=== PATIENT | female | born 1970 | race American Indian/Alaskan Native ===

== ENCOUNTER 2017-10-21 11:54 | Emergency (ER) | payer BC ==
--- NOTE | 2017-10-21 16:49 | Emergency Department Report ---
Abscess Boil HPI - HPI Chief Complaint: Skin/Abscess/Foreign Body Stated Complaint: C/O OF KNOT FROM BITE/RIGHT THIGH Time Seen by Provider: 10/21/17 16:21 Duration: 2 Days Location: Lower Extremity Severity: Mild History: Yes Pain, No Fever, No Purulent Drainage, No Numbness, No Foreign Body , No Previous History, No Insect Bite HPI: This is a 47-year-old female nontoxic, well nourished in appearance, no acute signs of distress presents to the ED with c/o of right thigh abscess x2 days. Patient stated that she was bitten by unknown insect and then developed a small redness that increase as of today. Patient denies any pus, drainage, fever, chills, nausea, vomiting, chest pain or strength of breath. Patient states allergies to aspirin. Past medical history includes arthritis and diabetes. Home Medications: Previous Rx's Medication Instructions Recorded Last Taken Type Acetaminophen/Codeine [Tylenol #3] 1 tab PO Q6H PRN #15 tab 02/21/15 Unknown Rx Furosemide [Lasix TAB] 20 mg PO QDAY #30 tablet 02/21/15 Unknown Rx Sulfamethoxazole/Trimethoprim 1 each PO BID #14 tablet 10/21/17 Unknown Rx [Bactrim DS TAB] traMADol [Ultram] 50 mg PO Q6HR PRN #12 tablet 10/21/17 Unknown Rx Allergies/Adverse Reactions: Allergies Allergy/AdvReac Type Severity Reaction Status Date / Time aspirin Allergy Vomiting Verified 02/21/15 14:52 ED Review of Systems ROS: Stated complaint: C/O OF KNOT FROM BITE/RIGHT THIGH Other details as noted in HPI Constitutional: denies: chills, fever Eyes: denies: eye pain, eye discharge, vision change ENT: denies: ear pain, throat pain Respiratory: denies: cough, shortness of breath, wheezing Cardiovascular: denies: chest pain, palpitations Endocrine: no symptoms reported Gastrointestinal: denies: abdominal pain, nausea, diarrhea Genitourinary: denies: urgency, dysuria, discharge Musculoskeletal: denies: back pain, joint swelling, arthralgia Skin: denies: rash, lesions Neurological: denies: headache, weakness, paresthesias Psychiatric: denies: anxiety, depression Hematological/Lymphatic: denies: easy bleeding, easy bruising ED Past Medical Hx - Past Medical History Hx Diabetes: Yes Hx Arthritis: Yes (OSTEOARTHRITIS) - Surgical History Past Surgical History?: No - Social History Smoking Status: Never Smoker Substance Use Type: None - Medications Home Medications: Home Medications Medication Instructions Recorded Confirmed Last Taken Type Acetaminophen/Codeine [Tylenol #3] 1 tab PO Q6H PRN #15 tab 02/21/15 Unknown Rx Furosemide [Lasix TAB] 20 mg PO QDAY #30 tablet 02/21/15 Unknown Rx Sulfamethoxazole/Trimethoprim 1 each PO BID #14 tablet 10/21/17 Unknown Rx [Bactrim DS TAB] traMADol [Ultram] 50 mg PO Q6HR PRN #12 tablet 10/21/17 Unknown Rx ED Abscess Boil Physical Exam - Exam General: Vital signs noted. No distress. Alert and acting appropriately. GENERAL: The patient is a well-developed, well-nourished in no apparent distress. Patient is alert and acting appropriately for age. Alert and oriented 3, no apparent distress, normal gait, atraumatic. HEENT: Head is normocephalic and atraumatic. PERRL, Extraocular muscles are intact. Pupils are equal, round, and reactive to light and accommodation. Nares appeared normal. Mouth is well hydrated and without lesions. Mucous membranes are moist. Posterior pharynx clear of any exudate or lesions. Mouth is well hydrated and without lesions. Tonsils not erythematous or swollen. Uvula midline. Tongue elevated. Mucous members are moist. Posterior pharynx clear, no exudate or lesions. Patent airways. NECK: Supple. No carotid bruits. No lymphadenopathy or thyromegaly.nontender. No meningitic signs are noted. LUNGS: Clear to auscultation. Non labor breathing. No intercostal retractions. Symmetrical with respiration, no wheezing, no rales, or crackles. HEART: Regular rate and rhythm without murmur, rubs or gallops. No reproducible. S1, S2 present, regular rate and rhythm without murmur, no rubs, no gallops. ABDOMEN: Soft, nontender, and nondistended. Positive bowel sounds. No hepatosplenomegaly was noted. No guarding or rebound tenderness, negative epigastric bruit. Negative psoas sign, negative decker sign, negative McBurneys sign EXTREMITIES: Without any cyanosis, clubbing, rash, lesions or edema. Peripheral pulses intact. Capillary refill less than 2 seconds. Full range of motion bilaterally. NEUROLOGIC: Cranial nerves II through XII are grossly intact. Alert and oriented x 3. Normal gait. Symmetrical strength and sensation. Reflexes 2+ throughout. Cerebellar testing normal. GCS score of 15. PSYCHIATRIC: Normal affect with no suicidal or homicidal ideations. Skin: 2 cm abscess with induration and fluctuance. Tender to touch. No pus or drainage noted. Front/Back of Body, Lg (Color): 1 - 2 cm abscess Size: 2 cm Exam: Yes Tenderness, Yes Fluctuance, Yes Normal Neurologic Exam, Yes Normal Circulation, No Surrounding Cellulites/Erythema, No Lymphangitis, No Crepitation , No Heart Murmur I & D Note - I & D Note I & D Note: Under sterile field, I used Betadine to cleanse the area. I then used 2% Lidocaine plain with 25-gauge 5/8 needle to inject area for anesthetic purposes. Total volume injected 3 mL. I then used an 11 blade to make a 1 cm incision. About 2 mL's of purulent drainage has been noted. I then used a hemostat to break the abscess formation. I then used sterile 0.9% normal saline flush to flush the wound with total volume of 40 mL used. I then put a 1 /4 iodoform packing to the incision. A sterile 4 x 4 with tape has been applied as dressing. Bleeding is under control. Patient tolerated the procedure well with no signs of distress noted. ED Course Vital Signs 10/21/17 12:05 Temperature 98.2 F Pulse Rate 114 H Blood Pressure 112/64 O2 Sat by Pulse 97 Oximetry - Reevaluation(s) Reevaluation #1: 10/21/17 16:50 Patient is speaking in full sentences with no signs of distress noted. Critical care attestation.: If time is entered above; I have spent that time in minutes in the direct care of this critically ill patient, excluding procedure time. ED Medical Decision Making - Medical Decision Making This is a 47-year-old female that presents with left lateral thigh abscess. Patient is stable and was examined by me. This is incision and drainage and has been performed and patient tolerated well. A sterile dressing has been applied. Patient was educated on proper wound care. Patient is discharged with Bactrim and Ultram and was instructed not to operate any machinery while taking Ultram due to drowsiness. Patient was instructed to return in 2 days for packing removal. Patient was instructed to refer to Follow-up with a primary care doctor in 3-5 days or if symptoms worsen and continue return to emergency room as soon as possible. At time of discharge, the patient does not seem toxic or ill in appearance. No acute signs of distress noted. Patient agrees to discharge treatment plan of care. No further questions noted by the patient. ED Disposition Clinical Impression: Abscess, Encounter for incision and drainage procedure Disposition: TO HOME OR SELFCARE Is pt being admited?: No Does the pt Need Aspirin: No Condition: Stable Instructions: Abscess Incision and Drainage (ED), Abscess (ED), Tramadol (By mouth), Sulfamethoxazole/Trimethoprim (By mouth) Additional Instructions: Follow-up with a primary care doctor in 3-5 days or if symptoms worsen and continue return to emergency room as soon as possible. Return in 2 days for packing removal and reassessment of your abscess. Do not operate any machinery while taking Ultram due to possible drowsiness. Prescriptions: Sulfamethoxazole/Trimethoprim [Bactrim DS TAB] 1 each PO BID #14 tablet traMADol [Ultram] 50 mg PO Q6HR PRN #12 tablet PRN Reason: Pain Referrals: PRIMARY CAREMD [Primary Care Provider] - 3-5 Days EVANS TYSON MD [Staff Physician] - 3-[address] [facility] [Outside] - 3-5 Days [facility] [Outside] - 3-5 Days Forms: Work/School Release Form(ED)
[2017-10-21] MEDS ORDERED: XYLOCAINE 2% INFILTRATI ONE (16:53)
[2017-10-21 17:43] VITALS: BP 116/61
== END 2017-10-21 17:42 | disposition home or self-care (01) ==
LOC: ED 11:54
DX: L02.415 Cutaneous abscess of right lower limb (principal); E11.9 Type 2 diabetes mellitus without complications; M19.90 Unspecified osteoarthritis, unspecified site; Z88.6 Allergy status to analgesic agent
CPT/HCPCS: 99282

== ENCOUNTER 2017-10-23 09:42 | Emergency (ER) | payer BC ==
[2017-10-23 09:51] VITALS: BP 139/77
--- NOTE | 2017-10-23 12:13 | Emergency Department Report ---
Suture/Staple Removal - [facility] Chief Complaint: Laceration/Recheck/Suture Stated Complaint: PACKING REMOVAL Time Seen by Provider: 10/23/17 12:10 When Sutures or Joselin Placed: 2 days ago Wound Location: right lateral thigh ED Review of Systems ROS: Stated complaint: PACKING REMOVAL Other details as noted in HPI Constitutional: denies: chills, fever Respiratory: denies: cough, shortness of breath, wheezing Cardiovascular: denies: chest pain, palpitations Gastrointestinal: denies: abdominal pain, nausea, diarrhea Skin: lesions (1 cm wound on the right thigh with packing, 4 x 4 gauze and surgical tape dressing). denies: rash Neurological: denies: headache, weakness, numbness, paresthesias Psychiatric: denies: anxiety, depression ED Past Medical Hx - Past Medical History Hx Diabetes: Yes Hx Arthritis: Yes (OSTEOARTHRITIS) Additional medical history: fibromyalgia - Surgical History Additional Surgical History: c sect - Social History Smoking Status: Never Smoker Substance Use Type: None - Medications Home Medications: Home Medications Medication Instructions Recorded Confirmed Last Taken Type Acetaminophen/Codeine [Tylenol #3] 1 tab PO Q6H PRN #15 tab 02/21/15 Unknown Rx Furosemide [Lasix TAB] 20 mg PO QDAY #30 tablet 02/21/15 Unknown Rx Sulfamethoxazole/Trimethoprim 1 each PO BID #14 tablet 10/21/17 Unknown Rx [Bactrim DS TAB] traMADol [Ultram] 50 mg PO Q6HR PRN #12 tablet 10/21/17 Unknown Rx Suture Removal Exam - Exam General: Vital signs noted. No distress. Alert and acting appropriately. Wound: Yes Tenderness, No Pathologic Erythema, No Drainage, No Pus, No Wound Dehiscence Other Systems: All other systems reviewed and are unremarkable. ED Course Vital Signs 10/23/17 09:48 Temperature 98.6 F Pulse Rate 105 H Respiratory 16 Rate Blood Pressure 139/77 O2 Sat by Pulse 96 Oximetry ED Recheck MDM - Differential Diagnosis Wound Recheck - Medical Decision Making This is a 47 y.o. female that presents for packing removal of right lateral thigh wound. Patient is stable and examined by me. No acute signs of distress noted. Remove packing with forceps, cleaned with Betadine, applied 4 x 4 gauze and surgical tape dressing. Discussed plan to complete antibiotics as prescribed. Educated patient on wound assessment and signs of infection. Patient agrees to ED plan of care. Discharged home and follow up with PCP in 2- 3 days. Critical care attestation.: If time is entered above; I have spent that time in minutes in the direct care of this critically ill patient, excluding procedure time. ED Disposition Clinical Impression: Abscess packing removal Disposition: TO HOME OR SELFCARE Is pt being admited?: No Does the pt Need Aspirin: No Condition: Stable Instructions: Wound Healing and Your Diet (ED), Abscess (ED) Additional Instructions: Complete full round of bactrim DS antibiotic as prescribed. Follow up with primary care provider in 2-3 days. Return to ER if foul smelling discharge, swelling, or severe pain to wound. Referrals: [facility] [Outside] - 3-5 Days [facility] [Outside] - 3-5 Days [facility] [Outside] - 3-5 Days Forms: Work/School Release Form(ED) Time of Disposition: 12:20 Print Language: DANISH
--- NOTE | 2017-10-23 12:24 | Emergency Department Report ---
Chief Complaint: Laceration/Recheck/Suture Stated Complaint: PACKING REMOVAL Time Seen by Provider: 10/23/17 12:10 - HPI History of Present Illness: The patient's for 47-year-old female with a history of diabetes, whom presents for removal of abscess packing. She states that she received incision and drainage of abscess 2 days ago and was informed to return for removal of the packing. She reports decrease in pain and drainage from her wound. She also denies fever, paresthesias, motor deficit, color change in the right leg. - Exam Vital Signs: Vital Signs 10/23/17 09:48 Temperature 98.6 F Pulse Rate 105 H Respiratory 16 Rate Blood Pressure 139/77 O2 Sat by Pulse 96 Oximetry Physical Exam: General: well-nourished, well-developed, no acute distress, patient morbidly obese Head: Normocephalic, atraumatic Eyes: normal sclera ENT: Mucous membranes are pale and dry Neck: No neck stiffness, no cervical adenopathy Respiratory: Breath sounds equal bilaterally, no wheezing, rales, or rhonchi Cardio: S1 and S2 present, no murmurs, rubs, gallops, capillary refill is delayed Abdomen: Normoactive bowel sounds, soft abdomen, no rigidity, no guarding or rebound tenderness Musc: Minimal erythema surrounding I&D wound with packing, no purulent drainage or discharge at this time, sensation, motor deficit, and pulses intact in the right lower leg distal to the wound, the compartments are soft and pliable, no signs of compartment syndrome Skin: No rash Neuro: no facial drooping, normal speech Psych: Normal affect MSE screening note: Focused history and physical exam performed. Due to findings the following was ordered: ED Disposition for MSE Clinical Impression: Abscess packing removal Disposition: - TO HOME OR SELFCARE Is pt being admited?: No Does the pt Need Aspirin: No Condition: Stable Instructions: Wound Healing and Your Diet (ED), Abscess (ED) Additional Instructions: Complete full round of bactrim DS antibiotic as prescribed. Follow up with primary care provider in 2-3 days. Return to ER if foul smelling discharge, swelling, or severe pain to wound. Referrals: [facility] [place] [Outside] - 3-5 Days [facility] [Outside] - 3-5 Days [facility] [Outside] - 3-5 Days Forms: Work/School Release Form(ED) Print Language: CENTRAL AFRICAN
== END 2017-10-23 12:29 | disposition home or self-care (01) ==
LOC: ED 09:42
DX: Z48.01 Encounter for change or removal of surgical wound dressing (principal); M19.90 Unspecified osteoarthritis, unspecified site; E11.9 Type 2 diabetes mellitus without complications; M79.7 Fibromyalgia

== ENCOUNTER 2018-01-23 17:01 | Emergency (ER) | payer BC, OTHER ==
[2018-01-23] MEDS ORDERED: MOTRIN PO ONE ×2 (17:09→22:14)
[2018-01-23 18:10] LABS: Basophils % (Auto) 0.4 % (0.0-1.8); Eosinophils # (Auto) 0.1 K/mm3 (0.0-0.4); Eosinophils % (Auto) 0.8 % (0.0-4.3); Lymphocytes # (Auto) 2.7 K/mm3 (1.2-5.4); Lymphocytes % (Auto) 31.6 % (13.4-35.0); Mean Corpuscular HGB Conc 36 % (30-34); Mean Corpuscular Hemoglobin 31 pg (28-32); Mean Corpuscular Volume 85 fl (79-97); Monocytes # (Auto) 0.6 K/mm3 (0.0-0.8); Monocytes % (Auto) 7.2 % (0.0-7.3); Platelet Count 349 K/mm3 (140-440); Red Blood Count 4.34 M/mm3 (3.65-5.03); Red Cell Distribution Width 13.5 % (13.2-15.2)
[2018-01-23 18:18] LABS: Hematocrit 37.1 % (30.3-42.9); Hemoglobin 13.5 gm/dl (10.1-14.3)
[2018-01-23 18:19] LABS: BUN/Creatinine Ratio 20; Blood Urea Nitrogen 10 mg/dL (7-17); Calcium 9.3 mg/dL (8.4-10.2); Hemolysis Index 3
[2018-01-23 21:53] LABS: Bacteria,Urine 1+ /HPF (Negative); Bilirubin,Urine NEG (Negative); Blood,Urine NEG (Negative); Color,Urine Yellow (Yellow); Mucus,Urine FEW /HPF; Protein,Urine <15 mg/dL mg/dL (Negative); Urobilinogen,Urine < 2.0 mg/dL (<2.0)
[2018-01-23] MEDS ORDERED: ZOFRAN IV ONE (22:48)
[2018-01-23] MEDS ORDERED: DILAUDID IV ONE (22:48)
[2018-01-23] MEDS ORDERED: ROCEPHIN/NS 1 GM/50 ML 1 GM/50 ML BAG IV ONE (22:48)
--- NOTE | 2018-01-23 22:55 | Emergency Department Report ---
HPI - General Chief Complaint: Headache Time Seen by Provider: 01/23/18 22:40 - HPI HPI: Francisco 26 The patient is a 47-year-old female presented with the chief complaint of scalp pain. The patient states for 2 weeks she said "blisters" in her hair. Patient states the pain was initially intermittent. Patient denies drainage but admits to subjective fever. Patient denies any new shampoos or body washes. The patient's hair is dyed and she states it is the same dye that she's always used. The patient states scalp pain triggering her fibromyalgia causing pain in her shoulders Location: [See above] Duration: 2 weeks Quality: Pain Severity: 03/10 Modifying factors: [see above] Context: [see above] Mode of transportation: [not driving] ED Past Medical Hx - Past Medical History Hx Diabetes: Yes Hx Arthritis: Yes (OSTEOARTHRITIS) Additional medical history: fibromyalgia - Surgical History Additional Surgical History: c sect - Family History Family history: no significant - Social History Smoking Status: Former Smoker (none 1 year) Substance Use Type: None (denies illicit drug use) - Medications Home Medications: Home Medications Medication Instructions Recorded Confirmed Last Taken Type Furosemide [Lasix TAB] 20 mg PO QDAY #30 tablet 02/21/15 Unknown Rx Famotidine [Pepcid] 20 mg PO BID #14 tablet 11/23/17 Unknown Rx Insulin Lispro [HumaLOG VIAL] 0 units SQ AC #1 vial 11/23/17 Unknown Rx Lispro Insulin [Humalog] 10 unit SUB-Q AC #1 vial 11/23/17 Unknown Rx diphenhydrAMINE [Benadryl CAP] 25 mg PO Q8HR #20 capsule 11/23/17 Unknown Rx oxyCODONE /ACETAMINOPHEN [Percocet 1 tab PO Q6H PRN #20 tablet 11/23/17 Unknown Rx 5/325 mg] Amoxicillin/K Clav Tab [Augmentin 1 each PO Q12HR #6 tablet 11/25/17 Unknown Rx 500 MG TAB] Insulin Glargine [Lantus VIAL] 38 units SUB-Q QHS #1 vial 11/25/17 Unknown Rx Lispro Insulin [Humalog] 13 unit SUB-Q AC #1 vial 11/25/17 Unknown Rx Metformin HCl [Glucophage] 1,000 mg PO BID #60 tablet 11/25/17 Unknown Rx glipiZIDE [Glucotrol] 10 mg PO BID #60 tab 11/25/17 Unknown Rx Cephalexin [Keflex] 500 mg PO QID #40 capsule 01/23/18 Unknown Rx HYDROcodone/APAP 5-325 [[place] 1 - 2 each PO Q6HR PRN #20 tablet 01/23/18 Unknown Rx 5/325] Sulfamethoxazole/Trimethoprim 1 each PO BID #20 tablet 01/23/18 Unknown Rx [Bactrim DS TAB] ED Review of Systems ROS: Stated complaint: TOP HEAD BLISTERS/DIZZY Other details as noted in HPI Constitutional: fever (subjective) Eyes: denies: eye pain ENT: denies: throat pain Respiratory: no symptoms reported Cardiovascular: denies: chest pain Endocrine: no symptoms reported Gastrointestinal: denies: abdominal pain Genitourinary: denies: dysuria Musculoskeletal: denies: back pain Skin: lesions Neurological: denies: headache (patient has scalp pain not headache) Physical Exam - Physical Exam Vital Signs: Vital Signs 01/23/18 17:06 Temperature 98.5 F Pulse Rate 97 H Respiratory 16 Rate Blood Pressure 170/89 O2 Sat by Pulse 99 Oximetry Physical Exam: GENERAL: The patient is well-developed well-nourished female sitting on a stretcher appearing to be in moderate discomfort holding her scalp. [] HEENT: Normocephalic. Atraumatic. Extraocular motions are intact. There is a pustule measuring approximately 7 mm in diameter noted to the calvarium. Patient's scalp is tender to touch. No fluctuance appreciated NECK: Supple. No meningitic signs are noted. Trachea midline CHEST/LUNGS: Clear to auscultation. There is no respiratory distress noted. HEART/CARDIOVASCULAR: Regular. There is no tachycardia. There is no gallop rub or murmur. ABDOMEN: Abdomen is soft, nontender. Patient has normal bowel sounds. There is no abdominal distention. SKIN: There is a pustule measuring approximately 7 mm in diameter noted to the calvarium. Patient's scalp is tender to touch. No fluctuance appreciated. There is no diaphoresis. NEURO: The patient is awake, alert, and oriented. The patient is cooperative. The patient has no focal neurologic deficits. The patient has normal speech. Cranial nerves II-12 grossly intact, no drift MUSCULOSKELETAL: There is no evidence of acute injury. ED Course Vital Signs 01/23/18 17:06 Temperature 98.5 F Pulse Rate 97 H Respiratory 16 Rate Blood Pressure 170/89 O2 Sat by Pulse 99 Oximetry ED Medical Decision Making - Lab Data Result diagrams: 01/23/18 17:56 01/23/18 17:56 Laboratory Tests 01/23/18 01/23/18 01/23/18 17:56 17:56 17:56 WBC 8.7 RBC 4.34 Hgb 13.5 Hct 37.1 MCV 85 MCH 31 MCHC 36 H RDW 13.5 Plt Count 349 Lymph % (Auto) 31.6 Gordon % (Auto) 7.2 Eos % (Auto) 0.8 Baso % (Auto) 0.4 Lymph # 2.7 Gordon # 0.6 Eos # 0.1 Baso # 0.0 Seg Neutrophils % 60.0 Seg Neutrophils # 5.2 VBG pH 7.380 Sodium 134 L Potassium 4.2 Chloride 95.0 L Carbon Dioxide 25 Anion Gap 18 BUN 10 Creatinine 0.5 L Estimated GFR > 60 BUN/Creatinine Ratio 20 Glucose 392 H POC Glucose Calcium 9.3 Urine Color Urine Turbidity Urine pH Ur Specific Stanley Urine Protein Urine Glucose (UA) Urine Ketones Urine Blood Urine Nitrite Urine Bilirubin Urine Urobilinogen Ur Leukocyte Esterase Urine WBC (Auto) Urine RBC (Auto) U Epithel Cells (Auto) Urine Bacteria (Auto) Urine Mucus 01/23/18 01/23/18 21:17 22:52 WBC RBC Hgb Hct MCV MCH MCHC RDW Plt Count Lymph % (Auto) Gordon % (Auto) Eos % (Auto) Baso % (Auto) Lymph # Gordon # Eos # Baso # Seg Neutrophils % Seg Neutrophils # VBG pH Sodium Potassium Chloride Carbon Dioxide Anion Gap BUN Creatinine Estimated GFR BUN/Creatinine Ratio Glucose POC Glucose 200 H Calcium Urine Color Yellow Urine Turbidity Clear Urine pH 5.0 Ur Specific Stanley 1.026 Urine Protein <15 mg/dl Urine Glucose (UA) 50 Urine Ketones Neg Urine Blood Neg Urine Nitrite Neg Urine Bilirubin Neg Urine Urobilinogen < 2.0 Ur Leukocyte Esterase Neg Urine WBC (Auto) 1.0 Urine RBC (Auto) 1.0 U Epithel Cells (Auto) 3.0 Urine Bacteria (Auto) 1+ Urine Mucus Few - EKG Data -: EKG Interpreted by Me Rate: normal - EKG Data When compared to previous EKG there are: previous EKG unavailable Interpretation: other (A. fib at 86 bpm. Frequent PVCs) - Differential Diagnosis folliculitis Critical care attestation.: If time is entered above; I have spent that time in minutes in the direct care of this critically ill patient, excluding procedure time. ED Disposition Clinical Impression: Acute folliculitis, Scalp pain Disposition: TO HOME OR SELFCARE Is pt being admited?: No Does the pt Need Aspirin: No Condition: Stable Instructions: Folliculitis (ED) Additional Instructions: Return to the emergency department immediately should you develop worsening symptoms, fever, inability to tolerate food or liquid or any other concerns. 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 Please follow up with him for further evaluation) Time of Disposition: 23:13 (d/c after meds)
[2018-01-23 23:46] VITALS: BP 134/71
== END 2018-01-23 23:48 | disposition home or self-care (01) ==
LOC: ED 17:01
DX: L73.9 Follicular disorder, unspecified (principal); R51 Headache; E11.9 Type 2 diabetes mellitus without complications; M19.90 Unspecified osteoarthritis, unspecified site; Z87.891 Personal history of nicotine dependence; Z79.4 Long term (current) use of insulin; Z79.899 Other long term (current) drug therapy
CPT/HCPCS: 36415; 80048; 81001; 82805; 82962; 85025; 96365; 96375; 99284; J0696; J1170; J2405

== ENCOUNTER 2018-03-18 14:24 | Emergency (ER) | payer OTHER ==
[2018-03-18 14:43] VITALS: BP 165/87
--- NOTE | 2018-03-18 17:22 | Emergency Department Report ---
- General Chief Complaint: Skin/Abscess/Foreign Body Stated Complaint: INFECTION FROM SURGERY Time Seen by Provider: 03/18/18 17:16 Source: patient Mode of arrival: Wheelchair Limitations: No Limitations - History of Present Illness Initial Comments: This is a 47-year-old female nontoxic, well nourished in appearance, no acute signs of distress presents to the ED with c/o of wound dressing changes. They state she was released from the hospital yesterday for a incision and drainage and surgical OR and has been giving home health nurses for dressing changes but stated that she has not sent her anybody today. She stated that she must have a dressing changes daily. Patient stated that she most likely the dressing change nurse will come tomorrow. Patient did not say any fever, vomiting, chest pain, short of breath, headache, stiff neck, numbness or tingling. Allergies include aspirin. Location: other (right buttock) - Related Data Home Medications Medication Instructions Recorded Confirmed Last Taken Gabapentin [Neurontin] 900 mg PO Q8HR 03/13/18 03/13/18 Unknown Methocarbamol [Robaxin TAB] 750 mg PO QHS 03/13/18 03/13/18 Unknown Milnacipran HCl [Savella] 50 mg PO BID 03/13/18 03/13/18 Unknown Previous Rx's Medication Instructions Recorded Last Taken Type Furosemide [Lasix TAB] 20 mg PO QDAY #30 tablet 02/21/15 Unknown Rx Famotidine [Pepcid] 20 mg PO BID #14 tablet 11/23/17 Unknown Rx Insulin Lispro [HumaLOG VIAL] 0 units SQ AC #1 vial 11/23/17 Unknown Rx Lispro Insulin [Humalog] 10 unit SUB-Q AC #1 vial 11/23/17 Unknown Rx Lispro Insulin [Humalog] 13 unit SUB-Q AC #1 vial 11/25/17 Unknown Rx Insulin Glargine [Lantus VIAL] 42 units SUB-Q QHS #1 vial 03/17/18 Unknown Rx Sulfamethoxazole/Trimethoprim 2 each PO BID 10 Days tablet 03/17/18 Unknown Rx [Bactrim DS TAB] oxyCODONE /ACETAMINOPHEN [Percocet 1 tab PO Q4H PRN #14 tablet 03/17/18 Unknown Rx 5/325 mg] Allergies Allergy/AdvReac Type Severity Reaction Status Date / Time aspirin Allergy Vomiting Verified 02/21/15 14:52 ED Review of Systems ROS: Stated complaint: INFECTION FROM SURGERY Other details as noted in HPI Constitutional: denies: chills, fever Eyes: denies: eye pain, eye discharge, vision change ENT: denies: ear pain, throat pain Respiratory: denies: cough, shortness of breath, wheezing Cardiovascular: denies: chest pain, palpitations Endocrine: no symptoms reported Gastrointestinal: denies: abdominal pain, nausea, diarrhea Genitourinary: denies: urgency, dysuria, discharge Musculoskeletal: denies: back pain, joint swelling, arthralgia Skin: denies: rash, lesions Neurological: denies: headache, weakness, paresthesias Psychiatric: denies: anxiety, depression Hematological/Lymphatic: denies: easy bleeding, easy bruising ED Past Medical Hx - Past Medical History Hx Hypertension: Yes Hx Diabetes: Yes Hx Liver Disease: No Hx Renal Disease: No Hx Sickle Cell Disease: No Hx Arthritis: Yes Hx Seizures: No Hx Asthma: No Hx COPD: No Additional medical history: fibromyalgia - Surgical History Hx Pacemaker: No Hx Internal Defibrillator: No Additional Surgical History: c sect - Social History Smoking Status: Never Smoker Substance Use Type: None - Medications Home Medications: Home Medications Medication Instructions Recorded Confirmed Last Taken Type Furosemide [Lasix TAB] 20 mg PO QDAY #30 tablet 02/21/15 Unknown Rx Famotidine [Pepcid] 20 mg PO BID #14 tablet 11/23/17 Unknown Rx Insulin Lispro [HumaLOG VIAL] 0 units SQ AC #1 vial 11/23/17 Unknown Rx Lispro Insulin [Humalog] 10 unit SUB-Q AC #1 vial 11/23/17 Unknown Rx Lispro Insulin [Humalog] 13 unit SUB-Q AC #1 vial 11/25/17 Unknown Rx Gabapentin [Neurontin] 900 mg PO Q8HR 03/13/18 03/13/18 Unknown History Methocarbamol [Robaxin TAB] 750 mg PO QHS 03/13/18 03/13/18 Unknown History Milnacipran HCl [Savella] 50 mg PO BID 03/13/18 03/13/18 Unknown History Insulin Glargine [Lantus VIAL] 42 units SUB-Q QHS #1 vial 03/17/18 Unknown Rx Sulfamethoxazole/Trimethoprim 2 each PO BID 10 Days tablet 10/17/18 Unknown Rx [Bactrim DS TAB] oxyCODONE /ACETAMINOPHEN [Percocet 1 tab PO Q4H PRN #14 tablet 03/17/18 Unknown Rx 5/325 mg] ED Physical Exam - General Limitations: No Limitations General appearance: alert, in no apparent distress - Head Head exam: Present: atraumatic, normocephalic - Eye Eye exam: Present: normal appearance - ENT ENT exam: Present: mucous membranes moist - Neck Neck exam: Present: normal inspection - Respiratory Respiratory exam: Present: normal lung sounds bilaterally. Absent: respiratory distress - Cardiovascular Cardiovascular Exam: Present: regular rate, normal rhythm. Absent: systolic murmur, diastolic murmur, rubs, gallop - GI/Abdominal GI/Abdominal exam: Present: soft, normal bowel sounds - Rectal Rectal exam: Present: normal inspection, other (open wound about 3 in x3 in with foul odor and purulent drainage. Iodupform packing in place.) - Extremities Exam Extremities exam: Present: normal inspection - Back Exam Back exam: Present: normal inspection - Neurological Exam Neurological exam: Present: alert, oriented X3 - Psychiatric Psychiatric exam: Present: normal affect, normal mood - Skin Skin exam: Present: warm, dry, intact, normal color. Absent: rash ED Course Vital Signs 03/18/18 14:36 Temperature 97.9 F Pulse Rate 91 H Respiratory 20 Rate Blood Pressure 165/87 O2 Sat by Pulse 97 Oximetry - Reevaluation(s) Reevaluation #1: 03/18/18 17:25 Patient is speaking in full sentences with no signs of distress noted. ED Medical Decision Making - Medical Decision Making This is a 47-year-old female who presents with a dressing change. Patient is stable and was examined by me. The dressing has been change successfully with one half iodoform placed as well as cleaned with Betadine and water as well as wound cleansing soap. Sterile dressing has been applied. I did educate on proper wound care. Patient stated that she does have wound health care nurse with [facility]. Patient was referred to Follow-up with a primary care doctor in 3-5 days or if symptoms worsen and continue return to emergency room as soon as possible. At time of discharge, the patient does not seem toxic or ill in appearance. No acute signs of distress noted. Patient agrees to discharge treatment plan of care. No further questions noted by the patient. Critical care attestation.: If time is entered above; I have spent that time in minutes in the direct care of this critically ill patient, excluding procedure time. ED Disposition Clinical Impression: Encounter for surgical wound dressing change Disposition: TO HOME OR SELFCARE Is pt being admited?: No Does the pt Need Aspirin: No Condition: Stable Instructions: Acute Wound Care (ED) Additional Instructions: Follow-up with a primary care doctor in 3-5 days or if symptoms worsen and continue return to emergency room as soon as possible. Continue taking antibiotics as prescribed to you during her previous visit. Referrals: PRIMARY CAREMD [Primary Care Provider] - 3-5 Days EVANS TYSON MD [Staff Physician] - 3-5 Days [facility] [place] [Outside] - 3-5 Days [facility] [Outside] - 3-5 Days Forms: Work/School Release Form(ED)
== END 2018-03-18 18:15 | disposition home or self-care (01) ==
LOC: ED 14:24
DX: Z48.01 Encounter for change or removal of surgical wound dressing (principal); I10 Essential (primary) hypertension; E11.9 Type 2 diabetes mellitus without complications; Z79.4 Long term (current) use of insulin; M79.7 Fibromyalgia; Z88.6 Allergy status to analgesic agent
CPT/HCPCS: 99282

== ENCOUNTER 2019-04-21 05:56 | Emergency (ER) | payer BC, OTHER ==
[2019-04-21] MEDS ORDERED: oxyCODONE /ACETAMINOPHEN 5-325MG TAB PO ONE (08:11)
[2019-04-21] MEDS ORDERED: GABAPENTIN 300 MG CAP PO ONE (08:12)
--- NOTE | 2019-04-21 08:18 | Emergency Department Report ---
ED General Adult HPI - General Chief complaint: Neuro Symptoms/Deficit Stated complaint: BILATERAL SWOLLEN FEET/PAINFUL Time Seen by Provider: 04/21/19 08:11 Source: patient Mode of arrival: Ambulatory Limitations: No Limitations - History of Present Illness Initial comments: Mrs. Philippe is a 48 yo female with hx of DM, HTN, fibromyalgia and OA who prese nts with pain in legs and feet for the past 3 weeks. She has had discoloration in her feet, cold blue as if she has "frostbite". She has not had gabapentin for the past month. The dose is 900 mg three times a day. She currently does not have a PCP. She has not taken BP medications in quite some times. Currently, she has burning pain in her hands and legs. She has had intermittent nondescript chest pain, not associated with exertion. No association with shortness of breath. -: Gradual, week(s) (3) Location: left, right, upper extremity, lower extremity Severity scale (0 -10): 9 Quality: burning Consistency: constant Improves with: none Worsens with: none Associated Symptoms: denies other symptoms Treatments Prior to Arrival: none - Related Data Home Medications Medication Instructions Recorded Confirmed Last Taken Gabapentin 900 mg PO Q8HR 03/13/18 03/13/18 Unknown Milnacipran HCl [Savella] 50 mg PO BID 03/13/18 03/13/18 Unknown methOCARBAMOL [Robaxin TAB] 750 mg PO QHS 03/13/18 03/13/18 Unknown Previous Rx's Medication Instructions Recorded Last Taken Type Furosemide [Lasix TAB] 20 mg PO QDAY #30 tablet 02/21/15 Unknown Rx Famotidine [Pepcid] 20 mg PO BID #14 tablet 11/23/17 Unknown Rx Insulin Lispro [HumaLOG VIAL] 0 units SQ AC #1 vial 11/23/17 Unknown Rx Lispro Insulin [HumaLOG] 10 unit SUB-Q AC #1 vial 11/23/17 Unknown Rx Lispro Insulin [HumaLOG] 13 unit SUB-Q AC #1 vial 11/25/17 Unknown Rx Insulin Glargine [Lantus VIAL] 42 units SUB-Q QHS #1 vial 03/17/18 Unknown Rx Sulfamethoxazole/Trimethoprim 2 each PO BID 10 Days tablet 03/17/18 Unknown Rx [Bactrim DS TAB] oxyCODONE /ACETAMINOPHEN [Percocet 1 tab PO Q4H PRN #14 tablet 03/17/18 Unknown Rx 5/325 mg] Allergies Allergy/AdvReac Type Severity Reaction Status Date / Time aspirin Allergy Vomiting Verified 02/21/15 14:52 ED Review of Systems ROS: Stated complaint: BILATERAL SWOLLEN FEET/PAINFUL Other details as noted in HPI Comment: All other systems reviewed and negative Constitutional: denies: chills, fever, malaise Respiratory: denies: cough Cardiovascular: chest pain. denies: dyspnea on exertion Musculoskeletal: myalgia ED Past Medical Hx - Past Medical History Previous Medical History?: Yes Hx Hypertension: Yes Hx Diabetes: Yes Hx Liver Disease: No Hx Renal Disease: No Hx Sickle Cell Disease: No Hx Arthritis: Yes Hx Seizures: No Hx Asthma: No Hx COPD: No Additional medical history: fibromyalgia - Surgical History Past Surgical History?: Yes Hx Pacemaker: No Hx Internal Defibrillator: No Additional Surgical History: c sect - Social History Smoking Status: Never Smoker - Medications Home Medications: Home Medications Medication Instructions Recorded Confirmed Last Taken Type Furosemide [Lasix TAB] 20 mg PO QDAY #30 tablet 02/21/15 Unknown Rx Famotidine [Pepcid] 20 mg PO BID #14 tablet 11/23/17 Unknown Rx Insulin Lispro [HumaLOG VIAL] 0 units SQ AC #1 vial 11/23/17 Unknown Rx Lispro Insulin [HumaLOG] 10 unit SUB-Q AC #1 vial 11/23/17 Unknown Rx Lispro Insulin [HumaLOG] 13 unit SUB-Q AC #1 vial 11/25/17 Unknown Rx Gabapentin 900 mg PO Q8HR 03/13/18 03/13/18 Unknown History Milnacipran HCl [Savella] 50 mg PO BID 03/13/18 03/13/18 Unknown History methOCARBAMOL [Robaxin TAB] 750 mg PO QHS 03/13/18 03/13/18 Unknown History Insulin Glargine [Lantus VIAL] 42 units SUB-Q QHS #1 vial 03/17/18 Unknown Rx Sulfamethoxazole/Trimethoprim 2 each PO BID 10 Days tablet 03/17/18 Unknown Rx [Bactrim DS TAB] oxyCODONE /ACETAMINOPHEN [Percocet 1 tab PO Q4H PRN #14 tablet 03/17/18 Unknown Rx 5/325 mg] ED Physical Exam - General Limitations: No Limitations General appearance: alert, in no apparent distress - Head Head exam: Present: atraumatic, normocephalic - Eye Eye exam: Present: normal appearance - ENT ENT exam: Present: mucous membranes moist - Neck Neck exam: Present: normal inspection - Respiratory Respiratory exam: Present: normal lung sounds bilaterally, rhonchi. Absent: respiratory distress, wheezes, rales - Cardiovascular Cardiovascular Exam: Present: regular rate, normal rhythm, normal heart sounds. Absent: systolic murmur, diastolic murmur, rubs, gallop - GI/Abdominal GI/Abdominal exam: Present: soft, normal bowel sounds. Absent: distended, tenderness, guarding, rebound - Extremities Exam Extremities exam: Present: normal inspection - Neurological Exam Neurological exam: Present: alert, oriented X3 - Psychiatric Psychiatric exam: Present: normal affect, normal mood - Skin Skin exam: Present: warm, dry, intact, normal color. Absent: rash ED Course Vital Signs 04/21/19 04/21/19 04/21/19 06:04 06:45 07:35 Temperature 98.7 F 98.2 F Pulse Rate 112 H 102 H 116 H Respiratory 20 24 15 Rate Blood Pressure Blood Pressure 174/102 131/86 151/91 [Right] O2 Sat by Pulse 98 100 Oximetry 04/21/19 04/21/19 08:28 08:35 Temperature Pulse Rate 98 H 111 H Respiratory 14 Rate Blood Pressure 163/93 Blood Pressure 163/93 [Right] O2 Sat by Pulse Oximetry ED Medical Decision Making - Medical Decision Making Mrs. Philippe presents with pain typical of neuropathy which has been well-documen den since 2014. Withdrawal from Gabapentin has exacerbated her pain. Denies chest pain currently. I suspect tachycardia is due to pain. I do not suspect PE or ACS. 1. neuropathy: hx of fibromyalgia and peripheral neuropathy, no clinical evidence of PVD: prescribed gabapentin 300 mg TID until seen by her casket coverer and neurologist, also prescribed 10 tabs of percocet 2. HTN: referred to new outpatient physician field application engineer upon discharge repeat blood pressure 163/89 3. Diabetes mellitus: Home medication prescribed meformin 1000 mg twice a day and did note that patient had previous insulin prescriptions from 2018. She is currently not compliant with insulin therapy 4. Chest pain: Nonspecific low risk for ACS, referral form for chest pain evaluation sent to [facility] prior to discharge Critical care attestation.: If time is entered above; I have spent that time in minutes in the direct care of this critically ill patient, excluding procedure time. ED Disposition Clinical Impression: Uncontrolled diabetes mellitus, Fibromyalgia, Peripheral neuropathic pain, Peripheral neuropathy, Chest pain Disposition: TO HOME OR SELFCARE Is pt being admited?: No Does the pt Need Aspirin: No Condition: Stable Instructions: Diabetes Mellitus Type 2 in Adults (ED), Chest Pain (ED) Referrals: DESTINEY SPEARS DO [Staff Physician] - 3-5 Days Forms: Work/School Release Form(ED)
[2019-04-21] MEDS ORDERED: amLODIPine 5 MG TAB PO ONE (08:22)
[2019-04-21 08:29] VITALS: BP 163/93
== END 2019-04-21 09:07 | disposition home or self-care (01) ==
LOC: ED 05:56
DX: E11.65 Type 2 diabetes mellitus with hyperglycemia (principal); M79.7 Fibromyalgia; M79.2 Neuralgia and neuritis, unspecified; I10 Essential (primary) hypertension; E11.9 Type 2 diabetes mellitus without complications; M19.90 Unspecified osteoarthritis, unspecified site; Z98.890 Other specified postprocedural states; Z79.899 Other long term (current) drug therapy; Z88.6 Allergy status to analgesic agent
CPT/HCPCS: 82962; 93005; 93010

== ENCOUNTER 2019-05-07 11:01 | Emergency (ER) | payer OTHER ==
[2019-05-07 11:12] VITALS: BP 152/87
--- NOTE | 2019-05-07 11:21 | Event Note ---
ED Screening Note Date of service: 05/07/19 Time: 11:17 ED Screening Note: 48 y/o female comes in for swelling of hands and feet. Generalized pain. Worst on right side. Has no PCP. Has been off her fibromyaliga medication. This initial assessment/diagnostic orders/clinical plan/treatment(s) is/are subject to change based on patients health status, clinical progression and re- assessment by fellow clinical providers in the ED. Further treatment and workup at subsequent clinical providers discretion. Patient/guardian urged not to elope from the ED as their condition may be serious if not clinically assessed and managed. Initial orders include:
[2019-05-07] MEDS ORDERED: oxyCODONE /ACETAMINOPHEN 5-325MG TAB PO ONE (11:49)
[2019-05-07] MEDS ORDERED: predniSONE 20 MG TAB PO ONE (11:49)
[2019-05-07 11:52] LABS: Basophils % (Auto) 0.4 % (0.0-1.8); Eosinophils # (Auto) 0.1 K/mm3 (0.0-0.4); Eosinophils % (Auto) 0.8 % (0.0-4.3); Hematocrit 41.6 % (30.3-42.9); Hemoglobin 14.3 gm/dl (10.1-14.3); Lymphocytes # (Auto) 2.9 K/mm3 (1.2-5.4); Lymphocytes % (Auto) 42.3 % (13.4-35.0); Mean Corpuscular HGB Conc 34 % (30-34); Mean Corpuscular Volume 87 fl (79-97); Monocytes # (Auto) 0.5 K/mm3 (0.0-0.8); Monocytes % (Auto) 7.7 % (0.0-7.3); Platelet Count 351 K/mm3 (140-440); Red Cell Distribution Width 13.6 % (13.2-15.2)
--- NOTE | 2019-05-07 12:00 | Emergency Department Report ---
ED General Adult HPI - General Chief complaint: Pain General Stated complaint: OFF BALANCE/BODY CRAMPING ALL OVER Time Seen by Provider: 05/07/19 11:17 Source: patient Mode of arrival: Ambulatory Limitations: No Limitations - History of Present Illness Initial comments: CC: "I am not getting better:" HPI: Mrs. Philippe is a 48 yo female with hx of IDDM, fibromyalgia, COPD who presents with diffuse burning pain in her arms and legs. Persistent pain since I have evaluated her greater than 2 weeks ago 04/21/2019. She wants to know what is wrong with her. She has been unable to work due to severe pain. Consequently, she is unable to afford her co-pay. Diffuse burning persistent pain in arms and legs. She is able to walk. No trouble with speech or paralysis. -: Gradual, week(s) (several weeks) Location: left, right, upper extremity, lower extremity Quality: burning Consistency: constant Improves with: none Worsens with: none Associated Symptoms: denies other symptoms Treatments Prior to Arrival: none - Related Data Home Medications Medication Instructions Recorded Confirmed Last Taken Gabapentin 900 mg PO Q8HR 03/13/18 03/13/18 Unknown Milnacipran HCl [Savella] 50 mg PO BID 03/13/18 03/13/18 Unknown methOCARBAMOL [Robaxin TAB] 750 mg PO QHS 03/13/18 03/13/18 Unknown Previous Rx's Medication Instructions Recorded Last Taken Type Furosemide [Lasix TAB] 20 mg PO QDAY #30 tablet 02/21/15 Unknown Rx Famotidine [Pepcid] 20 mg PO BID #14 tablet 11/23/17 Unknown Rx Insulin Lispro [HumaLOG VIAL] 0 units SQ AC #1 vial 11/23/17 Unknown Rx Lispro Insulin [HumaLOG] 10 unit SUB-Q AC #1 vial 11/23/17 Unknown Rx Lispro Insulin [HumaLOG] 13 unit SUB-Q AC #1 vial 11/25/17 Unknown Rx Insulin Glargine [Lantus VIAL] 42 units SUB-Q QHS #1 vial 03/17/18 Unknown Rx Sulfamethoxazole/Trimethoprim 2 each PO BID 10 Days tablet 03/17/18 Unknown Rx [Bactrim DS TAB] oxyCODONE /ACETAMINOPHEN [Percocet 1 tab PO Q4H PRN #14 tablet 03/17/18 Unknown Rx 5/325 mg] Gabapentin 300 mg PO Q8HR #90 capsule 04/21/19 Unknown Rx Metformin HCl [metFORMIN] 1,000 mg PO BID #60 tablet 04/21/19 Unknown Rx oxyCODONE /ACETAMINOPHEN [Percocet 1 tab PO Q6HR PRN #10 tablet 04/21/19 Unknown Rx 5/325] Cyclobenzaprine [Flexeril 10 MG 10 mg PO QHS 14 Days #14 tablet 05/07/19 Unknown Rx TAB] Allergies Allergy/AdvReac Type Severity Reaction Status Date / Time aspirin Allergy Vomiting Verified 02/21/15 14:52 ED Review of Systems ROS: Stated complaint: OFF BALANCE/BODY CRAMPING ALL OVER Other details as noted in HPI Comment: All other systems reviewed and negative Constitutional: malaise Cardiovascular: denies: chest pain Gastrointestinal: denies: abdominal pain, nausea, vomiting Neurological: paresthesias. denies: headache, weakness, numbness, confusion, abnormal gait ED Past Medical Hx - Past Medical History Previous Medical History?: Yes Hx Hypertension: Yes Hx Diabetes: Yes Hx Liver Disease: No Hx Renal Disease: No Hx Sickle Cell Disease: No Hx Arthritis: Yes Hx Seizures: No Hx Asthma: No Hx COPD: No Additional medical history: fibromyalgia - Surgical History Hx Pacemaker: No Hx Internal Defibrillator: No Additional Surgical History: c sect - Social History Smoking Status: Never Smoker Substance Use Type: None - Medications Home Medications: Home Medications Medication Instructions Recorded Confirmed Last Taken Type Furosemide [Lasix TAB] 20 mg PO QDAY #30 tablet 02/21/15 Unknown Rx Famotidine [Pepcid] 20 mg PO BID #14 tablet 11/23/17 Unknown Rx Insulin Lispro [HumaLOG VIAL] 0 units SQ AC #1 vial 11/23/17 Unknown Rx Lispro Insulin [HumaLOG] 10 unit SUB-Q AC #1 vial 11/23/17 Unknown Rx Lispro Insulin [HumaLOG] 13 unit SUB-Q AC #1 vial 11/25/17 Unknown Rx Gabapentin 900 mg PO Q8HR 03/13/18 03/13/18 Unknown History Milnacipran HCl [Savella] 50 mg PO BID 03/13/18 03/13/18 Unknown History methOCARBAMOL [Robaxin TAB] 750 mg PO QHS 03/13/18 03/13/18 Unknown History Insulin Glargine [Lantus VIAL] 42 units SUB-Q QHS #1 vial 03/17/18 Unknown Rx Sulfamethoxazole/Trimethoprim 2 each PO BID 10 Days tablet 03/17/18 Unknown Rx [Bactrim DS TAB] oxyCODONE /ACETAMINOPHEN [Percocet 1 tab PO Q4H PRN #14 tablet 03/17/18 Unknown Rx 5/325 mg] Gabapentin 300 mg PO Q8HR #90 capsule 04/21/19 Unknown Rx Metformin HCl [metFORMIN] 1,000 mg PO BID #60 tablet 04/21/19 Unknown Rx oxyCODONE /ACETAMINOPHEN [Percocet 1 tab PO Q6HR PRN #10 tablet 04/21/19 Unknown Rx 5/325] Cyclobenzaprine [Flexeril 10 MG 10 mg PO QHS 14 Days #14 tablet 05/07/19 Unknown Rx TAB] ED Physical Exam - General Limitations: No Limitations General appearance: alert, in no apparent distress, other (sitting in chair, legs crossed at the ankle) - Head Head exam: Present: atraumatic, normocephalic - Eye Eye exam: Present: normal appearance - ENT ENT exam: Present: mucous membranes moist - Neck Neck exam: Present: normal inspection, full ROM - Respiratory Respiratory exam: Present: normal lung sounds bilaterally. Absent: respiratory distress, wheezes, rales, rhonchi - Cardiovascular Cardiovascular Exam: Present: regular rate, normal rhythm, normal heart sounds. Absent: systolic murmur, diastolic murmur, rubs, gallop - GI/Abdominal GI/Abdominal exam: Present: soft, normal bowel sounds. Absent: distended, tenderness, guarding, rebound - Extremities Exam Extremities exam: Present: normal inspection - Back Exam Back exam: Present: normal inspection - Neurological Exam Neurological exam: Present: alert, oriented X3, CN II-XII intact, normal gait. Absent: motor sensory deficit - Psychiatric Psychiatric exam: Present: normal affect, normal mood - Skin Skin exam: Present: warm, dry, intact, normal color. Absent: rash ED Course Vital Signs 05/07/19 11:08 Temperature 98.4 F Pulse Rate 94 H Respiratory 20 Rate Blood Pressure 152/87 O2 Sat by Pulse 98 Oximetry ED Medical Decision Making - Lab Data Result diagrams: 05/07/19 11:22 05/07/19 11:22 - Medical Decision Making Mrs. Philippe presents with burning pain in all 4 extremities. She is neurovascularly intact. CBC, BMP, CXR unremarkable. I provided 10 tabs Percocet last encounters. She has monthly prescription for Tylenol # 3 from several providers affiliated with several hospitals for the past year. She will need outpatient pain management and further evaluation. She is not convinced that her symptoms are explained by fibromyalgia. In lieu of opioid medication, I have prescribed cyclobenzaprine which should aid with sleep. I provided referral to outpatient medicine physician and neurologist. BG [id number] on chemistry Upon further hx, Mrs. Philippe informed me that she has bilateral carpal tunnel syndrome. 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 She is unable to wield a knife. Surgical inte rvention in the past has been recommended for her diagnosis. I also provided orthopedic surgery referral. Critical care attestation.: If time is entered above; I have spent that time in minutes in the direct care of this critically ill patient, excluding procedure time. ED Disposition Clinical Impression: Neuropathic pain, Peripheral neuropathic pain Disposition: DC-01 TO HOME OR SELFCARE Is pt being admited?: No Does the pt Need Aspirin: No Condition: Stable Instructions: Peripheral Neuropathy (ED), Paresthesia (ED) Prescriptions: Cyclobenzaprine [Flexeril 10 MG TAB] 10 mg PO QHS 14 Days #14 tablet Referrals: HAYLEE LUCIA MD [Staff Physician] - 3-5 Days NATY LARA MD [Staff Physician] - 3-5 Days KENNY SANTOS MD [Staff Physician] - 3-5 Days Forms: Work/School Release Form(ED)
--- NOTE | 2019-05-07 12:05 | XRay Report ---
CHEST 2 VIEWS INDICATION: diffuse body pain. COMPARISON: 03/13/2018 FINDINGS: Support devices: None. Heart: Within normal limits. Lungs/pleura: No acute air space or interstitial disease. No pneumothorax. Additional findings: None. IMPRESSION: 1. No acute findings. Signer Name: Zechariah Langley MD Signed: 05/07/2019 12:00 PM Workstation Name: [id number]
[2019-05-07 12:31] LABS: Alanine Aminotransferase 17 units/L (7-56); BUN/Creatinine Ratio 20; Blood Urea Nitrogen 10 mg/dL (7-17); Calcium 9.3 mg/dL (8.4-10.2); Hemolysis Index 10
== END 2019-05-07 13:07 | disposition home or self-care (01) ==
LOC: ED 11:01
DX: E11.40 Type 2 diabetes mellitus with diabetic neuropathy, unspecified (principal); I10 Essential (primary) hypertension; E11.9 Type 2 diabetes mellitus without complications; M19.90 Unspecified osteoarthritis, unspecified site; Z98.890 Other specified postprocedural states; Z79.899 Other long term (current) drug therapy; Z88.6 Allergy status to analgesic agent
CPT/HCPCS: 36415; 71046; 80053; 85025; J7512

== ENCOUNTER 2019-05-21 05:34 | Emergency (ER) | payer OTHER ==
[2019-05-21 05:49] VITALS: BP 134/82
[2019-05-21] MEDS ORDERED: HYDROcodone/ACETAMINOPHEN 5-325 MG TAB PO STA (08:27)
--- NOTE | 2019-05-21 10:01 | Emergency Department Report ---
ED Extremity Problem HPI - General Chief complaint: Extremity Injury, Lower Stated complaint: INNER R THIGH SWELLING/PAIN Time Seen by Provider: 05/21/19 08:26 Source: patient Mode of arrival: Ambulatory Limitations: No Limitations - History of Present Illness MD Complaint: extremity pain -: Gradual, week(s) (2) Location: right, lower extremity History of Same: No -: Yes myalgia Radiation: proximal Severity scale (0 -10): 10 Quality: stabbing, aching Consistency: constant Worsens with: weight bearing, walking, palpation Associated Symptoms: denies: chest pain, shortness of breath, fever, myalgias, arthralgias, rash - Related Data Home Medications Medication Instructions Recorded Confirmed Last Taken Gabapentin 900 mg PO Q8HR 03/13/18 03/13/18 Unknown Milnacipran HCl [Savella] 50 mg PO BID 03/13/18 03/13/18 Unknown methOCARBAMOL [Robaxin TAB] 750 mg PO QHS 03/13/18 03/13/18 Unknown Previous Rx's Medication Instructions Recorded Last Taken Type Furosemide [Lasix TAB] 20 mg PO QDAY #30 tablet 02/21/15 Unknown Rx Famotidine [Pepcid] 20 mg PO BID #14 tablet 11/23/17 Unknown Rx Insulin Lispro [HumaLOG VIAL] 0 units SQ AC #1 vial 11/23/17 Unknown Rx Lispro Insulin [HumaLOG] 10 unit SUB-Q AC #1 vial 11/23/17 Unknown Rx Lispro Insulin [HumaLOG] 13 unit SUB-Q AC #1 vial 11/25/17 Unknown Rx Insulin Glargine [Lantus VIAL] 42 units SUB-Q QHS #1 vial 03/17/18 Unknown Rx Sulfamethoxazole/Trimethoprim 2 each PO BID 10 Days tablet 03/17/18 Unknown Rx [Bactrim DS TAB] oxyCODONE /ACETAMINOPHEN [Percocet 1 tab PO Q4H PRN #14 tablet 03/17/18 Unknown Rx 5/325 mg] Gabapentin 300 mg PO Q8HR #90 capsule 04/21/19 Unknown Rx Metformin HCl [metFORMIN] 1,000 mg PO BID #60 tablet 04/21/19 Unknown Rx oxyCODONE /ACETAMINOPHEN [Percocet 1 tab PO Q6HR PRN #10 tablet 04/21/19 Unknown Rx 5/325] Cyclobenzaprine [Flexeril 10 MG 10 mg PO QHS 14 Days #14 tablet 05/07/19 Unknown Rx TAB] Ketorolac [Toradol] 10 mg PO Q6H PRN #20 tablet 05/21/19 Unknown Rx methOCARBAMOL [Robaxin TAB] 750 mg PO Q8H #20 tablet 05/21/19 Unknown Rx Allergies Allergy/AdvReac Type Severity Reaction Status Date / Time aspirin Allergy Vomiting Verified 02/21/15 14:52 ED Review of Systems ROS: Stated complaint: INNER R THIGH SWELLING/PAIN Other details as noted in HPI Comment: All other systems reviewed and negative ED Past Medical Hx - Past Medical History Previous Medical History?: Yes Hx Hypertension: Yes Hx Diabetes: Yes Hx Liver Disease: No Hx Renal Disease: No Hx Sickle Cell Disease: No Hx Arthritis: Yes Hx Seizures: No Hx Asthma: No Hx COPD: No Additional medical history: fibromyalgia - Surgical History Past Surgical History?: Yes Hx Pacemaker: No Hx Internal Defibrillator: No Additional Surgical History: c sect - Social History Smoking Status: Former Smoker Substance Use Type: None - Medications Home Medications: Home Medications Medication Instructions Recorded Confirmed Last Taken Type Furosemide [Lasix TAB] 20 mg PO QDAY #30 tablet 02/21/15 Unknown Rx Famotidine [Pepcid] 20 mg PO BID #14 tablet 11/23/17 Unknown Rx Insulin Lispro [HumaLOG VIAL] 0 units SQ AC #1 vial 11/23/17 Unknown Rx Lispro Insulin [HumaLOG] 10 unit SUB-Q AC #1 vial 11/23/17 Unknown Rx Lispro Insulin [HumaLOG] 13 unit SUB-Q AC #1 vial 11/25/17 Unknown Rx Gabapentin 900 mg PO Q8HR 03/13/18 03/13/18 Unknown History Milnacipran HCl [Savella] 50 mg PO BID 03/13/18 03/13/18 Unknown History methOCARBAMOL [Robaxin TAB] 750 mg PO QHS 03/13/18 03/13/18 Unknown History Insulin Glargine [Lantus VIAL] 42 units SUB-Q QHS #1 vial 03/17/18 Unknown Rx Sulfamethoxazole/Trimethoprim 2 each PO BID 10 Days tablet 03/17/18 Unknown Rx [Bactrim DS TAB] oxyCODONE /ACETAMINOPHEN [Percocet 1 tab PO Q4H PRN #14 tablet 03/17/18 Unknown Rx 5/325 mg] Gabapentin 300 mg PO Q8HR #90 capsule 04/21/19 Unknown Rx Metformin HCl [metFORMIN] 1,000 mg PO BID #60 tablet 04/21/19 Unknown Rx oxyCODONE /ACETAMINOPHEN [Percocet 1 tab PO Q6HR PRN #10 tablet 04/21/19 Unknown Rx 5/325] Cyclobenzaprine [Flexeril 10 MG 10 mg PO QHS 14 Days #14 tablet 05/07/19 Unknown Rx TAB] Ketorolac [Toradol] 10 mg PO Q6H PRN #20 tablet 05/21/19 Unknown Rx methOCARBAMOL [Robaxin TAB] 750 mg PO Q8H #20 tablet 05/21/19 Unknown Rx ED Physical Exam - General Limitations: No Limitations General appearance: alert, in no apparent distress - Head Head exam: Present: atraumatic, normocephalic - Eye Eye exam: Present: normal appearance, PERRL, EOMI Pupils: Present: normal accommodation - ENT ENT exam: Present: mucous membranes moist - Neck Neck exam: Present: normal inspection - Respiratory Respiratory exam: Present: normal lung sounds bilaterally. Absent: respiratory distress - Cardiovascular Cardiovascular Exam: Present: regular rate, normal rhythm. Absent: systolic murmur, diastolic murmur, rubs, gallop - GI/Abdominal GI/Abdominal exam: Present: soft, normal bowel sounds - Extremities Exam Extremities exam: Present: normal inspection, normal capillary refill. Absent: calf tenderness (no Homans sign, no cords time. No induration or cellulitis noted. No swelling is appreciated. Full range of motion of extremity with flexion and extension. There is pain with apposed AD duction.With apposed hip flexion. No inguinal lymphadenopathy. But there is tenderness to the greatest simvastatin groin region. No tenderness to the hip point.) - Back Exam Back exam: Present: normal inspection. Absent: CVA tenderness (R), CVA tenderness (L) - Neurological Exam Neurological exam: Present: alert, oriented X3, CN II-XII intact - Psychiatric Psychiatric exam: Present: normal affect, normal mood. Absent: anxious, flat affect - Skin Skin exam: Present: warm, dry, intact, normal color. Absent: rash, cyanosis, diaphoretic ED Course Vital Signs 05/21/19 05:44 Temperature 98.2 F Pulse Rate 108 H Respiratory 20 Rate Blood Pressure 134/82 O2 Sat by Pulse 98 Oximetry ED Medical Decision Making - Medical Decision Making Obese 48-year-old -Greek female with right upper thigh pain has been present for the last 2 weeks evaluated by primary care doctor 2 with plans on following up with a musculoskeletal specialist for further evaluation and treatment options. Currently she has no emergent condition present there is no swelling no evidence of any infectious process and pain is really produced with range of motion. There is no suggestion of a DVT at present. The patient does feel that this may be muscular related due to some events that may maybe have occurred a couple weeks ago when this started. Pain was improved with the [place] she refused prednisone due to her history of diabetes. We'll discharge her with anti-inflammatories and muscle relaxers. She does have a sensitivity to aspirin which is vomiting but no anaphylaxis or rashes. Critical care attestation.: If time is entered above; I have spent that time in minutes in the direct care of this critically ill patient, excluding procedure time. ED Disposition Clinical Impression: Musculoskeletal pain Disposition: DC-01 TO HOME OR SELFCARE Is pt being admited?: No Does the pt Need Aspirin: No Condition: Stable Instructions: Musculoskeletal Pain (ED) Prescriptions: methOCARBAMOL [Robaxin TAB] 750 mg PO Q8H #20 tablet Ketorolac [Toradol] 10 mg PO Q6H PRN #20 tablet PRN Reason: Pain Referrals: PRIMARY CARE,MD [Primary Care Provider] - 3-5 Days (Please follow up to primary care provider for further evaluation and treatment options. Please keep the appointment that was scheduled by your primary care provider for further evaluation of this issue as well)
[2019-05-21] MEDS ORDERED: predniSONE 50 MG TAB PO ONE (10:38)
== END 2019-05-21 10:46 | disposition home or self-care (01) ==
LOC: ED 05:34
DX: M79.651 Pain in right thigh (principal); I10 Essential (primary) hypertension; E11.9 Type 2 diabetes mellitus without complications; M19.90 Unspecified osteoarthritis, unspecified site; Z87.891 Personal history of nicotine dependence; Z79.899 Other long term (current) drug therapy; Z88.6 Allergy status to analgesic agent
CPT/HCPCS: J7512

== ENCOUNTER 2019-08-22 16:31 | Emergency (ER) | payer OTHER ==
--- NOTE | 2019-08-22 16:47 | Emergency Department Report ---
Blank Doc - Documentation Documentation: 48-year-old female that presents with SOB, tachycardia, cough and body aches. This initial assessment/diagnostic orders/clinical plan/treatment(s) is/are subject to change based on patient's health status, clinical progression and re- assessment by fellow clinical providers in the ED. Further treatment and workup at subsequent clinical providers discretion. Patient/guardians urged not to elope from the ED as their condition may be serious if not clinically assessed and managed. Initial orders include: 1- Patient sent to [facility] for further evaluation and treatment 2- CXR
[2019-08-22 16:48] VITALS: BP 136/86
[2019-08-22] MEDS ORDERED: ACETAMINOPHEN 325 MG TAB PO ONE (16:48)
[2019-08-22] MEDS ORDERED: ACETAMINOPHEN 325 MG TAB ONE (16:49)
--- NOTE | 2019-08-22 17:28 | XRay Report ---
CHEST 2 VIEWS INDICATION / CLINICAL INFORMATION: MAIN: cough; Pt. c/o earache, "cold symptoms." x 2 days Pt. states she is having body pain from fibro myalgia and arthritis.. COMPARISON: Chest x-ray 05/07/2019 FINDINGS: SUPPORT DEVICES: None. HEART / MEDIASTINUM: No significant abnormality. LUNGS / PLEURA: No significant pulmonary or pleural abnormality. No pneumothorax. ADDITIONAL FINDINGS: No significant additional findings. IMPRESSION: 1. No acute findings. Signer Name: Rico Dolan MD Signed: 08/22/2019 5:23 PM Workstation Name: [id number]
[2019-08-22 17:31] LABS: BUN/Creatinine Ratio 17; Blood Urea Nitrogen 10 mg/dL (7-17); Calcium 9.3 mg/dL (8.4-10.2); Hemolysis Index 14
[2019-08-22 17:37] LABS: Basophils % (Auto) 0.4 % (0.0-1.8); Eosinophils % (Auto) 0.4 % (0.0-4.3); Hematocrit 43.4 % (30.3-42.9); Hemoglobin 14.6 gm/dl (10.1-14.3); Lymphocytes # (Auto) 2.7 K/mm3 (1.2-5.4); Lymphocytes % (Auto) 29.5 % (13.4-35.0); Mean Corpuscular HGB Conc 34 % (30-34); Mean Corpuscular Volume 89 fl (79-97); Monocytes # (Auto) 0.7 K/mm3 (0.0-0.8); Monocytes % (Auto) 8.2 % (0.0-7.3); Platelet Count 360 K/mm3 (140-440); Red Blood Count 4.87 M/mm3 (3.65-5.03); Red Cell Distribution Width 13.2 % (13.2-15.2)
[2019-08-22] MEDS ORDERED: SODIUM CHLORIDE 0.9% 1000 ML 1,000 ML IV ONE (23:07)
--- NOTE | 2019-08-23 00:17 | Emergency Department Report ---
ED General Adult HPI - General Chief complaint: Upper Respiratory Infection Stated complaint: COUGH, ALLERGIC REACTION, Time Seen by Provider: 08/22/19 16:47 Source: patient Mode of arrival: Ambulatory Limitations: No Limitations - History of Present Illness Initial comments: Ms. Philippe is a 48-year-old -[place] female with a history of fibromyalg ia hypertension diabetes type 2 and arthralgia who presents for cold symptoms , sore throat generalized malaise cough is been no fever,chills, no nausea vomiting. Cough is productive clear. Symptoms are exacerbated by activity. Symptoms are relieved by nothing tried. Patient states she believes her sugar is elevated today, patient denies chest pain, no shortness of breath, no nausea vomiting, no diaphoresis, no dizziness, no lightheadedness. Onset/Timin -: days(s) Location: head, chest, upper extremity, lower extremity Severity scale (0 -10): 5 Quality: aching Consistency: constant Improves with: none Worsens with: other (activity ) Associated Symptoms: cough, malaise. denies: headaches, nausea/vomiting, shortness of breath Treatments Prior to Arrival: none - Related Data Home Medications Medication Instructions Recorded Confirmed Last Taken Gabapentin 900 mg PO Q8HR 03/13/18 03/13/18 Unknown Milnacipran HCl [Savella] 50 mg PO BID 03/13/18 03/13/18 Unknown methOCARBAMOL [Robaxin TAB] 750 mg PO QHS 03/13/18 03/13/18 Unknown Previous Rx's Medication Instructions Recorded Last Taken Type Furosemide [Lasix TAB] 20 mg PO QDAY #30 tablet 02/21/15 Unknown Rx Famotidine [Pepcid] 20 mg PO BID #14 tablet 11/23/17 Unknown Rx Insulin Lispro [HumaLOG VIAL] 0 units SQ AC #1 vial 11/23/17 Unknown Rx Lispro Insulin [HumaLOG] 10 unit SUB-Q AC #1 vial 11/23/17 Unknown Rx Lispro Insulin [HumaLOG] 13 unit SUB-Q AC #1 vial 11/25/17 Unknown Rx Insulin Glargine [Lantus VIAL] 42 units SUB-Q QHS #1 vial 03/17/18 Unknown Rx Sulfamethoxazole/Trimethoprim 2 each PO BID 10 Days tablet 03/17/18 Unknown Rx [Bactrim DS TAB] oxyCODONE /ACETAMINOPHEN [Percocet 1 tab PO Q4H PRN #14 tablet 03/17/18 Unknown Rx 5/325 mg] Gabapentin 300 mg PO Q8HR #90 capsule 04/21/19 Unknown Rx Metformin HCl [metFORMIN] 1,000 mg PO BID #60 tablet 04/21/19 Unknown Rx oxyCODONE /ACETAMINOPHEN [Percocet 1 tab PO Q6HR PRN #10 tablet 04/21/19 Unknown Rx 5/325] Cyclobenzaprine [Flexeril 10 MG 10 mg PO QHS 14 Days #14 tablet 05/07/19 Unknown Rx TAB] Ketorolac [Toradol] 10 mg PO Q6H PRN #20 tablet 05/21/19 Unknown Rx methOCARBAMOL [Robaxin TAB] 750 mg PO Q8H #20 tablet 05/21/19 Unknown Rx Acetaminophen [Acetaminophen TAB] 1,000 mg PO Q6HR PRN #30 tablet 08/23/19 Unknown Rx Famotidine [Pepcid] 20 mg PO BID 7 Days #14 tablet 08/23/19 Unknown Rx diphenhydrAMINE [Benadryl CAP] 25 mg PO Q8HR PRN #30 capsule 08/23/19 Unknown Rx predniSONE [Deltasone] 40 mg PO QDAY 5 Days #10 tablet 08/23/19 Unknown Rx Allergies Allergy/AdvReac Type Severity Reaction Status Date / Time aspirin Allergy Vomiting Verified 02/21/15 14:52 ED Review of Systems ROS: Stated complaint: COUGH, ALLERGIC REACTION, Other details as noted in HPI Constitutional: malaise. denies: chills, fever Eyes: denies: eye pain, eye discharge, vision change ENT: ear pain, throat pain, congestion Respiratory: denies: cough, orthopnea, shortness of breath, SOB with exertion, SOB at rest, wheezing Cardiovascular: denies: chest pain, palpitations Endocrine: no symptoms reported Gastrointestinal: denies: abdominal pain, nausea, vomiting, diarrhea, constipation, hematemesis, melena Genitourinary: as per HPI, urgency, dysuria, frequency. denies: hematuria, discharge Musculoskeletal: back pain. denies: joint swelling, arthralgia Skin: denies: rash, lesions Neurological: denies: headache, weakness, paresthesias Psychiatric: denies: anxiety, depression Hematological/Lymphatic: denies: easy bleeding, easy bruising ED Past Medical Hx - Past Medical History Previous Medical History?: Yes Hx Hypertension: Yes Hx Diabetes: Yes Hx Liver Disease: No Hx Renal Disease: No Hx Sickle Cell Disease: No Hx Arthritis: Yes Hx Seizures: No Hx Asthma: No Hx COPD: No Additional medical history: fibromyalgia - Surgical History Past Surgical History?: Yes Hx Pacemaker: No Hx Internal Defibrillator: No Additional Surgical History: c sect - Social History Smoking Status: Never Smoker Substance Use Type: None - Medications Home Medications: Home Medications Medication Instructions Recorded Confirmed Last Taken Type Furosemide [Lasix TAB] 20 mg PO QDAY #30 tablet 02/21/15 Unknown Rx Famotidine [Pepcid] 20 mg PO BID #14 tablet 11/23/17 Unknown Rx Insulin Lispro [HumaLOG VIAL] 0 units SQ AC #1 vial 11/23/17 Unknown Rx Lispro Insulin [HumaLOG] 10 unit SUB-Q AC #1 vial 11/23/17 Unknown Rx Lispro Insulin [HumaLOG] 13 unit SUB-Q AC #1 vial 11/25/17 Unknown Rx Gabapentin 900 mg PO Q8HR 03/13/18 03/13/18 Unknown History Milnacipran HCl [Savella] 50 mg PO BID 03/13/18 03/13/18 Unknown History methOCARBAMOL [Robaxin TAB] 750 mg PO QHS 03/13/18 03/13/18 Unknown History Insulin Glargine [Lantus VIAL] 42 units SUB-Q QHS #1 vial 03/17/18 Unknown Rx Sulfamethoxazole/Trimethoprim 2 each PO BID 10 Days tablet 03/17/18 Unknown Rx [Bactrim DS TAB] oxyCODONE /ACETAMINOPHEN [Percocet 1 tab PO Q4H PRN #14 tablet 03/17/18 Unknown Rx 5/325 mg] Gabapentin 300 mg PO Q8HR #90 capsule 04/21/19 Unknown Rx Metformin HCl [metFORMIN] 1,000 mg PO BID #60 tablet 04/21/19 Unknown Rx oxyCODONE /ACETAMINOPHEN [Percocet 1 tab PO Q6HR PRN #10 tablet 04/21/19 Unknown Rx 5/325] Cyclobenzaprine [Flexeril 10 MG 10 mg PO QHS 14 Days #14 tablet 05/07/19 Unknown Rx TAB] Ketorolac [Toradol] 10 mg PO Q6H PRN #20 tablet 05/21/19 Unknown Rx methOCARBAMOL [Robaxin TAB] 750 mg PO Q8H #20 tablet 05/21/19 Unknown Rx Acetaminophen [Acetaminophen TAB] 1,000 mg PO Q6HR PRN #30 tablet 08/23/19 Unknown Rx Famotidine [Pepcid] 20 mg PO BID 7 Days #14 tablet 08/23/19 Unknown Rx diphenhydrAMINE [Benadryl CAP] 25 mg PO Q8HR PRN #30 capsule 08/23/19 Unknown Rx predniSONE [Deltasone] 40 mg PO QDAY 5 Days #10 tablet 08/23/19 Unknown Rx ED Physical Exam - General Limitations: No Limitations General appearance: alert, in no apparent distress - Head Head exam: Present: atraumatic, normocephalic - Eye Eye exam: Present: normal appearance, PERRL, EOMI Pupils: Present: normal accommodation - ENT ENT exam: Present: mucous membranes moist - Neck Neck exam: Present: normal inspection, tenderness, full ROM. Absent: lymphadenopathy - Respiratory Respiratory exam: Present: normal lung sounds bilaterally. Absent: wheezes, rales, rhonchi, stridor, chest wall tenderness - Cardiovascular Cardiovascular Exam: Present: regular rate, normal rhythm, normal heart sounds - GI/Abdominal GI/Abdominal exam: Present: soft, normal bowel sounds. Absent: distended, tenderness, bruit, hernia - Rectal Rectal exam: Present: deferred - Extremities Exam Extremities exam: Present: normal inspection, full ROM, normal capillary refill. Absent: tenderness - Back Exam Back exam: Present: normal inspection, full ROM. Absent: tenderness, CVA tenderness (R), CVA tenderness (L), muscle spasm, paraspinal tenderness - Neurological Exam Neurological exam: Present: alert, oriented X3, CN II-XII intact, normal gait, reflexes normal. Absent: motor sensory deficit - Psychiatric Psychiatric exam: Present: normal affect, normal mood - Skin Skin exam: Present: warm, dry, intact, normal color. Absent: rash ED Course Vital Signs 08/22/19 08/22/19 08/22/19 16:46 16:53 17:53 Temperature 98.1 F Pulse Rate 112 H Respiratory 20 20 16 Rate Blood Pressure 136/86 O2 Sat by Pulse 98 Oximetry ED Medical Decision Making - Lab Data Result diagrams: 08/22/19 16:59 08/22/19 16:59 Lab Results 08/22/19 08/22/19 08/23/19 Range/Units 16:59 16:59 00:34 WBC 9.1 (4.5-11.0) K/mm3 RBC 4.87 (3.65-5.03) M/mm3 Hgb 14.6 H (10.1-14.3) gm/dl Hct 43.4 H (30.3-42.9) % MCV 89 (79-97) fl MCH 30 (28-32) pg MCHC 34 (30-34) % RDW 13.2 (13.2-15.2) % Plt Count 360 (140-440) K/mm3 Lymph % (Auto) 29.5 (13.4-35.0) % [place] % (Auto) 8.2 H (0.0-7.3) % Eos % (Auto) 0.4 (0.0-4.3) % Baso % (Auto) 0.4 (0.0-1.8) % Lymph # 2.7 (1.2-5.4) K/mm3 Mercer # 0.7 (0.0-0.8) K/mm3 Eos # 0.0 (0.0-0.4) K/mm3 Baso # 0.0 (0.0-0.1) K/mm3 Seg Neutrophils % 61.5 (40.0-70.0) % Seg Neutrophils # 5.6 (1.8-7.7) K/mm3 Sodium 134 L (137-145) mmol/L Potassium 4.1 (3.6-5.0) mmol/L Chloride 95.8 L (98-107) mmol/L Carbon Dioxide 23 (22-30) mmol/L Anion Gap 19 mmol/L BUN 10 (7-17) mg/dL Creatinine 0.6 L (0.7-1.2) mg/dL Estimated GFR > 60 ml/min BUN/Creatinine Ratio 17 % Glucose 320 H (65-100) mg/dL Calcium 9.3 (8.4-10.2) mg/dL Urine Color Yellow (Yellow) Urine Turbidity Clear (Clear) Urine pH 6.0 (5.0-7.0) Ur Specific [place] 1.024 (1.003-1.030) Urine Protein <15 mg/dl (Negative) mg/dL Urine Glucose (UA) Neg (Negative) mg/dL Urine Ketones Neg (Negative) mg/dL Urine Blood Neg (Negative) Urine Nitrite Neg (Negative) Urine Bilirubin Neg (Negative) Urine Urobilinogen 4.0 (<2.0) mg/dL Ur Leukocyte Esterase Tr (Negative) Urine WBC (Auto) < 1.0 (0.0-6.0) /HPF Urine RBC (Auto) 3.0 (0.0-6.0) /HPF U Epithel Cells (Auto) 12.0 (0-13.0) /HPF Urine Bacteria (Auto) 1+ (Negative) /HPF Urine Mucus Few /HPF - Radiology Data Radiology results: report reviewed, image reviewed Findings Reporting MD: Rico Dolan Dictation Time: August 22, 2019 16:23 Radio Division Lieutenant: Not available Elementary Teacher Date: CHEST 2 VIEWS INDICATION / CLINICAL INFORMATION: MAIN: cough; Pt. c/o earache, "cold symptoms." x 2 days Pt. states she is having body pain from fibromyalgia and arthritis.. COMPARISON: Chest x-ray 05/07/2019 FINDINGS: SUPPORT DEVICES: None. HEART / MEDIASTINUM: No significant abnormality. LUNGS / PLEURA: No significant pulmonary or pleural abnormality. No pneumothorax. ADDITIONAL FINDINGS: No significant additional findings. IMPRESSION: 1. No acute findings. Signer Name: Rico Dolan MD Signed: 08/22/2019 4:23 PM Workstation Name: [id number] - Medical Decision Making Chest x-ray is normal no infiltrates no opacities. Labs are normal. Repeat Accu-Chek 191, symptoms improved after medications given in ED, plan DC to home with prescription for Benadryl Pepcid prednisone. Critical care attestation.: If time is entered above; I have spent that time in minutes in the direct care of this critically ill patient, excluding procedure time. ED Disposition Clinical Impression: Allergic rhinitis Qualifiers: Allergic rhinitis trigger: other Allergic rhinitis seasonality: unspecified Qualified Code(s): J30.89 - Other allergic rhinitis Acute bronchitis Qualifiers: Bronchitis organism: unspecified organism Qualified Code(s): J20.9 - Acute bronchitis, unspecified Disposition: DC-01 TO HOME OR SELFCARE Is pt being admited?: No Does the pt Need Aspirin: No Condition: Stable Instructions: Acute Bronchitis (ED) Prescriptions: Acetaminophen [Acetaminophen TAB] 1,000 mg PO Q6HR PRN #30 tablet PRN Reason: pain diphenhydrAMINE [Benadryl CAP] 25 mg PO Q8HR PRN #30 capsule PRN Reason: allergies predniSONE [Deltasone] 40 mg PO QDAY 5 Days #10 tablet Famotidine [Pepcid] 20 mg PO BID 7 Days #14 tablet Referrals: [facility] [Other] - 3-5 Days Forms: Work/School Release Form(ED) Time of Disposition: 02:25
[2019-08-23] MEDS ORDERED: MORPHINE 4 MG/1 ML INJ IV ONE (00:40)
[2019-08-23] MEDS ORDERED: ONDANSETRON 4 MG/2 ML INJ IV ONE (00:40)
[2019-08-23 01:09] LABS: Bacteria,Urine 1+ /HPF (Negative); Bilirubin,Urine NEG (Negative); Blood,Urine NEG (Negative); Color,Urine Yellow (Yellow); Mucus,Urine FEW /HPF; Protein,Urine <15 mg/dL mg/dL (Negative); WBC,Urine < 1.0 /HPF (0.0-6.0)
[2019-08-23] MEDS ORDERED: ALBUTEROL 2.5 MG/3 ML NEBU IH ONE (02:24)
== END 2019-08-23 02:50 | disposition home or self-care (01) ==
LOC: ED 16:31
DX: J20.9 Acute bronchitis, unspecified (principal); J30.9 Allergic rhinitis, unspecified; I10 Essential (primary) hypertension; E11.9 Type 2 diabetes mellitus without complications; M19.90 Unspecified osteoarthritis, unspecified site; Z88.6 Allergy status to analgesic agent; Z79.899 Other long term (current) drug therapy; Z98.890 Other specified postprocedural states; Z79.4 Long term (current) use of insulin
CPT/HCPCS: 36415; 71046; 80048; 81001; 82962; 85025; 94640; 96374; 96375; 99284; J2270; J2405; J7030

== ENCOUNTER 2020-07-07 16:40 | Emergency (ER) | payer OTHER ==
--- NOTE | 2020-07-07 17:10 | Event Note ---
ED Screening Note ED Screening Note: pt presents for n/v/d states she feels dehydrated she wasnt sure if she had been giving her self too much insulin no cough or fever no known sick contacts no recent travel BG 190s This initial assessment/diagnostic orders/clinical plan/treatment(s) is/are subject to change based on patients health status, clinical progression and re- assessment by fellow clinical providers in the ED. Further treatment and workup at subsequent clinical providers discretion. Patient/guardian urged not to elope from the ED as their condition may be serious if not clinically assessed and managed. Initial orders include: labs, UA
[2020-07-07 17:35] LABS: Basophils % (Auto) 0.3 % (0.0-1.8); Eosinophils % (Auto) 0.2 % (0.0-4.3); Hematocrit 47.8 % (30.3-42.9); Hemoglobin 16.9 gm/dl (10.1-14.3); Lymphocytes # (Auto) 2.8 K/mm3 (1.2-5.4); Lymphocytes % (Auto) 27.3 % (13.4-35.0); Mean Corpuscular HGB Conc 35 % (30-34); Mean Corpuscular Volume 91 fl (79-97); Monocytes # (Auto) 0.6 K/mm3 (0.0-0.8); Monocytes % (Auto) 6.1 % (0.0-7.3); Platelet Count 369 K/mm3 (140-440); Red Blood Count 5.25 M/mm3 (3.65-5.03); Red Cell Distribution Width 13.7 % (13.2-15.2)
[2020-07-07 17:41] LABS: Alanine Aminotransferase 80 units/L (7-56); Albumin 4.1 g/dL (3.9-5); BUN/Creatinine Ratio 18; Blood Urea Nitrogen 9 mg/dL (7-17); Calcium 9.5 mg/dL (8.4-10.2); Hemolysis Index 2
[2020-07-07 18:01] LABS: Bacteria,Urine 4+ /HPF (Negative); Bilirubin,Urine NEG (Negative); Blood,Urine NEG (Negative); Color,Urine Yellow (Yellow); Mucus,Urine 1+ /HPF; Urobilinogen,Urine < 2.0 mg/dL (<2.0)
[2020-07-07] MEDS ORDERED: SODIUM CHLORIDE 0.9% 1000 ML 1,000 ML IV ONE (19:24)
[2020-07-07] MEDS ORDERED: ONDANSETRON 4 MG/2 ML INJ IV ONE (19:33)
--- NOTE | 2020-07-07 19:46 | Emergency Department Report ---
ED General Adult HPI - General Chief complaint: Weakness Stated complaint: OVER MEDICATED Time Seen by Provider: 07/07/20 16:52 Source: patient Mode of arrival: Ambulatory Limitations: No Limitations - History of Present Illness Initial comments: Patient is 49 years old female with history of diabetes. Patient presented to the ER complaining of generalized weakness, nausea, vomiting and diarrhea. Patient is also complaining of abdominal pain for the last 5 days. Patient denied any chest pain, shortness of breath, cough, fever or chills. - Related Data Home Medications Medication Instructions Recorded Confirmed Last Taken Gabapentin 900 mg PO Q8HR 03/13/18 03/13/18 Unknown Milnacipran HCl [Savella] 50 mg PO BID 03/13/18 03/13/18 Unknown methOCARBAMOL [Robaxin TAB] 750 mg PO QHS 03/13/18 03/13/18 Unknown Previous Rx's Medication Instructions Recorded Last Taken Type Furosemide [Lasix TAB] 20 mg PO QDAY #30 tablet 02/21/15 Unknown Rx Famotidine [Pepcid] 20 mg PO BID #14 tablet 11/23/17 Unknown Rx Insulin Lispro [HumaLOG VIAL] 0 units SQ AC #1 vial 11/23/17 Unknown Rx Lispro Insulin [HumaLOG] 10 unit SUB-Q AC #1 vial 11/23/17 Unknown Rx Lispro Insulin [HumaLOG] 13 unit SUB-Q AC #1 vial 11/25/17 Unknown Rx Insulin Glargine [Lantus VIAL] 42 units SUB-Q QHS #1 vial 03/17/18 Unknown Rx Sulfamethoxazole/Trimethoprim 2 each PO BID 10 Days tablet 03/17/18 Unknown Rx [Bactrim DS TAB] oxyCODONE /ACETAMINOPHEN [Percocet 1 tab PO Q4H PRN #14 tablet 03/17/18 Unknown Rx 5/325 mg] Gabapentin 300 mg PO Q8HR #90 capsule 04/21/19 Unknown Rx Metformin HCl [metFORMIN] 1,000 mg PO BID #60 tablet 04/21/19 Unknown Rx oxyCODONE /ACETAMINOPHEN [Percocet 1 tab PO Q6HR PRN #10 tablet 04/21/19 Unknown Rx 5/325] Cyclobenzaprine [Flexeril 10 MG 10 mg PO QHS 14 Days #14 tablet 05/07/19 Unknown Rx TAB] Ketorolac [Toradol] 10 mg PO Q6H PRN #20 tablet 05/21/19 Unknown Rx methOCARBAMOL [Robaxin TAB] 750 mg PO Q8H #20 tablet 05/21/19 Unknown Rx ALBUTEROL NEB's [Proventil 0.083% 2.5 mg IH Q6H PRN #25 vial 08/23/19 Unknown Rx NEBS] Acetaminophen [Acetaminophen TAB] 1,000 mg PO Q6HR PRN #30 tablet 08/23/19 Unknown Rx Famotidine [Pepcid] 20 mg PO BID 7 Days #14 tablet 08/23/19 Unknown Rx Nebulizer [Aeroneb Go Nebulizer] 1 each MC PRN PRN #1 each 08/23/19 Unknown Rx diphenhydrAMINE [Benadryl CAP] 25 mg PO Q8HR PRN #30 capsule 08/23/19 Unknown Rx predniSONE [Deltasone] 40 mg PO QDAY 5 Days #10 tablet 08/23/19 Unknown Rx Allergies Allergy/AdvReac Type Severity Reaction Status Date / Time aspirin Allergy Vomiting Verified 02/21/15 14:52 ED Review of Systems ROS: Stated complaint: OVER MEDICATED Other details as noted in HPI Comment: All other systems reviewed and negative Constitutional: denies: chills, fever Respiratory: denies: cough, orthopnea, shortness of breath, SOB with exertion, SOB at rest, wheezing Cardiovascular: denies: chest pain, palpitations Gastrointestinal: abdominal pain, nausea, vomiting, diarrhea Musculoskeletal: denies: back pain Neurological: weakness. denies: headache, numbness, paresthesias, confusion, abnormal gait ED Past Medical Hx - Past Medical History Previous Medical History?: Yes Hx Hypertension: Yes Hx Diabetes: Yes Hx Liver Disease: No Hx Renal Disease: No Hx Sickle Cell Disease: No Hx Arthritis: Yes Hx Seizures: No Hx Asthma: No Hx COPD: No Additional medical history: fibromyalgia - Surgical History Past Surgical History?: Yes Hx Pacemaker: No Hx Internal Defibrillator: No Additional Surgical History: c sect - Social History Smoking Status: Never Smoker Substance Use Type: None - Medications Home Medications: Home Medications Medication Instructions Recorded Confirmed Last Taken Type Furosemide [Lasix TAB] 20 mg PO QDAY #30 tablet 02/21/15 Unknown Rx Famotidine [Pepcid] 20 mg PO BID #14 tablet 11/23/17 Unknown Rx Insulin Lispro [HumaLOG VIAL] 0 units SQ AC #1 vial 11/23/17 Unknown Rx Lispro Insulin [HumaLOG] 10 unit SUB-Q AC #1 vial 11/23/17 Unknown Rx Lispro Insulin [HumaLOG] 13 unit SUB-Q AC #1 vial 11/25/17 Unknown Rx Gabapentin 900 mg PO Q8HR 03/13/18 03/13/18 Unknown History Milnacipran HCl [Savella] 50 mg PO BID 03/13/18 03/13/18 Unknown History methOCARBAMOL [Robaxin TAB] 750 mg PO QHS 03/13/18 03/13/18 Unknown History Insulin Glargine [Lantus VIAL] 42 units SUB-Q QHS #1 vial 03/17/18 Unknown Rx Sulfamethoxazole/Trimethoprim 2 each PO BID 10 Days tablet 03/17/18 Unknown Rx [Bactrim DS TAB] oxyCODONE /ACETAMINOPHEN [Percocet 1 tab PO Q4H PRN #14 tablet 03/17/18 Unknown Rx 5/325 mg] Gabapentin 300 mg PO Q8HR #90 capsule 04/21/19 Unknown Rx Metformin HCl [metFORMIN] 1,000 mg PO BID #60 tablet 04/21/19 Unknown Rx oxyCODONE /ACETAMINOPHEN [Percocet 1 tab PO Q6HR PRN #10 tablet 04/21/19 Unknown Rx 5/325] Cyclobenzaprine [Flexeril 10 MG 10 mg PO QHS 14 Days #14 tablet 05/07/19 Unknown Rx TAB] Ketorolac [Toradol] 10 mg PO Q6H PRN #20 tablet 05/21/19 Unknown Rx methOCARBAMOL [Robaxin TAB] 750 mg PO Q8H #20 tablet 05/21/19 Unknown Rx ALBUTEROL NEB's [Proventil 0.083% 2.5 mg IH Q6H PRN #25 vial 08/23/19 Unknown Rx NEBS] Acetaminophen [Acetaminophen TAB] 1,000 mg PO Q6HR PRN #30 tablet 08/23/19 Unknown Rx Famotidine [Pepcid] 20 mg PO BID 7 Days #14 tablet 08/23/19 Unknown Rx Nebulizer [Aeroneb Go Nebulizer] 1 each MC PRN PRN #1 each 08/23/19 Unknown Rx diphenhydrAMINE [Benadryl CAP] 25 mg PO Q8HR PRN #30 capsule 08/23/19 Unknown Rx predniSONE [Deltasone] 40 mg PO QDAY 5 Days #10 tablet 08/23/19 Unknown Rx ED Physical Exam - General Limitations: No Limitations General appearance: alert, in no apparent distress - Head Head exam: Present: atraumatic, normocephalic, normal inspection - ENT ENT exam: Present: mucous membranes dry - Neck Neck exam: Present: normal inspection, full ROM. Absent: tenderness, meningismus - Respiratory Respiratory exam: Present: normal lung sounds bilaterally - Cardiovascular Cardiovascular Exam: Present: regular rate, normal rhythm, normal heart sounds - GI/Abdominal GI/Abdominal exam: Present: soft, normal bowel sounds. Absent: distended, tenderness, guarding, rebound, rigid, organomegaly, mass, bruit, pulsatile mass, hernia - Extremities Exam Extremities exam: Present: normal inspection, full ROM, normal capillary refill. Absent: pedal edema, calf tenderness - Back Exam Back exam: Present: normal inspection, full ROM. Absent: CVA tenderness (R), CVA tenderness (L) - Neurological Exam Neurological exam: Present: alert, oriented X3, CN II-XII intact - Psychiatric Psychiatric exam: Present: normal mood - Skin Skin exam: Present: warm, intact, normal color ED Course Vital Signs 07/07/20 07/07/20 16:44 16:46 Temperature 98.0 F 98 F Pulse Rate 112 H 117 H Respiratory 20 20 Rate Blood Pressure 136/94 136/94 O2 Sat by Pulse 100 100 Oximetry ED Medical Decision Making - Lab Data Result diagrams: 07/07/20 17:05 07/07/20 17:05 - Radiology Data Radiology results: report reviewed - Medical Decision Making Patient is 49 years old female with history of diabetes. Patient presented to the ER complaining of generalized weakness, nausea, vomiting and diarrhea. Patient is also complaining of abdominal pain for the last 5 days. Patient denied any chest pain, shortness of breath, cough, fever or chills. Patient received normal saline and Zofran. Patient stated that she is feeling much better. No vomiting observed in the ER. Chest x-ray is unremarkable. Labs reviewed and is negative for acute finding. CT abdomen and pelvis showed possible subacute hemangioma. Patient denied any history of recent injury. Patient informed about the CT finding and advised to follow-up with her primary doctor in the next 2 to 3 days and to return to the ER if she develop any new symptoms. Critical care attestation.: If time is entered above; I have spent that time in minutes in the direct care of this critically ill patient, excluding procedure time. ED Disposition Clinical Impression: Abdominal pain, Generalized weakness, Nausea vomiting and diarrhea Disposition: - TO HOME OR SELFCARE Is pt being admited?: No Condition: Stable Instructions: Abdominal Pain, Adult, Nausea and Vomiting, Adult Referrals: PRIMARY CARE, [Referring] - 3-5 Days
--- NOTE | 2020-07-07 20:11 | XRay Report ---
CHEST 1 VIEW INDICATION / CLINICAL INFORMATION: WEAKNESS. FINDINGS: SUPPORT DEVICES: None. HEART / MEDIASTINUM: No significant abnormality. LUNGS / PLEURA: No significant pulmonary or pleural abnormality. No pneumothorax. ADDITIONAL FINDINGS: No significant additional findings. IMPRESSION: 1. No acute findings. Signer Name: Santhosh Crane MD Signed: 07/07/2020 8:07 PM Workstation Name: [id number]
[2020-07-07] MEDS ORDERED: MORPHINE 4 MG/1 ML INJ ONE (20:44)
[2020-07-07] MEDS ORDERED: MORPHINE 4 MG/1 ML INJ IV ONE (20:47)
--- NOTE | 2020-07-07 21:18 | Cat Scan Report ---
CT ABDOMEN AND PELVIS WITH IV CONTRAST INDICATION: abdominal pain. COMPARISON: 03/13/2018 TECHNIQUE: Axial CT images were obtained through the abdomen and pelvis after 100 mL IV contrast. All CT scans a t this location are performed using CT dose reduction for ALARA by means of automated exposure contro l. FINDINGS -- ABDOMEN: Lung Bases: No acute abnormality. Liver: There is a focal hypodensity identified within the peripheral aspect of the right hepatic lobe that is new from 03/13/2018.. Gallbladder: Removed. Bile Ducts: Normal. Pancreas: Normal. Spleen: Normal. Adrenals: No change in size or appearance of the 1.5 cm left adrenal nodule.. Right Kidney and Proximal Ureter: Nonobstructive right-sided nephrolithiasis.. Left Kidney and Proximal Ureter: Normal. Stomach and Bowel: Normal. Lymph Nodes: No significant adenopathy. Aorta: No significant abnormality. IVC: Normal. Additional Findings: None. FINDINGS -- PELVIS: Urinary Bladder and Distal Ureters: Normal. Reproductive Organs: No acute abnormality. Appendix: Not well identified. Bowel: No acute abnormality. Free Fluid: None. Lymph Nodes: No significant adenopathy. Additional Findings: None. Skeletal System: No acute abnormality. IMPRESSION: 1. Abnormal linear hypodensity identified within the peripheral aspect of the posterior hepatic segme nt of the liver. Possible considerations include subacute to chronic subcapsular hematoma, infection or hepatic laceration (probably subacute). Has the patient had any history of recent injury No acute intraperitoneal hemorrhage is identified. Recommend 6-[address] follow-up to ensure resolution. 2. Nonobstructive nephrolithiasis. Signer Name: Santhosh Crane MD Signed: 07/07/2020 9:13 PM Workstation Name: [id number]
[2020-07-08 00:17] VITALS: BP 132/78
== END 2020-07-08 00:18 | disposition home or self-care (01) ==
LOC: ED 16:40
DX: R11.2 Nausea with vomiting, unspecified (principal); R19.7 Diarrhea, unspecified; R10.9 Unspecified abdominal pain; R53.1 Weakness; I10 Essential (primary) hypertension; E11.9 Type 2 diabetes mellitus without complications; M19.91 Primary osteoarthritis, unspecified site; Z79.4 Long term (current) use of insulin; Z79.899 Other long term (current) drug therapy; Z88.8 Allergy status to other drugs, medicaments and biological substances; Z98.890 Other specified postprocedural states
CPT/HCPCS: 36415; 71045; 74177; 80053; 81001; 82805; 82962; 83690; 85025; 87086; 96361; 96374; 96375; 99284; J2270; J2405; J7030; Q9967

== ENCOUNTER 2020-11-28 07:20 | Emergency (ER) | payer OTHER ==
--- NOTE | 2020-11-28 10:06 | Electrocardiograph Report ---
[facility] Test Date: 2020-11-28 Test Time: 07:35:07 Pat Name: TAY PEDRAZA Department: Room: Gender: F Evp General Counsel: ADELFO : 1970 Requested By: ED DOC Order Number: [id number] Reading MD: Isaías Alaniz Measurements Intervals [place] Rate: 116 P: 73 DE: 146 QRS: 38 QRSD: 79 T: 59 QT: 322 QTc: 448 Interpretive Statements Sinus tachycardia non specfic st-t No previous ECG available for comparison Electronically Signed On 11-28-2020 10:05:38 EDT by Isaías Alaniz
[2020-11-28] MEDS ORDERED: HYDROmorphone 1 MG/1 ML INJ IV ONE ×2 (10:55→13:38)
[2020-11-28] MEDS ORDERED: ONDANSETRON 4 MG/2 ML INJ IV ONE (10:55)
--- NOTE | 2020-11-28 11:00 | Emergency Department Report ---
HPI - General Chief Complaint: Pain General Time Seen by Provider: 11/28/20 10:39 - HPI HPI: This is a 50-year-old -[place] female presents to the emergency department with a complaint of pain to the right side of the abdomen, as well as pain to the right lower back that radiates into the groin and down her right leg. Overall the patient says that this has been going on for the past week. It is associated with copious nausea with vomiting. The patient was recently admitted to [facility] and says that she had an MRI there, that sounds like it was of the abdomen and pelvis, but the patient says that she has the disc but otherwise does not know the results and does not have the written report with her. Patient says that she follows with Dr. Guzman, [facility], for recurrent abdominal pains and "they are trying to figure out what is wrong with me." She also has a primary care provider, Dr. Janette Winter. The patient was discharged with [place] 10 mg but says that that is not helping with her discomfort. The patient says that she is in pain management for fibromyalgia. She also has a past medical history of insulin-dependent diabetes, hypertension. She has a previous surgical history of cholecystectomy and previous . ED Past Medical Hx - Past Medical History Hx Hypertension: Yes Hx Diabetes: Yes Hx Liver Disease: No Hx Renal Disease: No Hx Sickle Cell Disease: No Hx Arthritis: Yes Hx Seizures: No Hx Asthma: No Hx COPD: No Additional medical history: fibromyalgia - Surgical History Hx Pacemaker: No Hx Internal Defibrillator: No Additional Surgical History: c sect - Social History Smoking Status: Never Smoker Substance Use Type: None - Medications Home Medications: Home Medications Medication Instructions Recorded Confirmed Last Taken Type Furosemide [Lasix TAB] 20 mg PO QDAY #30 tablet 02/21/15 Unknown Rx Famotidine [Pepcid] 20 mg PO BID #14 tablet 11/23/17 Unknown Rx Insulin Lispro [HumaLOG VIAL] 0 units SQ AC #1 vial 11/23/17 Unknown Rx Lispro Insulin [HumaLOG] 10 unit SUB-Q AC #1 vial 11/23/17 Unknown Rx Lispro Insulin [HumaLOG] 13 unit SUB-Q AC #1 vial 11/25/17 Unknown Rx Gabapentin 900 mg PO Q8HR 03/13/18 03/13/18 Unknown History Milnacipran HCl [Savella] 50 mg PO BID 03/13/18 03/13/18 Unknown History methOCARBAMOL [Robaxin TAB] 750 mg PO QHS 03/13/18 03/13/18 Unknown History Insulin Glargine [Lantus VIAL] 42 units SUB-Q QHS #1 vial 03/17/18 Unknown Rx Sulfamethoxazole/Trimethoprim 2 each PO BID 10 Days tablet 03/17/18 Unknown Rx [Bactrim DS TAB] oxyCODONE /ACETAMINOPHEN [Percocet 1 tab PO Q4H PRN #14 tablet 03/17/18 Unknown Rx 5/325 mg] Gabapentin 300 mg PO Q8HR #90 capsule 04/21/19 Unknown Rx Metformin HCl [metFORMIN] 1,000 mg PO BID #60 tablet 04/21/19 Unknown Rx oxyCODONE /ACETAMINOPHEN [Percocet 1 tab PO Q6HR PRN #10 tablet 04/21/19 Unknown Rx 5/325] Cyclobenzaprine [Flexeril 10 MG 10 mg PO QHS 14 Days #14 tablet 05/07/19 Unknown Rx TAB] Ketorolac [Toradol] 10 mg PO Q6H PRN #20 tablet 05/21/19 Unknown Rx methOCARBAMOL [Robaxin TAB] 750 mg PO Q8H #20 tablet 05/21/19 Unknown Rx ALBUTEROL NEB's [Proventil 0.083% 2.5 mg IH Q6H PRN #25 vial 08/23/19 Unknown Rx NEBS] Acetaminophen [Acetaminophen TAB] 1,000 mg PO Q6HR PRN #30 tablet 08/23/19 Unknown Rx Famotidine [Pepcid] 20 mg PO BID 7 Days #14 tablet 08/23/19 Unknown Rx Nebulizer [Aeroneb Go Nebulizer] 1 each MC PRN PRN #1 each 08/23/19 Unknown Rx diphenhydrAMINE [Benadryl CAP] 25 mg PO Q8HR PRN #30 capsule 08/23/19 Unknown Rx predniSONE [Deltasone] 40 mg PO QDAY 5 Days #10 tablet 08/23/19 Unknown Rx Ondansetron [Zofran Odt] 4 mg PO Q8HR PRN #14 tab.rapdis 07/07/20 Unknown Rx Cyclobenzaprine [Flexeril] 10 mg PO TID PRN #12 tablet 11/28/20 Unknown Rx ED Review of Systems ROS: Stated complaint: CHEST PAIN, SOB Other details as noted in HPI Comment: All other systems reviewed and negative Constitutional: denies: chills, fever Eyes: denies: eye pain, vision change ENT: denies: ear pain, throat pain Respiratory: denies: cough, shortness of breath Cardiovascular: denies: chest pain, palpitations Gastrointestinal: abdominal pain, nausea, vomiting Genitourinary: denies: dysuria, hematuria Musculoskeletal: back pain. denies: arthralgia Skin: denies: rash, lesions Neurological: denies: headache, weakness Physical Exam - Physical Exam Vital Signs: Vital Signs 11/28/20 07:58 Temperature 98.4 F Pulse Rate 114 H Respiratory 22 Rate Blood Pressure 141/93 O2 Sat by Pulse 100 Oximetry Physical Exam: GENERAL: The patient is well-developed well-nourished. HENT: Normocephalic. Atraumatic. Patient has moist mucous membranes. EYES: Extraocular motions are intact. NECK: Supple. Trachea is midline. CHEST/LUNGS: Clear to auscultation. There is no respiratory distress noted. HEART/CARDIOVASCULAR: Regular. There is mild tachycardia. There is no murmur. ABDOMEN: Abdomen is soft. Right-sided abdominal tenderness to palpation. Patient has normal bowel sounds. Morbidly obese habitus. SKIN: Skin is warm and dry. NEURO: The patient is awake, alert, and oriented. The patient is cooperative. The patient has no focal neurologic deficits. Normal speech. MUSCULOSKELETAL: There is some tenderness to palpation along the right thigh and calf. Positive right-sided straight leg raise test. There is no limitation range of motion. ED Course Vital Signs 11/28/20 07:58 Temperature 98.4 F Pulse Rate 114 H Respiratory 22 Rate Blood Pressure 141/93 O2 Sat by Pulse 100 Oximetry ED Medical Decision Making - Lab Data Result diagrams: 11/28/20 11:15 11/28/20 11:15 Lab Results 11/28/20 11/28/20 11/28/20 Range/Units 08:06 11:15 11:15 WBC 10.0 (4.5-11.0) K/mm3 RBC 5.60 H (3.65-5.03) M/mm3 Hgb 17.8 H (10.1-14.3) gm/dl Hct 50.6 H (30.3-42.9) % MCV 90 (79-97) fl MCH 32 (28-32) pg MCHC 35 H (30-34) % RDW 13.5 (13.2-15.2) % Plt Count 372 (140-440) K/mm3 Lymph % (Auto) 24.3 (13.4-35.0) % [place] % (Auto) 9.1 H (0.0-7.3) % Eos % (Auto) 0.0 (0.0-4.3) % Baso % (Auto) 1.2 (0.0-1.8) % Lymph # (Auto) 2.4 (1.2-5.4) K/mm3 [place] # (Auto) 0.9 H (0.0-0.8) K/mm3 Eos # (Auto) 0.0 (0.0-0.4) K/mm3 Baso # (Auto) 0.1 (0.0-0.1) K/mm3 Seg Neutrophils % 65.4 (40.0-70.0) % Seg Neutrophils # 6.5 (1.8-7.7) K/mm3 VBG pH (7.320-7.420) Sodium 136 L (137-145) mmol/L Potassium 3.9 (3.6-5.0) mmol/L Chloride 94.4 L (98-107) mmol/L Carbon Dioxide 26 (22-30) mmol/L Anion Gap 20 mmol/L BUN 12 (7-17) mg/dL Creatinine 0.7 (0.6-1.2) mg/dL Estimated GFR > 60 ml/min BUN/Creatinine Ratio 17 % Glucose 340 H (65-100) mg/dL POC Glucose 349 H (70-105) mg/dL Calcium 10.3 H (8.4-10.2) mg/dL Total Bilirubin 1.10 (0.1-1.2) mg/dL Direct Bilirubin 0.3 H (0-0.2) mg/dL Indirect Bilirubin 0.8 mg/dL AST 100 H (5-40) units/L ALT 88 H (7-56) units/L Alkaline Phosphatase 196 H (35-129) units/L Total Protein 7.6 (6.3-8.2) g/dL Albumin 4.3 (3.9-5) g/dL Albumin/Globulin Ratio 1.3 % Lipase 15 (13-60) units/L Urine Color (Yellow) Urine Turbidity (Clear) Urine pH (5.0-7.0) Ur Specific [place] (1.003-1.030) Urine Protein (Negative) mg/dL Urine Glucose (UA) (Negative) mg/dL Urine Ketones (Negative) mg/dL Urine Blood (Negative) Urine Nitrite (Negative) Urine Bilirubin (Negative) Urine Urobilinogen (<2.0) mg/dL Ur Leukocyte Esterase (Negative) Urine WBC (Auto) (0.0-6.0) /HPF Urine RBC (Auto) (0.0-6.0) /HPF U Epithel Cells (Auto) (0-13.0) /HPF 11/28/20 11/28/20 11/28/20 Range/Units 11:15 14:13 14:20 WBC (4.5-11.0) K/mm3 RBC (3.65-5.03) M/mm3 Hgb (10.1-14.3) gm/dl Hct (30.3-42.9) % MCV (79-97) fl MCH (28-32) pg MCHC (30-34) % RDW (13.2-15.2) % Plt Count (140-440) K/mm3 Lymph % (Auto) (13.4-35.0) % [place] % (Auto) (0.0-7.3) % Eos % (Auto) (0.0-4.3) % Baso % (Auto) (0.0-1.8) % Lymph # (Auto) (1.2-5.4) K/mm3 [place] # (Auto) (0.0-0.8) K/mm3 Eos # (Auto) (0.0-0.4) K/mm3 Baso # (Auto) (0.0-0.1) K/mm3 Seg Neutrophils % (40.0-70.0) % Seg Neutrophils # (1.8-7.7) K/mm3 VBG pH 7.445 H (7.320-7.420) Sodium (137-145) mmol/L Potassium (3.6-5.0) mmol/L Chloride (98-107) mmol/L Carbon Dioxide (22-30) mmol/L Anion Gap mmol/L BUN (7-17) mg/dL Creatinine (0.6-1.2) mg/dL Estimated GFR ml/min BUN/Creatinine Ratio % Glucose (65-100) mg/dL POC Glucose 262 H (70-105) mg/dL Calcium (8.4-10.2) mg/dL Total Bilirubin (0.1-1.2) mg/dL Direct Bilirubin (0-0.2) mg/dL Indirect Bilirubin mg/dL AST (5-40) units/L ALT (7-56) units/L Alkaline Phosphatase (35-129) units/L Total Protein (6.3-8.2) g/dL Albumin (3.9-5) g/dL Albumin/Globulin Ratio % Lipase (13-60) units/L Urine Color [place] (Yellow) Urine Turbidity Clear (Clear) Urine pH 5.0 (5.0-7.0) Ur Specific [place] 1.060 H (1.003-1.030) Urine Protein <15 mg/dl (Negative) mg/dL Urine Glucose (UA) 50 (Negative) mg/dL Urine Ketones Tr (Negative) mg/dL Urine Blood Neg (Negative) Urine Nitrite Neg (Negative) Urine Bilirubin Neg (Negative) Urine Urobilinogen < 2.0 (<2.0) mg/dL Ur Leukocyte Esterase Neg (Negative) Urine WBC (Auto) < 1.0 (0.0-6.0) /HPF Urine RBC (Auto) < 1.0 (0.0-6.0) /HPF U Epithel Cells (Auto) < 1.0 (0-13.0) /HPF - EKG Data -: EKG Interpreted by Oh EKG shows normal: sinus rhythm, axis, intervals, QRS complexes, ST-T waves Rate: tachycardia (116 bpm) - EKG Data When compared to previous EKG there are: no significant change, previous EKG unavailable Interpretation: unchanged when compared t (04/21/19) - Radiology Data Radiology results: report reviewed DUPLEX DOPPLER LOWER EXTREMITY VEINS, RIGHT INDICATION / CLINICAL INFORMATION: RLE pain and swelling. TECHNIQUE: Duplex doppler imaging was performed through the veins of the right lower extremity using venous compression and other maneuvers. COMPARISON: None available. FINDINGS: RIGHT COMMON FEMORAL VEIN: Negative. RIGHT FEMORAL VEIN: Negative. RIGHT POPLITEAL VEIN: Negative. RIGHT CALF VEINS: Negative. ADDITIONAL FINDINGS: None. IMPRESSION: 1. No sonographic evidence for DVT in the right lower extremity. CT abdomen pelvis w con INDICATION / CLINICAL INFORMATION: Right sided abdominal and pelvic pain xmonths [id number] 100ml. TECHNIQUE: Axial CT images were obtained through the abdomen and pelvis after IV contrast. All CT scans at this location are performed using CT dose reduction for ALARA by means of automated exposure control. COMPARISON: CT from 07/07/2020 FINDINGS: LOWER CHEST: No significant abnormality LIVER: Geographic area of hypoattenuation within the right hepatic lobe is consistent with hepatic steatosis. Previously seen linear hypodensity along the posterior aspect of the right hepatic lobe is no longer seen. No suspicious lesions. GALLBLADDER/BILIARY TREE: Gallbladder is surgically absent. No biliary dilatation. PANCREAS: No significant abnormality SPLEEN: No significant abnormality ADRENALS: Stable 1.5 cm nodule, likely reflects adrenal adenoma. KIDNEYS / URETER: 2 mm nonobstructive right renal calculus. No ureteral calculus or hydronephrosis. Kidneys enhance symmetrically. URINARY BLADDER: Bladder is partially decompressed, though grossly unremarkable. REPRODUCTIVE ORGANS: No significant abnormality STOMACH / BOWEL: No significant abnormality. The appendix is normal in caliber. LYMPH NODES: No significant adenopathy. VASCULATURE: No significant abnormality. OTHER: No free air, free fluid, or focal fluid collection is identified. Fat-containing periumbilical hernia without complication. SKELETAL SYSTEM: Degenerative changes of the spine. No acute osseous findings. IMPRESSION: 1. No acute abnormality of the abdomen or pelvis. 2. Linear hypodensity in the right hepatic lobe is no longer visualized. This may reflect resolution in hematoma. 2. Other stable chronic and incidental findings as above. - Medical Decision Making The patient presents with 2 main complaints. First, the patient has some right- sided abdominal pain with nausea and vomiting. Secondly, patient has some pain going from her right lower back, down to the buttock and down her right leg and she feels like the leg may be swollen. On examination she does have reproducible right-sided abdominal tenderness, but the abdomen is soft. I do not see any appreciable swelling of the right lower extremity but she is tender along the right lower extremity. She appears neurovascularly intact. Labs have been mostly unremarkable except for some transaminitis, hyperglycemia without diabetic ketoacidosis, and a slightly elevated hemoglobin level that may be secondary to some dehydration. Patient was given some IV fluid resuscitation, antiemetics, and a dose of insulin. Her blood sugar came down to about 250. She was given 2 different doses of IV analgesia with great improvement of her discomfort. CT of the abdomen and pelvis with IV contrast did not show any acute process or etiology of the patient's abdominal pains. Right lower extremity venous Doppler ultrasound was negative for DVT. The patient is able to stand and ambulate. She appears safe for discharge home at this time. She has good outpatient follow-up with primary care and gastroenterology. She has been given a referral for a local neurosurgeon regarding what appears to be sciatica and she was given a prescription for a muscle relaxer. We discussed the transaminitis and she understands to avoid any alcohol use or any use of Tylenol/acetaminophen. She will return to the emergency department any worsening of her symptoms or with any acute distress. Critical Care Time: No Critical care attestation.: If time is entered above; I have spent that time in minutes in the direct care of this critically ill patient, excluding procedure time. ED Disposition Clinical Impression: Hyperglycemia, Elevated liver enzymes Abdominal pain Qualifiers: Abdominal location: generalized Qualified Code(s): R10.84 - Generalized abdominal pain Sciatica Qualifiers: Laterality: right Qualified Code(s): M54.31 - Sciatica, right side Disposition: DC-01 TO HOME OR SELFCARE Is pt being admited?: No Condition: Stable Instructions: Abdominal Pain, Adult, Hyperglycemia, Sciatica Additional Instructions: Please follow-up with your primary care physician in the next few days. Please follow-up with your senior product integrity engineer, Dr. Guzman, regarding your abdominal pain and elevated liver enzymes. Due to the elevated liver enzymes, please avoid any use of Tyle nol/acetaminophen, or any alcohol. I'm giving you a referral for a local neurosurgeon, Dr. Agosto, to follow-up regarding your back pain that appears to be sciatica. Please take all of your medications as prescribed. Try to stay away from foods that are high in sugar, carbohydrates and starches. Keep a blood sugar log. You have been prescribed a medication that is sedating and therefore should not be taken prior to driving, working, and responsible for children and in no way should be mixed with alcohol of any quantity. Return to the emergency department with any worsening of your symptoms, new or concerning symptoms not addressed during this current emergency department visit, or with any acute distress. Prescriptions: Cyclobenzaprine [Flexeril] 10 mg PO TID PRN #12 tablet PRN Reason: Muscle Spasm Referrals: PRIMARY CARE,MD [Primary Care Provider] - 3-5 Days ESSIE AGOSTO II, MD [Staff Physician] - 3-5 Days TAL GUZMAN MD [Staff Physician] - 3-5 Days Time of Disposition: 15:30
[2020-11-28 11:39] LABS: Basophils # (Auto) 0.1 K/mm3 (0.0-0.1); Basophils % (Auto) 1.2 % (0.0-1.8); Hematocrit 50.6 % (30.3-42.9); Hemoglobin 17.8 gm/dl (10.1-14.3); Lymphocytes # (Auto) 2.4 K/mm3 (1.2-5.4); Lymphocytes % (Auto) 24.3 % (13.4-35.0); Mean Corpuscular HGB Conc 35 % (30-34); Mean Corpuscular Volume 90 fl (79-97); Monocytes # (Auto) 0.9 K/mm3 (0.0-0.8); Monocytes % (Auto) 9.1 % (0.0-7.3); Platelet Count 372 K/mm3 (140-440); Red Cell Distribution Width 13.5 % (13.2-15.2)
[2020-11-28] MEDS ORDERED: SODIUM CHLORIDE 0.9% 1000 ML 1,000 ML IV ONE (11:45)
[2020-11-28 11:51] LABS: Alanine Aminotransferase 88 units/L (7-56); Albumin 4.3 g/dL (3.9-5); Bilirubin,Direct 0.3 mg/dL (0-0.2); Blood Urea Nitrogen 12 mg/dL (7-17); Calcium 10.3 mg/dL (8.4-10.2); Hemolysis Index 8
[2020-11-28] MEDS ORDERED: INSULIN REGULAR, HUMAN 100 UNITS/1 ML IV ONE (11:52)
[2020-11-28 12:08] LABS: BUN/Creatinine Ratio 17
--- NOTE | 2020-11-28 12:52 | Cat Scan Report ---
CT abdomen pelvis w con INDICATION / CLINICAL INFORMATION: Right sided abdominal and pelvic pain xmonths [id number] 100ml. TECHNIQUE: Axial CT images were obtained through the abdomen and pelvis after IV contrast. All CT sc ans at this location are performed using CT dose reduction for ALARA by means of automated exposure c ontrol. COMPARISON: CT from 07/07/2020 FINDINGS: LOWER CHEST: No significant abnormality LIVER: Geographic area of hypoattenuation within the right hepatic lobe is consistent with hepatic st eatosis. Previously seen linear hypodensity along the posterior aspect of the right hepatic lobe is n o longer seen. No suspicious lesions. GALLBLADDER/BILIARY TREE: Gallbladder is surgically absent. No biliary dilatation. PANCREAS: No significant abnormality SPLEEN: No significant abnormality ADRENALS: Stable 1.5 cm nodule, likely reflects adrenal adenoma. KIDNEYS / URETER: 2 mm nonobstructive right renal calculus. No ureteral calculus or hydronephrosis. K idneys enhance symmetrically. URINARY BLADDER: Bladder is partially decompressed, though grossly unremarkable. REPRODUCTIVE ORGANS: No significant abnormality STOMACH / BOWEL: No significant abnormality. The appendix is normal in caliber. LYMPH NODES: No significant adenopathy. VASCULATURE: No significant abnormality. OTHER: No free air, free fluid, or focal fluid collection is identified. Fat-containing periumbilical hernia without complication. SKELETAL SYSTEM: Degenerative changes of the spine. No acute osseous findings. IMPRESSION: 1. No acute abnormality of the abdomen or pelvis. 2. Linear hypodensity in the right hepatic lobe is no longer visualized. This may reflect resolution in hematoma. 2. Other stable chronic and incidental findings as above. Signer Name: Isidoro Irwin MD Signed: 11/28/2020 12:48 PM Workstation Name: [email or web address]
--- NOTE | 2020-11-28 13:34 | Vascular Lab Report ---
DUPLEX DOPPLER LOWER EXTREMITY VEINS, RIGHT INDICATION / CLINICAL INFORMATION: RLE pain and swelling. TECHNIQUE: Duplex doppler imaging was performed through the veins of the right lower extremity using venous compression and other maneuvers. COMPARISON: None available. FINDINGS: RIGHT COMMON FEMORAL VEIN: Negative. RIGHT FEMORAL VEIN: Negative. RIGHT POPLITEAL VEIN: Negative. RIGHT CALF VEINS: Negative. ADDITIONAL FINDINGS: None. IMPRESSION: 1. No sonographic evidence for DVT in the right lower extremity. Signer Name: Alexander Erwin MD Signed: 11/28/2020 1:29 PM Workstation Name: [id number]
[2020-11-28 15:19] LABS: Bilirubin,Urine NEG (Negative); Blood,Urine NEG (Negative); Color,Urine Amber (Yellow); Protein,Urine <15 mg/dL mg/dL (Negative); RBC,Urine < 1.0 /HPF (0.0-6.0); Urobilinogen,Urine < 2.0 mg/dL (<2.0); WBC,Urine < 1.0 /HPF (0.0-6.0)
[2020-11-28 15:52] VITALS: BP 145/89
== END 2020-11-28 15:53 | disposition home or self-care (01) ==
LOC: ED 07:20
DX: E11.65 Type 2 diabetes mellitus with hyperglycemia (principal); M54.41 Lumbago with sciatica, right side; R10.9 Unspecified abdominal pain; R94.5 Abnormal results of liver function studies; I10 Essential (primary) hypertension; M19.91 Primary osteoarthritis, unspecified site; Z98.890 Other specified postprocedural states; Z79.4 Long term (current) use of insulin; Z79.899 Other long term (current) drug therapy; Z88.6 Allergy status to analgesic agent
CPT/HCPCS: 36415; 74177; 80048; 80076; 81001; 82805; 82962; 83690; 85025; 93005; 93971; 96361; 96374; 96375; 96376; 99284; J1170; J2405; J7030; Q9967; J1815

== ENCOUNTER 2021-01-11 20:13 | Emergency (ER) | payer OTHER ==
[2021-01-11 22:04] LABS: Basophils % (Auto) 0.3 % (0.0-1.8); Eosinophils # (Auto) 0.1 K/mm3 (0.0-0.4); Eosinophils % (Auto) 0.9 % (0.0-4.3); Hematocrit 45.9 % (30.3-42.9); Hemoglobin 15.9 gm/dl (10.1-14.3); Lymphocytes # (Auto) 3.4 K/mm3 (1.2-5.4); Lymphocytes % (Auto) 45.9 % (13.4-35.0); Mean Corpuscular HGB Conc 35 % (30-34); Mean Corpuscular Volume 93 fl (79-97); Monocytes # (Auto) 0.5 K/mm3 (0.0-0.8); Monocytes % (Auto) 6.8 % (0.0-7.3); Platelet Count 307 K/mm3 (140-440); Red Blood Count 4.94 M/mm3 (3.65-5.03)
[2021-01-11 22:23] LABS: Alanine Aminotransferase 47 units/L (7-56); Albumin 3.8 g/dL (3.9-5); Blood Urea Nitrogen 13 mg/dL (7-17); Calcium 9.1 mg/dL (8.4-10.2); Hemolysis Index 6
[2021-01-11 22:29] LABS: BUN/Creatinine Ratio 22
[2021-01-12 01:15] VITALS: BP 148/91
[2021-01-12] MEDS ORDERED: ONDANSETRON 4 MG/2 ML INJ IV ONE (05:08)
[2021-01-12] MEDS ORDERED: HYDROmorphone 1 MG/1 ML INJ IV ONE (05:08)
[2021-01-12] MEDS ORDERED: SODIUM CHLORIDE 0.9% 1000 ML 1,000 ML IV ONE (05:08)
[2021-01-12] MEDS ORDERED: FAMOTIDINE 20 MG/2 ML INJ IV ONE (05:08)
--- NOTE | 2021-01-12 06:36 | Emergency Department Report ---
ED Abdominal Pain HPI - General Chief Complaint: Abdominal Pain Stated Complaint: POSS KIDNEY STONE/PAIN/VOMITING Source: patient Mode of arrival: Wheelchair Limitations: No Limitations - History of Present Illness Initial Comments: Patient is a 51-year-old -[place] female with a history of GERD, hypertension, chronic pain due to fibromyalgia, osteoarthritis and chronic lumbar disc disease who presents to the ED with complaint of acute onset persistent diffuse abdominal pain worse in the lower abdomen for the last 2 weeks, worse in the last 3 days. Patient states that she has had similar pain persistently in the last 3 months and has been evaluated by GI physician but states that no etiology of her symptoms. Patient states that she also has had MRI to determine the etiology of her pain but states that no acute abnormalities were found. Patient states that she has not had a bowel movement in 2 weeks and has had persistent nausea and vomiting. Patient states that she has been taking her chronic pain medications at home with no relief. Patient denies hem atemesis, hematochezia, dysuria, urinary frequency and urgency, vaginal bleeding, vaginal discharge, fever, chills, cough, nasal and sinus congestion, heavy lifting, fall or palpitations and syncope and dizziness MD Complaint: abdominal pain, other (nausea and vomiting) -: Gradual, month(s) (3) Location: LLQ, RLQ, suprapubic Radiation: LLQ, RLQ, suprapubic Migration to: no migration Severity: severe Severity scale (0 -10): 8 Quality: cramping, aching, sharp Consistency: constant Improves With: nothing Worsens With: nothing Associated Symptoms: denies other symptoms, nausea, vomiting, constipation, anorexia. denies: diarrhea, fever, dysuria, hematemesis, hematochezia, melena, hematuria, syncope - Related Data Home Medications Medication Instructions Recorded Confirmed Last Taken Gabapentin 900 mg PO Q8HR 03/13/18 03/13/18 Unknown Milnacipran HCl [Savella] 50 mg PO BID 03/13/18 03/13/18 Unknown methOCARBAMOL [Robaxin TAB] 750 mg PO QHS 03/13/18 03/13/18 Unknown Previous Rx's Medication Instructions Recorded Last Taken Type Furosemide [Lasix TAB] 20 mg PO QDAY #30 tablet 02/21/15 Unknown Rx Famotidine [Pepcid] 20 mg PO BID #14 tablet 11/23/17 Unknown Rx Insulin Lispro [HumaLOG VIAL] 0 units SQ AC #1 vial 11/23/17 Unknown Rx Lispro Insulin [HumaLOG] 10 unit SUB-Q AC #1 vial 11/23/17 Unknown Rx Lispro Insulin [HumaLOG] 13 unit SUB-Q AC #1 vial 11/25/17 Unknown Rx Insulin Glargine [Lantus VIAL] 42 units SUB-Q QHS #1 vial 03/17/18 Unknown Rx Sulfamethoxazole/Trimethoprim 2 each PO BID 10 Days tablet 03/17/18 Unknown Rx [Bactrim DS TAB] oxyCODONE /ACETAMINOPHEN [Percocet 1 tab PO Q4H PRN #14 tablet 03/17/18 Unknown Rx 5/325 mg] Gabapentin 300 mg PO Q8HR #90 capsule 04/21/19 Unknown Rx Metformin HCl [metFORMIN] 1,000 mg PO BID #60 tablet 04/21/19 Unknown Rx oxyCODONE /ACETAMINOPHEN [Percocet 1 tab PO Q6HR PRN #10 tablet 04/21/19 Unknown Rx 5/325] Cyclobenzaprine [Flexeril 10 MG 10 mg PO QHS 14 Days #14 tablet 05/07/19 Unknown Rx TAB] Ketorolac [Toradol] 10 mg PO Q6H PRN #20 tablet 05/21/19 Unknown Rx methOCARBAMOL [Robaxin TAB] 750 mg PO Q8H #20 tablet 05/21/19 Unknown Rx ALBUTEROL NEB's [Proventil 0.083% 2.5 mg IH Q6H PRN #25 vial 08/23/19 Unknown Rx NEBS] Acetaminophen [Acetaminophen TAB] 1,000 mg PO Q6HR PRN #30 tablet 08/23/19 Un known Rx Famotidine [Pepcid] 20 mg PO BID 7 Days #14 tablet 08/23/19 Unknown Rx Nebulizer [Aeroneb Go Nebulizer] 1 each MC PRN PRN #1 each 08/23/19 Unknown Rx diphenhydrAMINE [Benadryl CAP] 25 mg PO Q8HR PRN #30 capsule 08/23/19 Unknown Rx predniSONE [Deltasone] 40 mg PO QDAY 5 Days #10 tablet 08/23/19 Unknown Rx Ondansetron [Zofran Odt] 4 mg PO Q8HR PRN #14 tab.rapdis 07/07/20 Unknown Rx Cyclobenzaprine [Flexeril] 10 mg PO TID PRN #12 tablet 11/28/20 Unknown Rx Allergies Allergy/AdvReac Type Severity Reaction Status Date / Time aspirin Allergy Vomiting Verified 11/28/20 07:52 ED Review of Systems ROS: Stated complaint: POSS KIDNEY STONE/PAIN/VOMITING Other details as noted in HPI Constitutional: malaise, weakness. denies: chills, fever Eyes: denies: eye pain, eye discharge, vision change ENT: denies: ear pain, throat pain Respiratory: denies: cough, shortness of breath, wheezing Cardiovascular: denies: chest pain, palpitations Endocrine: no symptoms reported Gastrointestinal: abdominal pain, nausea, vomiting, constipation. denies: diarrhea, hematochezia, other Genitourinary: denies: urgency, dysuria, frequency, discharge, abnormal menses Musculoskeletal: arthralgia, myalgia. denies: back pain, joint swelling Skin: denies: rash, lesions Neurological: headache. denies: weakness, paresthesias Psychiatric: anxiety. denies: depression Hematological/Lymphatic: denies: easy bleeding, easy bruising ED Past Medical Hx - Past Medical History Previous Medical History?: Yes Hx Hypertension: Yes Hx Diabetes: Yes Hx Liver Disease: No Hx Renal Disease: No Hx Sickle Cell Disease: No Hx Arthritis: Yes Hx Seizures: No Hx Asthma: No Hx COPD: No Additional medical history: fibromyalgia - Surgical History Past Surgical History?: Yes Hx Pacemaker: No Hx Internal Defibrillator: No Hx Cholecystectomy: Yes Additional Surgical History: c sect - Social History Smoking Status: Never Smoker Substance Use Type: None - Medications Home Medications: Home Medications Medication Instructions Recorded Confirmed Last Taken Type Furosemide [Lasix TAB] 20 mg PO QDAY #30 tablet 02/21/15 Unknown Rx Famotidine [Pepcid] 20 mg PO BID #14 tablet 11/23/17 Unknown Rx Insulin Lispro [HumaLOG VIAL] 0 units SQ AC #1 vial 11/23/17 Unknown Rx Lispro Insulin [HumaLOG] 10 unit SUB-Q AC #1 vial 11/23/17 Unknown Rx Lispro Insulin [HumaLOG] 13 unit SUB-Q AC #1 vial 11/25/17 Unknown Rx Gabapentin 900 mg PO Q8HR 03/13/18 03/13/18 Unknown History Milnacipran HCl [Savella] 50 mg PO BID 03/13/18 03/13/18 Unknown History methOCARBAMOL [Robaxin TAB] 750 mg PO QHS 03/13/18 03/13/18 Unknown History Insulin Glargine [Lantus VIAL] 42 units SUB-Q QHS #1 vial 03/17/18 Unknown Rx Sulfamethoxazole/Trimethoprim 2 each PO BID 10 Days tablet 03/17/18 Unknown Rx [Bactrim DS TAB] oxyCODONE /ACETAMINOPHEN [Percocet 1 tab PO Q4H PRN #14 tablet 03/17/18 Unknown Rx 5/325 mg] Gabapentin 300 mg PO Q8HR #90 capsule 04/21/19 Unknown Rx Metformin HCl [metFORMIN] 1,000 mg PO BID #60 tablet 04/21/19 Unknown Rx oxyCODONE /ACETAMINOPHEN [Percocet 1 tab PO Q6HR PRN #10 tablet 04/21/19 Unknow n Rx 5/325] Cyclobenzaprine [Flexeril 10 MG 10 mg PO QHS 14 Days #14 tablet 05/07/19 Unknow n Rx TAB] Ketorolac [Toradol] 10 mg PO Q6H PRN #20 tablet 05/21/19 Unknown Rx methOCARBAMOL [Robaxin TAB] 750 mg PO Q8H #20 tablet 05/21/19 Unknown Rx ALBUTEROL NEB's [Proventil 0.083% 2.5 mg IH Q6H PRN #25 vial 08/23/19 Unknown Rx NEBS] Acetaminophen [Acetaminophen TAB] 1,000 mg PO Q6HR PRN #30 tablet 08/23/19 Unknown Rx Famotidine [Pepcid] 20 mg PO BID 7 Days #14 tablet 08/23/19 Unknown Rx Nebulizer [Aeroneb Go Nebulizer] 1 each MC PRN PRN #1 each 08/23/19 Unknown Rx diphenhydrAMINE [Benadryl CAP] 25 mg PO Q8HR PRN #30 capsule 08/23/19 Unknown Rx predniSONE [Deltasone] 40 mg PO QDAY 5 Days #10 tablet 08/23/19 Unknown Rx Ondansetron [Zofran Odt] 4 mg PO Q8HR PRN #14 tab.rapdis 07/07/20 Unknown Rx Cyclobenzaprine [Flexeril] 10 mg PO TID PRN #12 tablet 11/28/20 Unknown Rx ED Physical Exam - General Limitations: No Limitations General appearance: alert, in no apparent distress - Head Head exam: Present: atraumatic, normocephalic, normal inspection - Eye Eye exam: Present: normal appearance, PERRL, EOMI. Absent: scleral icterus, conjunctival injection, periorbital swelling, periorbital tenderness - ENT ENT exam: Present: normal exam, normal orophraynx, mucous membranes moist, TM's normal bilaterally, normal external ear exam - Neck Neck exam: Present: normal inspection, full ROM. Absent: tenderness - Respiratory Respiratory exam: Present: normal lung sounds bilaterally. Absent: respiratory distress, wheezes, rales, rhonchi, chest wall tenderness, accessory muscle use - Cardiovascular Cardiovascular Exam: Present: regular rate, normal rhythm, normal heart sounds. Absent: systolic murmur, diastolic murmur, rubs, gallop - GI/Abdominal GI/Abdominal exam: Present: soft, tenderness (Palpable diffuse lower abdominal tenderness, no guarding or rebound), normal bowel sounds. Absent: guarding, rebound, hyperactive bowel sounds, hypoactive bowel sounds, organomegaly - Extremities Exam Extremities exam: Present: normal inspection, full ROM, normal capillary refill - Back Exam Back exam: Present: normal inspection, full ROM. Absent: tenderness, CVA tenderness (R), CVA tenderness (L), muscle spasm, paraspinal tenderness, vertebral tenderness - Neurological Exam Neurological exam: Present: alert, oriented X3, CN II-XII intact, normal gait, reflexes normal - Psychiatric Psychiatric exam: Present: normal affect, normal mood - Skin Skin exam: Present: warm, dry, intact, normal color. Absent: rash ED Course Vital Signs 01/11/21 01/12/21 01/12/21 21:34 01:15 05:41 Temperature 98.0 F Pulse Rate 95 H 100 H Respiratory 18 16 18 Rate Blood Pressure 151/86 148/91 [Right] O2 Sat by Pulse 97 100 Oximetry 01/12/21 06:11 Temperature Pulse Rate Respiratory 18 Rate Blood Pressure [Right] O2 Sat by Pulse Oximetry ED Medical Decision Making - Lab Data Result diagrams: 01/11/21 21:42 01/11/21 21:42 - Medical Decision Making This is a 51-year-old -[place] female with a history of GERD, hypertension, chronic pain due to fibromyalgia, osteoarthritis and chronic lumbar disc disease who presents to the ED with complaint of acute onset persistent diffuse abdominal pain worse in the lower abdomen for the last 2 weeks, worse in the last 3 days. Patient states that she has had similar pain persistently in the last 3 months and has been evaluated by GI physician but states that no etiology of her symptoms. Patient states that she also has had MRI to determine the etiology of her pain but states that no acute abnormalities were found. Patient states that she has not had a bowel movement in 2 weeks and has had persistent nausea and vomiting. Patient states that she has been taking her chronic pain medications at home with no relief. In the ED, patient is alert and oriented x3 and is not in any distress, is hemodynamically stable but appears to be in pain. Patient was treated for pain in the ED and also given antiemetics and antacids with normal saline monitor IV bolus x1. Lab test results were reviewed and were all nonactionable. Abdomen pelvis CT scan with contrast was ordered. Patient care was transferred to Ms. Kamran Mariscal PA-C at shift change at 0700 hrs. She shall review all lab test results and imaging report and disposition the patient accordingly. Patient apparently refused further tests including previously ordered Abdomen Pelvic CT scan w/contrast and signed out AMA from the ED. - Differential Diagnosis Kidney stone; colitis; diverticulitis; UTI; uterine fibroids; neoplasm Critical care attestation.: If time is entered above; I have spent that time in minutes in the direct care of this critically ill patient, excluding procedure time. ED Disposition Clinical Impression: Generalized abdominal pain, Chronic pain syndrome, Nausea and vomiting in adult patient Disposition: 07 LEFT AGAINST MEDICAL ADVICE Is pt being admited?: No Does the pt Need Aspirin: No Condition: Undetermined Instructions: Abdominal Pain (ED) Referrals: PRIMARY CARE, [Primary Care Provider] - 3-5 Days Forms: AMA Form
[2021-01-12 07:25] LABS: Bilirubin,Urine NEG (Negative); Blood,Urine NEG (Negative); Color,Urine Yellow (Yellow); Mucus,Urine FEW /HPF; Protein,Urine <15 mg/dL mg/dL (Negative); WBC,Urine < 1.0 /HPF (0.0-6.0)
[2021-01-12] MEDS ORDERED: LORazepam 1 MG TAB PO ONE (08:25)
== END 2021-01-12 08:36 | disposition left against medical advice (07) ==
LOC: ED 20:13
DX: G89.4 Chronic pain syndrome (principal); R11.2 Nausea with vomiting, unspecified; R10.32 Left lower quadrant pain; R10.31 Right lower quadrant pain; I10 Essential (primary) hypertension; E11.9 Type 2 diabetes mellitus without complications; M79.7 Fibromyalgia; Z88.6 Allergy status to analgesic agent; Z79.899 Other long term (current) drug therapy
CPT/HCPCS: 36415; 80053; 81001; 82962; 83690; 85025; 96361; 96374; 96375; 99284; J1170; J2405; J7030

== ENCOUNTER 2021-03-27 06:07 | Emergency (ER) | payer OTHER ==
[2021-03-27 06:45] LABS: Basophils % (Auto) 0.3 % (0.0-1.8); Eosinophils # (Auto) 0.1 K/mm3 (0.0-0.4); Eosinophils % (Auto) 1.3 % (0.0-4.3); Hematocrit 43.6 % (30.3-42.9); Hemoglobin 14.5 gm/dl (10.1-14.3); Lymphocytes # (Auto) 2.1 K/mm3 (1.2-5.4); Lymphocytes % (Auto) 30.5 % (13.4-35.0); Mean Corpuscular HGB Conc 33 % (30-34); Mean Corpuscular Volume 92 fl (79-97); Monocytes # (Auto) 0.5 K/mm3 (0.0-0.8); Monocytes % (Auto) 7.2 % (0.0-7.3); Platelet Count 368 K/mm3 (140-440); Red Blood Count 4.76 M/mm3 (3.65-5.03); Red Cell Distribution Width 13.2 % (13.2-15.2)
--- NOTE | 2021-03-27 07:07 | Emergency Department Report ---
HPI - General Chief Complaint: Chest Pain Time Seen by Provider: 03/27/21 06:38 - HPI HPI: Room 38 The patient is a 50-year-old female present with a chief complaint of swelling and shortness of breath. The patient states she noticed swelling in bilateral lower extremities and hands over the past 3 days. Patient states 2 days ago she developed shortness of breath at night when she sleeps. Patient states that shortness of breath causes her to wake up and she improves after approximately 1 hour. However patient denies dyspnea on exertion stating she can walk and go up stairs without difficulty. Patient states for the past 4 days she has had a pleuritic pain ONLY feeling pain when she takes a deep breath in. Patient describes his pain as sharp and sticking in nature. When asked how she is feeling currently the patient states "I feel fine." Patient denies history of cough or fever. Patient states she is to receive all 3 of her vaccinations for Covid ED Past Medical Hx - Past Medical History Previous Medical History?: Yes Hx Hypertension: Yes Hx Diabetes: Yes Hx Arthritis: Yes Additional medical history: fibromyalgia - Surgical History Hx Cholecystectomy: Yes Additional Surgical History: c sect - Family History Family history: no significant - Social History Smoking Status: Former Smoker (None x4 years) Substance Use Type: None (Denies illicit drug use) - Medications Home Medications: Home Medications Medication Instructions Recorded Confirmed Last Taken Type Furosemide [Lasix TAB] 20 mg PO QDAY #30 tablet 02/21/15 Unknown Rx Famotidine [Pepcid] 20 mg PO BID #14 tablet 11/23/17 Unknown Rx Insulin Lispro [HumaLOG VIAL] 0 units SQ AC #1 vial 11/23/17 Unknown Rx Lispro Insulin [HumaLOG] 10 unit SUB-Q AC #1 vial 11/23/17 Unknown Rx Lispro Insulin [HumaLOG] 13 unit SUB-Q AC #1 vial 11/25/17 Unknown Rx Gabapentin 900 mg PO Q8HR 03/13/18 03/13/18 Unknown History Milnacipran HCl [Savella] 50 mg PO BID 03/13/18 03/13/18 Unknown History methOCARBAMOL [Robaxin TAB] 750 mg PO QHS 03/13/18 03/13/18 Unknown History Insulin Glargine [Lantus VIAL] 42 units SUB-Q QHS #1 vial 03/17/18 Unknown Rx Sulfamethoxazole/Trimethoprim 2 each PO BID 10 Days tablet 03/17/18 Unknown Rx [Bactrim DS TAB] oxyCODONE /ACETAMINOPHEN [Percocet 1 tab PO Q4H PRN #14 tablet 03/17/18 Unknown Rx 5/325 mg] Gabapentin 300 mg PO Q8HR #90 capsule 04/21/19 Unknown Rx Metformin HCl [metFORMIN] 1,000 mg PO BID #60 tablet 04/21/19 Unknown Rx oxyCODONE /ACETAMINOPHEN [Percocet 1 tab PO Q6HR PRN #10 tablet 04/21/19 Unknown Rx 5/325] Cyclobenzaprine [Flexeril 10 MG 10 mg PO QHS 14 Days #14 tablet 05/07/19 Unknown Rx TAB] Ketorolac [Toradol] 10 mg PO Q6H PRN #20 tablet 05/21/19 Unknown Rx methOCARBAMOL [Robaxin TAB] 750 mg PO Q8H #20 tablet 05/21/19 Unknown Rx ALBUTEROL NEB's [Proventil 0.083% 2.5 mg IH Q6H PRN #25 vial 08/23/19 Unknown Rx NEBS] Acetaminophen [Acetaminophen TAB] 1,000 mg PO Q6HR PRN #30 tablet 08/23/19 Unknown Rx Famotidine [Pepcid] 20 mg PO BID 7 Days #14 tablet 08/23/19 Unknown Rx Nebulizer [Aeroneb Go Nebulizer] 1 each MC PRN PRN #1 each 08/23/19 Unknown Rx diphenhydrAMINE [Benadryl CAP] 25 mg PO Q8HR PRN #30 capsule 08/23/19 Unknown Rx predniSONE [Deltasone] 40 mg PO QDAY 5 Days #10 tablet 08/23/19 Unknown Rx Ondansetron [Zofran Odt] 4 mg PO Q8HR PRN #14 tab.rapdis 07/07/20 Unknown Rx Cyclobenzaprine [Flexeril] 10 mg PO TID PRN #12 tablet 11/28/20 Unknown Rx Furosemide [Lasix] 20 mg PO QDAY #7 tablet 03/27/21 Unknown Rx traMADoL [Ultram] 50 mg PO Q6HR PRN #10 tablet 03/27/21 Unknown Rx ED Review of Systems ROS: Stated complaint: CHEST & ABDOMINAL PAIN/HUONG Other details as noted in HPI Constitutional: denies: fever Eyes: denies: eye pain ENT: denies: throat pain Respiratory: shortness of breath. denies: cough, SOB with exertion Cardiovascular: chest pain. denies: dyspnea on exertion Endocrine: no symptoms reported Gastrointestinal: denies: abdominal pain Genitourinary: denies: dysuria Musculoskeletal: denies: back pain Neurological: denies: headache Physical Exam - Physical Exam Vital Signs: Vital Signs 03/27/21 06:10 Temperature 98.5 F Pulse Rate 103 H Respiratory 20 Rate Blood Pressure 114/80 [Right] O2 Sat by Pulse 99 Oximetry Physical Exam: GENERAL: The patient is well-developed well-nourished female lying on stretcher not appearing to be in acute distress. [] HEENT: Normocephalic. Atraumatic. Extraocular motions are intact. Patient has moist mucous membranes. NECK: Supple. Trachea midline CHEST/LUNGS: Clear to auscultation. There is no respiratory distress noted. HEART/CARDIOVASCULAR: Regular. There is no tachycardia. There is no gallop rub or murmur. 2+ DPs bilaterally. Normal capillary refill toes bilaterally ABDOMEN: Abdomen is soft, nontender. Patient has normal bowel sounds. There is no abdominal distention. SKIN: There is no rash. There is 1+ bilateral lower extremity pitting edema. There is no diaphoresis. NEURO: The patient is awake, alert, and oriented. The patient is cooperative. The patient has no focal neurologic deficits. The patient has normal speech. GCS 15 MUSCULOSKELETAL: There is no evidence of acute injury. ED Course Vital Signs 03/27/21 06:10 Temperature 98.5 F Pulse Rate 103 H Respiratory 20 Rate Blood Pressure 114/80 [Right] O2 Sat by Pulse 99 Oximetry ED Medical Decision Making - Lab Data Result diagrams: 03/27/21 06:27 03/27/21 06:27 Laboratory Tests 03/27/21 03/27/21 03/27/21 06:27 06:27 06:27 WBC 6.8 RBC 4.76 Hgb 14.5 H Hct 43.6 H MCV 92 MCH 30 MCHC 33 RDW 13.2 Plt Count 368 Lymph % (Auto) 30.5 [place] % (Auto) 7.2 Eos % (Auto) 1.3 Baso % (Auto) 0.3 Lymph # (Auto) 2.1 [place] # (Auto) 0.5 Eos # (Auto) 0.1 Baso # (Auto) 0.0 Seg Neutrophils % 60.7 Seg Neutrophils # 4.2 D-Dimer Sodium 138 Potassium 3.9 Chloride 98.5 Carbon Dioxide 28 Anion Gap 15 BUN 8 Creatinine 0.5 L Estimated GFR > 60 BUN/Creatinine Ratio 16 Glucose 246 H Calcium 8.8 Total Bilirubin 0.30 AST 126 H ALT 136 H Alkaline Phosphatase 286 H Troponin T < 0.010 NT-Pro-B Natriuret Pep Total Protein 7.1 Albumin 3.6 L Albumin/Globulin Ratio 1.0 Lipase 11 L HCG, Qual Negative Urine Color Urine Turbidity Urine pH Ur Specific [place] Urine Protein Urine Glucose (UA) Urine Ketones Urine Blood Urine Nitrite Urine Bilirubin Urine Urobilinogen Ur Leukocyte Esterase Urine WBC (Auto) Urine RBC (Auto) U Epithel Cells (Auto) Urine Mucus 03/27/21 03/27/21 03/27/21 06:27 06:27 Unknown WBC RBC Hgb Hct MCV MCH MCHC RDW Plt Count Lymph % (Auto) [place] % (Auto) Eos % (Auto) Baso % (Auto) Lymph # (Auto) [place] # (Auto) Eos # (Auto) Baso # (Auto) Seg Neutrophils % Seg Neutrophils # D-Dimer 333.65 H Sodium Potassium Chloride Carbon Dioxide Anion Gap BUN Creatinine Estimated GFR BUN/Creatinine Ratio Glucose Calcium Total Bilirubin AST ALT Alkaline Phosphatase Troponin T NT-Pro-B Natriuret Pep 51.70 Total Protein Albumin Albumin/Globulin Ratio Lipase HCG, Qual Urine Color Yellow Urine Turbidity Clear Urine pH 5.0 Ur Specific [place] 1.021 Urine Protein <15 mg/dl Urine Glucose (UA) Neg Urine Ketones Neg Urine Blood Neg Urine Nitrite Neg Urine Bilirubin Neg Urine Urobilinogen 4.0 Ur Leukocyte Esterase Neg Urine WBC (Auto) 1.0 Urine RBC (Auto) 1.0 U Epithel Cells (Auto) 5.0 Urine Mucus Few - EKG Data -: EKG Interpreted by Me EKG shows normal: sinus rhythm Rate: normal - EKG Data When compared to previous EKG there are: previous EKG unavailable Interpretation: other (No ischemic changes seen) - Radiology Data Radiology results: report reviewed (Chest x-ray, CTA chest, bilateral lower extremity Dopplers), image reviewed (Chest x-ray, CTA chest, bilateral lower extremity Dopplers) interpreted by me: Chest x-ray-no definite focal infiltrates, no pneumothorax [facility] [address] [place] [address] XRay Report Signed Patient: TAY PEDRAZA MR#: [id number] : 1970 Acct:[id number] Age/Sex: 50 / F ADM Date: 03/27/21 Loc: ED Attending Dr: Ordering Physician: MEGGAN TABOR MD Date of Service: 03/27/21 Procedure(s): XR chest routine 2V Accession Number(s): [id number] cc: MEGGAN TABOR MD Fluoro Time In Minutes: CHEST 2 VIEWS INDICATION / CLINICAL INFORMATION: Chest Pain. COMPARISON: 08/21/2020 FINDINGS: SUPPORT DEVICES: None. HEART / MEDIASTINUM: No significant abnormality. LUNGS / PLEURA: Minimal atelectasis in left lower lung No pneumothorax. ADDITIONAL FINDINGS: No significant additional findings. IMPRESSION: 1. No acute findings. Signer Name: Cash Aguirre MD Signed: 03/27/2021 7:28 AM Workstation Name: [id number] Transcribed By: CW Dictated By: GISSELL AGUIRRE MD Electronically Authenticated By: GISSELL AGUIRRE MD Signed Date/Time: 03/27/21727 DD/ 7 TD/TT: Print Cancel [address] [address] Vascular Lab Report Signed Patient: TAY PEDRAZA MR#: [id number] : 1970 Acct:[id number] Age/Sex: 50 / F ADM Date: 03/27/21 Loc: ED Attending Dr: Ordering Physician: MEGGAN TABOR MD Date of Service: 03/27/21 Procedure(s): VL venous duplex LE BILAT Accession Number(s): [id number] cc: MEGGAN TABOR MD DUPLEX DOPPLER LOWER EXTREMITY VEINS, BILATERAL INDICATION / CLINICAL INFORMATION: Pain and swelling. TECHNIQUE: Duplex doppler imaging was performed through the veins of both lower extremities using venous compression and other maneuvers. COMPARISON: 11/29/2019 FINDINGS: RIGHT COMMON FEMORAL VEIN: Negative. RIGHT FEMORAL VEIN: Negative. RIGHT POPLITEAL VEIN: Negative. RIGHT CALF VEINS: Negative. LEFT COMMON FEMORAL VEIN: Negative. LEFT FEMORAL VEIN: Negative. LEFT POPLITEAL VEIN: Negative. LEFT CALF VEINS: Negative. ADDITIONAL FINDINGS: None. IMPRESSION: 1. No sonographic evidence for DVT in either lower extremity. Signer Name: Devang Irwin MD Signed: 03/27/2021 10:37 AM Workstation Name: [id number] Transcribed By: AYESHA Dictated By: DEVANG IRWIN MD Electronically Authenticated By: DEVANG IRWIN MD Signed Date/Time: 1037 DD/ 1035 TD/TT: Print Cancel [facility] [address] [id number] Cat Scan Report Signed Patient: TAY PEDRAZA MR#: [id number] : 1970 Acct:[id number] Age/Sex: 50 / F ADM Date: 03/27/21 Loc: ED Attending Dr: Ordering Physician: MEGAGN TABOR MD Date of Service: 03/27/21 Procedure(s): CT angio chest Accession Number(s): [id number] cc: MEGGAN TABOR MD CTA CHEST WITH IV CONTRAST INDICATION: Pleurisy, shortness of breath 100 ml omni 350 . TECHNIQUE: Axial CT images were obtained through the chest after injection of 100 mL Omnipaque 350 IV contrast. 3 plane MIP reconstructions were produced. All CT scans at this location are performed using CT dose reduction for ALARA by means of automated exposure control. COMPARISON: None available. FINDINGS: Pulmonary Arteries: No pulmonary emboli. Lungs: No significant abnormality. Trachea and Bronchi: No significant abnormality. Heart and Pericardium: No significant abnormality. Vasculature: No significant abnormality. Lymphatics: No lymphaden opathy. Additional Findings: None. Upper Abdomen: Tiny nonobstructing right intrarenal stone. Skeletal Structures: No acute findings or aggressive bone lesions. IMPRESSION: 1. No CT evidence for pulmonary embolism. 2. No acute findings. Signer Name: Feng Braun MD Signed: 03/27/2021 9:19 AM Workstation Name: [id number] Transcribed By: PARAMJIT Dictated By: Feng Braun MD Electronically Authenticated By: Feng Braun MD Signed Date/Time: 03/27/21918 DD/ TD/TT: Print Cancel - Differential Diagnosis CHF, PE, DVTs, hypoalbuminemia, Critical care attestation.: If time is entered above; I have spent that time in minutes in the direct care of this critically ill patient, excluding procedure time. ED Disposition Clinical Impression: Peripheral edema, Pleurisy, Elevated LFTs Disposition: HOME / SELF CARE / HOMELESS Is pt being admited?: No Does the pt Need Aspirin: No Condition: Stable Instructions: Pleurisy, Peripheral Edema Additional Instructions: Return to the emergency department should you develop worsening symptoms, inability to tolerate food or liquids, high fever or any other concerns Prescriptions: Furosemide [Lasix] 20 mg PO QDAY #7 tablet traMADoL [Ultram] 50 mg PO Q6HR PRN #10 tablet PRN Reason: Pain Referrals: SETH TOSCANO [Other] - 3-5 Days CASSI BOGGS MD [Staff Physician] - 3-5 Days (Dr. Boggs is a wage adjuster. Please follow-up with him for further evaluation of your elevated liver function tests) Time of Disposition: 10:53 Heart Score - HEART Score History: Slightly suspicious EKG: Normal Age: 45-65 Risk factors: > 3 risk factors or hx of atherosclerotic disease Troponin: < normal limit HEART Score: 3 - EKG Read Time Time EKG Completed: 06:17 EKG Read Time: 06:19
[2021-03-27 07:13] LABS: Alanine Aminotransferase 136 units/L (7-56); Albumin 3.6 g/dL (3.9-5); Blood Urea Nitrogen 8 mg/dL (7-17); Calcium 8.8 mg/dL (8.4-10.2); Hemolysis Index 4
[2021-03-27 07:16] LABS: BUN/Creatinine Ratio 16
--- NOTE | 2021-03-27 07:33 | XRay Report ---
CHEST 2 VIEWS INDICATION / CLINICAL INFORMATION: Chest Pain. COMPARISON: 08/21/2020 FINDINGS: SUPPORT DEVICES: None. HEART / MEDIASTINUM: No significant abnormality. LUNGS / PLEURA: Minimal atelectasis in left lower lung No pneumothorax. ADDITIONAL FINDINGS: No significant additional findings. IMPRESSION: 1. No acute findings. Signer Name: Cash Aguirre MD Signed: 03/27/2021 7:28 AM Workstation Name: [id number]
[2021-03-27 07:54] LABS: Bilirubin,Urine NEG (Negative); Blood,Urine NEG (Negative); Color,Urine Yellow (Yellow); Mucus,Urine FEW /HPF; Protein,Urine <15 mg/dL mg/dL (Negative)
--- NOTE | 2021-03-27 09:24 | Cat Scan Report ---
CTA CHEST WITH IV CONTRAST INDICATION: Pleurisy, shortness of breath 100 ml omni 350 . TECHNIQUE: Axial CT images were obtained through the chest after injection of 100 mL Omnipaque 350 IV contrast. 3 plane MIP reconstructions were produced. All CT scans at this location are performed using CT dose reduction for ALARA by means of automated exposure control. COMPARISON: None available. FINDINGS: Pulmonary Arteries: No pulmonary emboli. Lungs: No significant abnormality. Trachea and Bronchi: No significant abnormality. Heart and Pericardium: No significant abnormality. Vasculature: No significant abnormality. Lymphatics: No lymphadenopathy. Additional Findings: None. Upper Abdomen: Tiny nonobstructing right intrarenal stone. Skeletal Structures: No acute findings or aggressive bone lesions. IMPRESSION: 1. No CT evidence for pulmonary embolism. 2. No acute findings. Signer Name: Feng Braun MD Signed: 03/27/2021 9:19 AM Workstation Name: [id number]
[2021-03-27 09:31] VITALS: BP 126/68
--- NOTE | 2021-03-27 10:47 | Vascular Lab Report ---
DUPLEX DOPPLER LOWER EXTREMITY VEINS, BILATERAL INDICATION / CLINICAL INFORMATION: Pain and swelling. TECHNIQUE: Duplex doppler imaging was performed through the veins of both lower extremities using venous edwin isaac and other maneuvers. COMPARISON: 11/29/2019 FINDINGS: RIGHT COMMON FEMORAL VEIN: Negative. RIGHT FEMORAL VEIN: Negative. RIGHT POPLITEAL VEIN: Negative. RIGHT CALF VEINS: Negative. LEFT COMMON FEMORAL VEIN: Negative. LEFT FEMORAL VEIN: Negative. LEFT POPLITEAL VEIN: Negative. LEFT CALF VEINS: Negative. ADDITIONAL FINDINGS: None. IMPRESSION: 1. No sonographic evidence for DVT in either lower extremity. Signer Name: Isidoro Irwin MD Signed: 03/27/2021 10:37 AM Workstation Name: [id number]
--- NOTE | 2021-03-27 17:48 | Electrocardiograph Report ---
[facility] Test Date: 2021-03-27 Test Time: 06:17:26 Pat Name: TAY PEDRAZA Department: Room: Gender: F [employer]: : 1970 Requested By: MEGGAN TABOR Order Number: [id number] Reading MD: Mariza Rivera Measurements Intervals [place] Rate: 95 P: 73 [place]: 152 QRS: 39 QRSD: 87 T: 31 QT: 354 QTc: 445 Interpretive Statements Sinus rhythm Anterior infarct, old Compared to ECG 11/28/2020 07:35:07 Old anterior myocardial infarction is now evident Electronically Signed On 03-27-2021 17:47:52 EDT by Mariza Rivera
== END 2021-03-27 11:04 | disposition home or self-care (01) ==
LOC: ED 06:07
DX: R60.0 Localized edema (principal); R07.81 Pleurodynia; R94.5 Abnormal results of liver function studies; I10 Essential (primary) hypertension; E11.9 Type 2 diabetes mellitus without complications; M19.90 Unspecified osteoarthritis, unspecified site; M79.7 Fibromyalgia; Z98.890 Other specified postprocedural states; Z87.891 Personal history of nicotine dependence; Z88.6 Allergy status to analgesic agent; Z79.899 Other long term (current) drug therapy
CPT/HCPCS: 36415; 71046; 71275; 80053; 81001; 83690; 83880; 84484; 84703; 85025; 85379; 93005; 93970; 99284; Q9967

== ENCOUNTER 2021-05-14 21:29 | Emergency (ER) | payer OTHER ==
[2021-05-14] MEDS ORDERED: SODIUM CHLORIDE 0.9% 1000 ML 1,000 ML IV ONE ×2 (22:08→22:29)
[2021-05-14] MEDS ORDERED: ONDANSETRON 4 MG/2 ML INJ IV ONE (22:30)
[2021-05-14] MEDS ORDERED: MORPHINE 4 MG/1 ML INJ IV ONE (22:30)
--- NOTE | 2021-05-14 22:50 | Emergency Department Report ---
ED Palpitations HPI - General Chief Complaint: Hyperglycemia Stated Complaint: HIGH BGL/PALPITATIONS Time Seen by Provider: 05/14/21 22:04 Source: patient, old records reviewed Mode of arrival: Ambulatory Limitations: No Limitations - History of Present Illness Initial Comments: 50-year-old female presents to the hospital complaining of palpitations and elevated glucose. Patient has a history of diabetes currently on insulin, hypertension, and fibromyalgia. She states she has been having ongoing lower extremity pain and swelling with right great toe pain. Patient states she has shocking pains extending from her feet going up throughout her whole body. Patient went to [facility] yesterday and was treated with steroids and prescribed doxycycline for a "great toe infection secondary to a bug bite". Today patient saw her db2 systems programmer who states that she was prescribed the wrong antibiotic. He provided a "lidocaine shot" to help with the pain and suggested that she received outpatient evaluation with senior bookkeeper to rule out lupus. Patient was seen in March for lower extremity swelling and states symptoms have been ongoing since then. Patient suspects that the steroid provided at [facility] has caused her glucose to increase. Patient was sleeping when she woke up with sudden onset of palpitations. She also fell asleep while eating her meal. Her sugar was 500 but patient took her Levemir 45 units her glucose only went down to 498. Patient states she also saw her planting material unloader earlier today and did not take her Cardizem CD 180 mg capsule extended release 24-hour prior to visit. Her heart rate was 125 at the doctor's office that she was provided an unknown pill for her heart rate with improvement prior to discharge. Patient was instructed to restart her Cardizem at 4 AM tomorrow. Patient denies chest pain, shortness of breath, or fever. Patient states she is also being evaluated by vascular physician. Patient is also on gabapentin. Patient currently complaining of moderate to body pain It is noted that during her March 2021 ED visit for leg edema she had negative Doppler exams for DVT of both extremity and a CT angiogram chest negative for pulmonary embolism - Related Data Home Medications Medication Instructions Recorded Confirmed Last Taken Gabapentin 900 mg PO Q8HR 03/13/18 03/13/18 Unknown Milnacipran HCl [Savella] 50 mg PO BID 03/13/18 03/13/18 Unknown methOCARBAMOL [Robaxin TAB] 750 mg PO QHS 03/13/18 03/13/18 Unknown Previous Rx's Medication Instructions Recorded Last Taken Type Furosemide [Lasix TAB] 20 mg PO QDAY #30 tablet 02/21/15 Unknown Rx Famotidine [Pepcid] 20 mg PO BID #14 tablet 11/23/17 Unknown Rx Insulin Lispro [HumaLOG VIAL] 0 units SQ AC #1 vial 11/23/17 Unknown Rx Lispro Insulin [HumaLOG] 10 unit SUB-Q AC #1 vial 11/23/17 Unknown Rx Lispro Insulin [HumaLOG] 13 unit SUB-Q AC #1 vial 11/25/17 Unknown Rx Insulin Glargine [Lantus VIAL] 42 units SUB-Q QHS #1 vial 03/17/18 Unknown Rx Sulfamethoxazole/Trimethoprim 2 each PO BID 10 Days tablet 03/17/18 Unknown Rx [Bactrim DS TAB] oxyCODONE /ACETAMINOPHEN [Percocet 1 tab PO Q4H PRN #14 tablet 03/17/18 Unknown Rx 5/325 mg] Gabapentin 300 mg PO Q8HR #90 capsule 04/21/19 Unknown Rx Metformin HCl [metFORMIN] 1,000 mg PO BID #60 tablet 04/21/19 Unknown Rx oxyCODONE /ACETAMINOPHEN [Percocet 1 tab PO Q6HR PRN #10 tablet 04/21/19 Unknown Rx 5/325] Cyclobenzaprine [Flexeril 10 MG 10 mg PO QHS 14 Days #14 tablet 05/07/19 Unknown Rx TAB] Ketorolac [Toradol] 10 mg PO Q6H PRN #20 tablet 05/21/19 Unknown Rx methOCARBAMOL [Robaxin TAB] 750 mg PO Q8H #20 tablet 05/21/19 Unknown Rx ALBUTEROL NEB's [Proventil 0.083% 2.5 mg IH Q6H PRN #25 vial 08/23/19 Unknown Rx NEBS] Acetaminophen [Acetaminophen TAB] 1,000 mg PO Q6HR PRN #30 tablet 08/23/19 Unknown Rx Famotidine [Pepcid] 20 mg PO BID 7 Days #14 tablet 08/23/19 Unknown Rx Nebulizer [Aeroneb Go Nebulizer] 1 each MC PRN PRN #1 each 08/23/19 Unknown Rx diphenhydrAMINE [Benadryl CAP] 25 mg PO Q8HR PRN #30 capsule 08/23/19 Unknown Rx predniSONE [Deltasone] 40 mg PO QDAY 5 Days #10 tablet 08/23/19 Unknown Rx Ondansetron [Zofran Odt] 4 mg PO Q8HR PRN #14 tab.rapdis 07/07/20 Unknown Rx Cyclobenzaprine [Flexeril] 10 mg PO TID PRN #12 tablet 11/28/20 Unknown Rx Furosemide [Lasix] 20 mg PO QDAY #7 tablet 03/27/21 Unknown Rx traMADoL [Ultram] 50 mg PO Q6HR PRN #10 tablet 03/27/21 Unknown Rx Allergies Allergy/AdvReac Type Severity Reaction Status Date / Time amoxicillin Allergy Hives Verified 05/14/21 22:05 aspirin Allergy Vomiting Verified 11/28/20 07:52 ED Review of Systems ROS: Stated complaint: HIGH BGL/PALPITATIONS Other details as noted in HPI Comment: All other systems reviewed and negative ED Past Medical Hx - Past Medical History Hx Hypertension: Yes Hx Diabetes: Yes Hx Liver Disease: No Hx Renal Disease: No Hx Sickle Cell Disease: No Hx Arthritis: Yes Hx Seizures: No Hx Asthma: No Hx COPD: No Additional medical history: fibromyalgia - Surgical History Hx Pacemaker: No Hx Internal Defibrillator: No Hx Cholecystectomy: Yes Additional Surgical History: c sect - Social History Smoking Status: Former Smoker (None x4 years) Substance Use Type: None (Denies illicit drug use) - Medications Home Medications: Home Medications Medication Instructions Recorded Confirmed Last Taken Type Furosemide [Lasix TAB] 20 mg PO QDAY #30 tablet 02/21/15 Unknown Rx Famotidine [Pepcid] 20 mg PO BID #14 tablet 11/23/17 Unknown Rx Insulin Lispro [HumaLOG VIAL] 0 units SQ AC #1 vial 11/23/17 Unknown Rx Lispro Insulin [HumaLOG] 10 unit SUB-Q AC #1 vial 11/23/17 Unknown Rx Lispro Insulin [HumaLOG] 13 unit SUB-Q AC #1 vial 11/25/17 Unknown Rx Gabapentin 900 mg PO Q8HR 03/13/18 03/13/18 Unknown History Milnacipran HCl [Savella] 50 mg PO BID 03/13/18 03/13/18 Unknown History methOCARBAMOL [Robaxin TAB] 750 mg PO QHS 03/13/18 03/13/18 Unknown History Insulin Glargine [Lantus VIAL] 42 units SUB-Q QHS #1 vial 03/17/18 Unknown Rx Sulfamethoxazole/Trimethoprim 2 each PO BID 10 Days tablet 03/17/18 Unknown Rx [Bactrim DS TAB] oxyCODONE /ACETAMINOPHEN [Percocet 1 tab PO Q4H PRN #14 tablet 03/17/18 Unknown Rx 5/325 mg] Gabapentin 300 mg PO Q8HR #90 capsule 04/21/19 Unknown Rx Metformin HCl [metFORMIN] 1,000 mg PO BID #60 tablet 04/21/19 Unknown Rx oxyCODONE /ACETAMINOPHEN [Percocet 1 tab PO Q6HR PRN #10 tablet 04/21/19 Unknown Rx 5/325] Cyclobenzaprine [Flexeril 10 MG 10 mg PO QHS 14 Days #14 tablet 05/07/19 Unknown Rx TAB] Ketorolac [Toradol] 10 mg PO Q6H PRN #20 tablet 05/21/19 Unknown Rx methOCARBAMOL [Robaxin TAB] 750 mg PO Q8H #20 tablet 05/21/19 Unknown Rx ALBUTEROL NEB's [Proventil 0.083% 2.5 mg IH Q6H PRN #25 vial 08/23/19 Unknown Rx NEBS] Acetaminophen [Acetaminophen TAB] 1,000 mg PO Q6HR PRN #30 tablet 08/23/19 Unknown Rx Famotidine [Pepcid] 20 mg PO BID 7 Days #14 tablet 08/23/19 Unknown Rx Nebulizer [Aeroneb Go Nebulizer] 1 each MC PRN PRN #1 each 08/23/19 Unknown Rx diphenhydrAMINE [Benadryl CAP] 25 mg PO Q8HR PRN #30 capsule 08/23/19 Unknown Rx predniSONE [Deltasone] 40 mg PO QDAY 5 Days #10 tablet 08/23/19 Unknown Rx Ondansetron [Zofran Odt] 4 mg PO Q8HR PRN #14 tab.rapdis 07/07/20 Unknown Rx Cyclobenzaprine [Flexeril] 10 mg PO TID PRN #12 tablet 11/28/20 Unknown Rx Furosemide [Lasix] 20 mg PO QDAY #7 tablet 03/27/21 Unknown Rx traMADoL [Ultram] 50 mg PO Q6HR PRN #10 tablet 03/27/21 Unknown Rx ED Physical Exam - General Limitations: No Limitations - Other Other exam information: General: No acute distress Head: Atraumatic Eyes: normal appearance ENT: Moist mucous membranes Neck: Normal appearance, no midline tenderness Chest: Clear to auscultation bilaterally CV: Tachycardic 120s regular rhythm Abdomen: Soft, normal bowel sounds, nontender, nondistended, no rebound or guarding Back: Normal inspection Extremity: Mild bilateral lower extremity edema, no calf tenderness, no warmth, erythema, or drainage to right great toe, 2+ DP pulse Neuro: Alert O x 3, no facial asymmetry, speech clear, no gross motor sensory deficit Psych: Appropriate behavior Skin: No rash ED Course Vital Signs 05/14/21 05/15/21 22:05 03:19 Temperature 98.5 F 98.0 F Pulse Rate 124 H 99 H Respiratory 12 18 Rate Blood Pressure 130/71 150/88 [Right] O2 Sat by Pulse 99 97 Oximetry ED Medical Decision Making - Lab Data Result diagrams: 05/14/21 22:33 05/14/21 22:33 Lab Results 05/14/21 05/14/21 05/14/21 Range/Units 21:59 22:33 22:33 WBC 15.1 H (4.5-11.0) K/mm3 RBC 5.01 (3.65-5.03) M/mm3 Hgb 15.2 H (10.1-14.3) gm/dl Hct 45.7 H (30.3-42.9) % MCV 91 (79-97) fl MCH 30 (28-32) pg MCHC 33 (30-34) % RDW 12.4 L (13.2-15.2) % Plt Count 378 (140-440) K/mm3 Lymph % (Auto) 10.2 L (13.4-35.0) % Rock % (Auto) 7.2 (0.0-7.3) % Eos % (Auto) 0.0 (0.0-4.3) % Baso % (Auto) 0.2 (0.0-1.8) % Lymph # (Auto) 1.6 (1.2-5.4) K/mm3 Rock # (Auto) 1.1 H (0.0-0.8) K/mm3 Eos # (Auto) 0.0 (0.0-0.4) K/mm3 Baso # (Auto) 0.0 (0.0-0.1) K/mm3 Seg Neutrophils % 82.4 H (40.0-70.0) % Seg Neutrophils # 12.5 H (1.8-7.7) K/mm3 VBG pH (7.320-7.420) Sodium 138 (137-145) mmol/L Potassium 3.8 (3.6-5.0) mmol/L Chloride 96.3 L (98-107) mmol/L Carbon Dioxide 24 (22-30) mmol/L Anion Gap 22 mmol/L BUN 16 (7-17) mg/dL Creatinine 0.6 (0.6-1.2) mg/dL Estimated GFR > 60 ml/min BUN/Creatinine Ratio 27 % Glucose 375 H (65-100) mg/dL POC Glucose 410 H (70-105) mg/dL Calcium 10.0 (8.4-10.2) mg/dL TSH (0.270-4.200) mlU/mL Free T4 (0.76-1.46) ng/dL Urine Color (Yellow) Urine Turbidity (Clear) Urine pH (5.0-7.0) Ur Specific [place] (1.003-1.030) Urine Protein (Negative) mg/dL Urine Glucose (UA) (Negative) mg/dL Urine Ketones (Negative) mg/dL Urine Blood (Negative) Urine Nitrite (Negative) Urine Bilirubin (Negative) Urine Urobilinogen (<2.0) mg/dL Ur Leukocyte Esterase (Negative) Urine WBC (Auto) (0.0-6.0) /HPF Urine RBC (Auto) (0.0-6.0) /HPF U Epithel Cells (Auto) (0-13.0) /HPF Urine Mucus /HPF 05/14/21 05/14/21 05/14/21 Range/Units 22:33 22:33 Unknown WBC (4.5-11.0) K/mm3 RBC (3.65-5.03) M/mm3 Hgb (10.1-14.3) gm/dl Hct (30.3-42.9) % MCV (79-97) fl MCH (28-32) pg MCHC (30-34) % RDW (13.2-15.2) % Plt Count (140-440) K/mm3 Lymph % (Auto) (13.4-35.0) % Rock % (Auto) (0.0-7.3) % Eos % (Auto) (0.0-4.3) % Baso % (Auto) (0.0-1.8) % Lymph # (Auto) (1.2-5.4) K/mm3 Rock # (Auto) (0.0-0.8) K/mm3 Eos # (Auto) (0.0-0.4) K/mm3 Baso # (Auto) (0.0-0.1) K/mm3 Seg Neutrophils % (40.0-70.0) % Seg Neutrophils # (1.8-7.7) K/mm3 VBG pH 7.392 (7.320-7.420) Sodium (137-145) mmol/L Potassium (3.6-5.0) mmol/L Chloride (98-107) mmol/L Carbon Dioxide (22-30) mmol/L Anion Gap mmol/L BUN (7-17) mg/dL Creatinine (0.6-1.2) mg/dL Estimated GFR ml/min BUN/Creatinine Ratio % Glucose (65-100) mg/dL POC Glucose (70-105) mg/dL Calcium (8.4-10.2) mg/dL TSH 0.332 (0.270-4.200) mlU/mL Free T4 1.07 (0.76-1.46) ng/dL Urine Color Yellow (Yellow) Urine Turbidity Clear (Clear) Urine pH 5.0 (5.0-7.0) Ur Specific [place] 1.022 (1.003-1.030) Urine Protein <15 mg/dl (Negative) mg/dL Urine Glucose (UA) >=500 (Negative) mg/dL Urine Ketones Neg (Negative) mg/dL Urine Blood Neg (Negative) Urine Nitrite Neg (Negative) Urine Bilirubin Neg (Negative) Urine Urobilinogen < 2.0 (<2.0) mg/dL Ur Leukocyte Esterase Neg (Negative) Urine WBC (Auto) < 1.0 (0.0-6.0) /HPF Urine RBC (Auto) 1.0 (0.0-6.0) /HPF U Epithel Cells (Auto) 1.0 (0-13.0) /HPF Urine Mucus Few /HPF 12/15/21 12/15/21 Range/Units 00:44 02:20 WBC (4.5-11.0) K/mm3 RBC (3.65-5.03) M/mm3 Hgb (10.1-14.3) gm/dl Hct (30.3-42.9) % MCV (79-97) fl MCH (28-32) pg MCHC (30-34) % RDW (13.2-15.2) % Plt Count (140-440) K/mm3 Lymph % (Auto) (13.4-35.0) % Rock % (Auto) (0.0-7.3) % Eos % (Auto) (0.0-4.3) % Baso % (Auto) (0.0-1.8) % Lymph # (Auto) (1.2-5.4) K/mm3 Rock # (Auto) (0.0-0.8) K/mm3 Eos # (Auto) (0.0-0.4) K/mm3 Baso # (Auto) (0.0-0.1) K/mm3 Seg Neutrophils % (40.0-70.0) % Seg Neutrophils # (1.8-7.7) K/mm3 VBG pH (7.320-7.420) Sodium (137-145) mmol/L Potassium (3.6-5.0) mmol/L Chloride (98-107) mmol/L Carbon Dioxide (22-30) mmol/L Anion Gap mmol/L BUN (7-17) mg/dL Creatinine (0.6-1.2) mg/dL Estimated GFR ml/min BUN/Creatinine Ratio % Glucose (65-100) mg/dL POC Glucose 250 H 185 H (70-105) mg/dL Calcium (8.4-10.2) mg/dL TSH (0.270-4.200) mlU/mL Free T4 (0.76-1.46) ng/dL Urine Color (Yellow) Urine Turbidity (Clear) Urine pH (5.0-7.0) Ur Specific [place] (1.003-1.030) Urine Protein (Negative) mg/dL Urine Glucose (UA) (Negative) mg/dL Urine Ketones (Negative) mg/dL Urine Blood (Negative) Urine Nitrite (Negative) Urine Bilirubin (Negative) Urine Urobilinogen (<2.0) mg/dL Ur Leukocyte Esterase (Negative) Urine WBC (Auto) (0.0-6.0) /HPF Urine RBC (Auto) (0.0-6.0) /HPF U Epithel Cells (Auto) (0-13.0) /HPF Urine Mucus /HPF - EKG Data -: EKG Interpreted by Me (anteroseptal q waves) EKG shows normal: sinus rhythm, intervals (normal), QRS complexes (no prolongateion), ST-T waves (no stemi) Rate: tachycardia (117) - EKG Data When compared to previous EKG there are: no significant change - Medical Decision Making 50-year female presents to the hospital complaining of sudden onset of palpitations and persistent hyperglycemia despite taking her Lantus prior to arrival. Patient was recently put on Decadron which could be the source of her leukocytosis. Her right great toe does not appear to be infected at this time. Labs do not reveal any signs of DKA. Patient's glucose improved with IV hydration without additional insulin therapy. Patient heart rate also improved with IV fluids and after receiving pain medication and a dose of her Cardizem p.o. patient will be discharged to continue her current medications as prescribed with exception of steroids. Patient reports feeling better prior to d/c Patient has normal thyroid function test, no signs of anemia with sepsis at this time. Her extremity complaints appear to be chronic and ongoing with recent work-up and she has appointments with multiple specialists including senior bookkeeper, planting material unloader, db2 systems programmer, and vascular physician for her ongoing complaints Critical Care Time: No Critical care attestation.: If time is entered above; I have spent that time in minutes in the direct care of this critically ill patient, excluding procedure time. ED Disposition Clinical Impression: Hyperglycemia due to type 2 diabetes mellitus, Palpitations Disposition: HOME / SELF CARE / HOMELESS Is pt being admited?: No Does the pt Need Aspirin: No Condition: Stable Instructions: Insulin Treatment for Diabetes Mellitus, Palpitations, Diabetes Mellitus Type 2 in Adults (ED) Additional Instructions: Take the medication as prescribed. Do not recommend that you take steroids at this time. Follow-up with your doctor or doctor/clinic provided. Return if symptoms worsen as indicated by your discharge instructions. Referrals: PRIMARY CARE, [Primary Care Provider] - 3-5 Days Forms: Work/School Release Form(ED) Time of Disposition: 03:47
[2021-05-14 22:52] LABS: Basophils % (Auto) 0.2 % (0.0-1.8); Hematocrit 45.7 % (30.3-42.9); Hemoglobin 15.2 gm/dl (10.1-14.3); Lymphocytes # (Auto) 1.6 K/mm3 (1.2-5.4); Lymphocytes % (Auto) 10.2 % (13.4-35.0); Mean Corpuscular HGB Conc 33 % (30-34); Mean Corpuscular Volume 91 fl (79-97); Monocytes # (Auto) 1.1 K/mm3 (0.0-0.8); Monocytes % (Auto) 7.2 % (0.0-7.3); Platelet Count 378 K/mm3 (140-440); Red Blood Count 5.01 M/mm3 (3.65-5.03); Red Cell Distribution Width 12.4 % (13.2-15.2)
[2021-05-15] MEDS ORDERED: dilTIAZem CD 180 MG CAP PO ONE (00:42)
[2021-05-15 01:55] LABS: Blood Urea Nitrogen 16 mg/dL (7-17); Hemolysis Index 6
[2021-05-15 02:01] LABS: Free T4 (Free Thyroxine) 1.07 ng/dL (0.76-1.46)
[2021-05-15] MEDS ORDERED: SODIUM CHLORIDE 0.9% 1000 ML 1,000 ML ONE (02:47)
[2021-05-15] MEDS ORDERED: SODIUM CHLORIDE 0.9% 1000 ML 1,000 ML IV ONE (02:53)
[2021-05-15 03:14] LABS: BUN/Creatinine Ratio 27
[2021-05-15 03:28] LABS: Bilirubin,Urine NEG (Negative); Blood,Urine NEG (Negative); Color,Urine Yellow (Yellow); Mucus,Urine FEW /HPF; Protein,Urine <15 mg/dL mg/dL (Negative); Urobilinogen,Urine < 2.0 mg/dL (<2.0); WBC,Urine < 1.0 /HPF (0.0-6.0)
[2021-05-15 04:29] VITALS: BP 138/88
--- NOTE | 2021-05-15 12:26 | Electrocardiograph Report ---
[facility] Test Date: 2021-05-14 Test Time: 22:09:47 Pat Name: TAY PEDRAZA Department: Room: Gender: F Supervisor Knitting: NURSE : 1970 Requested By: INEZ SUTHERLAND Order Number: [id number] Reading MD: Isaías Alaniz Measurements Intervals [place] Rate: 117 P: 64 TN: 168 QRS: 31 QRSD: 82 T: 39 QT: 320 QTc: 447 Interpretive Statements Sinus tachycardia Consider anteroseptal infarct old Compared to ECG 03/27/2021 06:17:26 Sinus rhythm no longer present Myocardial infarct finding still present Electronically Signed On 05-15-2021 12:25:58 EST by Isaías Alaniz
== END 2021-05-15 04:29 | disposition home or self-care (01) ==
LOC: ED 21:29
DX: E11.65 Type 2 diabetes mellitus with hyperglycemia (principal); R00.2 Palpitations; I10 Essential (primary) hypertension; M19.90 Unspecified osteoarthritis, unspecified site; M79.7 Fibromyalgia; Z90.49 Acquired absence of other specified parts of digestive tract; Z98.890 Other specified postprocedural states; Z87.891 Personal history of nicotine dependence; Z88.1 Allergy status to other antibiotic agents; Z88.8 Allergy status to other drugs, medicaments and biological substances
CPT/HCPCS: 36415; 80048; 81001; 82805; 82962; 84439; 84443; 85025; 93005; 96361; 96374; 96375; 99284; J2270; J2405; J7030; Q0162

== ENCOUNTER 2021-05-19 08:33 | Emergency (ER) | payer OTHER ==
[2021-05-19 09:37] VITALS: BP 114/76
[2021-05-19] MEDS ORDERED: SODIUM CHLORIDE 0.9% 1000 ML 2,000 ML IV ONE (09:52)
--- NOTE | 2021-05-19 09:56 | Event Note ---
ED Screening Note Date of service: 05/19/21 Time: 09:53 ED Screening Note: 80-year-old morbid obese -[place] female with a history of diabetes presents to the emergency room stating that her blood sugars have been elevated. Patient states on Thursday is when she started feeling sick she had a headache and abdominal pain and cold sweats. Patient states at that time she laid down and she just woke up this morning. She states that she still has not had. She is currently on Levemir and another blood sugar medication. Patient states she has not taken her insulin since Thursday. She reports that she has been confused but is oriented x3 during my visit. Patient also complains of leg cramping. She states that happens when her blood sugars are elevated. She is accompanied by her daughter as in the waiting room. This initial assessment/diagnostic orders/clinical plan/treatment(s) is/are subject to change based on patients health status, clinical progression and re- assessment by fellow clinical providers in the ED. Further treatment and workup at subsequent clinical providers discretion. Patient/guardian urged not to elope from the ED as their condition may be serious if not clinically assessed and managed. Initial orders include: CBC CMP urinalysis magnesium phosphorus, venous pH INT, stat blood sugar and 2 L of normal saline has been ordered.
[2021-05-19 10:52] LABS: Basophils % (Auto) 0.3 % (0.0-1.8); Hematocrit 51.4 % (30.3-42.9); Hemoglobin 16.9 gm/dl (10.1-14.3); Lymphocytes # (Auto) 2.9 K/mm3 (1.2-5.4); Mean Corpuscular HGB Conc 33 % (30-34); Mean Corpuscular Volume 92 fl (79-97); Monocytes # (Auto) 1.9 K/mm3 (0.0-0.8); Monocytes % (Auto) 11.8 % (0.0-7.3); Platelet Count 458 K/mm3 (140-440); Red Cell Distribution Width 12.7 % (13.2-15.2)
[2021-05-19 11:09] LABS: Alanine Aminotransferase 95 units/L (7-56); Albumin 3.8 g/dL (3.9-5); Blood Urea Nitrogen 17 mg/dL (7-17); Calcium 9.5 mg/dL (8.4-10.2); Hemolysis Index 71
[2021-05-19 11:13] LABS: BUN/Creatinine Ratio 24
[2021-05-19] MEDS ORDERED: ONDANSETRON 4 MG/2 ML INJ IV ONE (11:13)
[2021-05-19] MEDS ORDERED: ACETAMINOPHEN 500 MG TAB PO ONE (11:13)
--- NOTE | 2021-05-19 12:52 | Cat Scan Report ---
CT OF THE CHEST, ABDOMEN AND PELVIS WITHOUT CONTRAST INDICATION / CLINICAL INFORMATION: Abdominal pain. Chills. Generalized illness. TECHNIQUE: All CT scans at this location are performed using CT dose reduction for ALARA by means of automated exposure control. COMPARISON: CTA chest 03/27/[address] of the abdomen and pelvis 01/12/21. FINDINGS: CHEST: The tracheobronchial tree is normal. There is a 1 cm thin-walled cyst in the right middle lobe . The lung parenchyma is otherwise clear. There is no evidence of adenopathy or effusion. The heart s ize is normal. No coronary artery calcification is present. ABDOMEN: The gallbladder is surgically absent. The liver, spleen, bile ducts, pancreas and right adre nal gland are normal. There is a 1.8 cm left adrenal nodule which is stable. There is a small nonobst ructive calculus in the right upper kidney. The left kidney is normal. There is no evidence of bowel obstruction, wall thickening or free air. No adenopathy is present. PELVIS: There is a moderate-sized fat-containing hernia just above the umbilicus without complication . The distal ureters and urinary bladder are normal. The uterus and adnexal regions are unremarkable. There is no evidence of appendicitis or diverticulitis. No abnormal mass or fluid collection is seen . There is mild spondylosis. IMPRESSION: No acute abnormality is identified. Signer Name: Francisco Barry MD Signed: 05/19/2021 12:47 PM Workstation Name: [id number]
--- NOTE | 2021-05-19 13:32 | Emergency Department Report ---
ED General Adult HPI - General Chief complaint: Hyperglycemia Stated complaint: ELEVATED BLOOD PRESSURE, HEART RATE Time Seen by Provider: 05/19/21 11:01 Source: patient Mode of arrival: Ambulatory Limitations: No Limitations - History of Present Illness Initial comments: Complaint: I think it is my sugar." HPI: This is a 40-year-old female with history of hypertension, fibromyalgia, diabetes mellitus, gluteal abscess, peripheral neuropathy, BMI 52 who presents with elevated blood sugar for the past 3 days. She has generalized weakness, headache. She has stomach upset. Her primary care physician is affiliated with [facility]. -: Gradual, days(s) (2 days) Location: head (Headache), abdomen (Stomach upset) Severity scale (0 -10): 6 Quality: aching Consistency: constant Improves with: none Worsens with: none Associated Symptoms: other (Elevated blood sugar) - Related Data Home Medications Medication Instructions Recorded Confirmed Last Taken Gabapentin 900 mg PO Q8HR 03/13/18 03/13/18 Unknown Milnacipran HCl [Savella] 50 mg PO BID 03/13/18 03/13/18 Unknown methOCARBAMOL [Robaxin TAB] 750 mg PO QHS 03/13/18 03/13/18 Unknown Previous Rx's Medication Instructions Recorded Last Taken Type Furosemide [Lasix TAB] 20 mg PO QDAY #30 tablet 02/21/15 Unknown Rx Famotidine [Pepcid] 20 mg PO BID #14 tablet 11/23/17 Unknown Rx Insulin Lispro [HumaLOG VIAL] 0 units SQ AC #1 vial 11/23/17 Unknown Rx Lispro Insulin [HumaLOG] 10 unit SUB-Q AC #1 vial 11/23/17 Unknown Rx Lispro Insulin [HumaLOG] 13 unit SUB-Q AC #1 vial 11/25/17 Unknown Rx Insulin Glargine [Lantus VIAL] 42 units SUB-Q QHS #1 vial 03/17/18 Unknown Rx Sulfamethoxazole/Trimethoprim 2 each PO BID 10 Days tablet 03/17/18 Unknown Rx [Bactrim DS TAB] oxyCODONE /ACETAMINOPHEN [Percocet 1 tab PO Q4H PRN #14 tablet 03/17/18 Unknown Rx 5/325 mg] Gabapentin 300 mg PO Q8HR #90 capsule 04/21/19 Unknown Rx Metformin HCl [metFORMIN] 1,000 mg PO BID #60 tablet 04/21/19 Unknown Rx oxyCODONE /ACETAMINOPHEN [Percocet 1 tab PO Q6HR PRN #10 tablet 04/21/19 Unknown Rx 5/325] Cyclobenzaprine [Flexeril 10 MG 10 mg PO QHS 14 Days #14 tablet 05/07/19 Unknown Rx TAB] Ketorolac [Toradol] 10 mg PO Q6H PRN #20 tablet 05/21/19 Unknown Rx methOCARBAMOL [Robaxin TAB] 750 mg PO Q8H #20 tablet 05/21/19 Unknown Rx ALBUTEROL NEB's [Proventil 0.083% 2.5 mg IH Q6H PRN #25 vial 08/23/19 Unknown Rx NEBS] Acetaminophen [Acetaminophen TAB] 1,000 mg PO Q6HR PRN #30 tablet 08/23/19 Unknown Rx Famotidine [Pepcid] 20 mg PO BID 7 Days #14 tablet 08/23/19 Unknown Rx Nebulizer [Aeroneb Go Nebulizer] 1 each MC PRN PRN #1 each 08/23/19 Unknown Rx diphenhydrAMINE [Benadryl CAP] 25 mg PO Q8HR PRN #30 capsule 08/23/19 Unknown Rx predniSONE [Deltasone] 40 mg PO QDAY 5 Days #10 tablet 08/23/19 Unknown Rx Ondansetron [Zofran Odt] 4 mg PO Q8HR PRN #14 tab.rapdis 07/07/20 Unknown Rx Cyclobenzaprine [Flexeril] 10 mg PO TID PRN #12 tablet 11/28/20 Unknown Rx Furosemide [Lasix] 20 mg PO QDAY #7 tablet 03/27/21 Unknown Rx traMADoL [Ultram] 50 mg PO Q6HR PRN #10 tablet 03/27/21 Unknown Rx Allergies Allergy/AdvReac Type Severity Reaction Status Date / Time amoxicillin Allergy Hives Verified 05/14/21 22:05 aspirin Allergy Vomiting Verified 11/28/20 07:52 ED Review of Systems ROS: Stated complaint: ELEVATED BLOOD PRESSURE, HEART RATE Other details as noted in HPI Comment: All other systems reviewed and negative Constitutional: fever, malaise Respiratory: denies: cough, shortness of breath Gastrointestinal: abdominal pain (Stomach upset) Neurological: headache ED Past Medical Hx - Past Medical History Previous Medical History?: Yes Hx Hypertension: Yes Hx Diabetes: Yes Hx Liver Disease: No Hx Renal Disease: No Hx Sickle Cell Disease: No Hx Arthritis: Yes Hx Seizures: No Hx Asthma: No Hx COPD: No Additional medical history: fibromyalgia - Surgical History Past Surgical History?: Yes Hx Pacemaker: No Hx Internal Defibrillator: No Hx Cholecystectomy: Yes Additional Surgical History: c sect - Social History Smoking Status: Former Smoker (None x4 years) Substance Use Type: None (Denies illicit drug use) - Medications Home Medications: Home Medications Medication Instructions Recorded Confirmed Last Taken Type Furosemide [Lasix TAB] 20 mg PO QDAY #30 tablet 02/21/15 Unknown Rx Famotidine [Pepcid] 20 mg PO BID #14 tablet 11/23/17 Unknown Rx Insulin Lispro [HumaLOG VIAL] 0 units SQ AC #1 vial 11/23/17 Unknown Rx Lispro Insulin [HumaLOG] 10 unit SUB-Q AC #1 vial 11/23/17 Unknown Rx Lispro Insulin [HumaLOG] 13 unit SUB-Q AC #1 vial 11/25/17 Unknown Rx Gabapentin 900 mg PO Q8HR 03/13/18 03/13/18 Unknown History Milnacipran HCl [Savella] 50 mg PO BID 03/13/18 03/13/18 Unknown History methOCARBAMOL [Robaxin TAB] 750 mg PO QHS 03/13/18 03/13/18 Unknown History Insulin Glargine [Lantus VIAL] 42 units SUB-Q QHS #1 vial 03/17/18 Unknown Rx Sulfamethoxazole/Trimethoprim 2 each PO BID 10 Days tablet 03/17/18 Unknown Rx [Bactrim DS TAB] oxyCODONE /ACETAMINOPHEN [Percocet 1 tab PO Q4H PRN #14 tablet 03/17/18 Unknown Rx 5/325 mg] Gabapentin 300 mg PO Q8HR #90 capsule 04/21/19 Unknown Rx Metformin HCl [metFORMIN] 1,000 mg PO BID #60 tablet 04/21/19 Unknown Rx oxyCODONE /ACETAMINOPHEN [Percocet 1 tab PO Q6HR PRN #10 tablet 04/21/19 Unknown Rx 5/325] Cyclobenzaprine [Flexeril 10 MG 10 mg PO QHS 14 Days #14 tablet 05/07/19 Unknown Rx TAB] Ketorolac [Toradol] 10 mg PO Q6H PRN #20 tablet 05/21/19 Unknown Rx methOCARBAMOL [Robaxin TAB] 750 mg PO Q8H #20 tablet 05/21/19 Unknown Rx ALBUTEROL NEB's [Proventil 0.083% 2.5 mg IH Q6H PRN #25 vial 08/23/19 Unknown Rx NEBS] Acetaminophen [Acetaminophen TAB] 1,000 mg PO Q6HR PRN #30 tablet 08/23/19 Unknown Rx Famotidine [Pepcid] 20 mg PO BID 7 Days #14 tablet 08/23/19 Unknown Rx Nebulizer [Aeroneb Go Nebulizer] 1 each MC PRN PRN #1 each 08/23/19 Unknown Rx diphenhydrAMINE [Benadryl CAP] 25 mg PO Q8HR PRN #30 capsule 08/23/19 Unknown Rx predniSONE [Deltasone] 40 mg PO QDAY 5 Days #10 tablet 08/23/19 Unknown Rx Ondansetron [Zofran Odt] 4 mg PO Q8HR PRN #14 tab.rapdis 07/07/20 Unknown Rx Cyclobenzaprine [Flexeril] 10 mg PO TID PRN #12 tablet 11/28/20 Unknown Rx Furosemide [Lasix] 20 mg PO QDAY #7 tablet 03/27/21 Unknown Rx traMADoL [Ultram] 50 mg PO Q6HR PRN #10 tablet 03/27/21 Unknown Rx ED Physical Exam - General Limitations: No Limitations General appearance: alert, in no apparent distress - Head Head exam: Present: atraumatic, normocephalic - Eye Eye exam: Present: normal appearance - ENT ENT exam: Present: mucous membranes moist - Neck Neck exam: Present: normal inspection, full ROM - Respiratory Respiratory exam: Present: normal lung sounds bilaterally. Absent: respiratory distress, wheezes, rhonchi, stridor - Cardiovascular Cardiovascular Exam: Present: normal rhythm, tachycardia, normal heart sounds. Absent: systolic murmur, diastolic murmur, rubs, gallop - GI/Abdominal GI/Abdominal exam: Present: soft, normal bowel sounds. Absent: distended, tenderness, guarding, rebound - Extremities Exam Extremities exam: Present: normal inspection - Neurological Exam Neurological exam: Present: alert, oriented X3 - Psychiatric Psychiatric exam: Present: normal affect, normal mood - Skin Skin exam: Present: warm, dry, intact, normal color. Absent: rash ED Course Vital Signs 05/19/21 09:33 Temperature 98.5 F Pulse Rate 133 H Respiratory 22 Rate Blood Pressure 114/76 [Right] O2 Sat by Pulse 98 Oximetry ED Medical Decision Making - Lab Data Result diagrams: 05/19/21 10:17 05/19/21 10:17 Laboratory Results - last 24 hr 05/19/21 05/19/21 05/19/21 10:17 10:17 10:17 WBC 15.9 H RBC 5.60 H Hgb 16.9 H Hct 51.4 H MCV 92 MCH 30 MCHC 33 RDW 12.7 L Plt Count 458 H Lymph % (Auto) 18.0 Leslie % (Auto) 11.8 H Eos % (Auto) 0.0 Baso % (Auto) 0.3 Lymph # (Auto) 2.9 Leslie # (Auto) 1.9 H Eos # (Auto) 0.0 Baso # (Auto) 0.0 Seg Neutrophils % 69.9 Seg Neutrophils # 11.2 H VBG pH 7.402 Sodium 129 L D Potassium 3.7 Chloride 88.0 L Carbon Dioxide 28 Anion Gap 17 BUN 17 Creatinine 0.7 Estimated GFR > 60 BUN/Creatinine Ratio 24 Glucose 304 H Calcium 9.5 Phosphorus 2.30 L Magnesium 2.30 Total Bilirubin 0.90 AST 103 H ALT 95 H Alkaline Phosphatase 237 H Total Protein 7.5 Albumin 3.8 L Albumin/Globulin Ratio 1.0 - Radiology Data Patient Name: TAY PEDRAZA Gender: Female Date of : 1970 Referring Provider: JASON AMARAL Organization: [facility] Accession Number: [id number] Requested Date: May 19, 2021 11:12 Report Status: Final Requested Procedure: 1 Procedure Description: CT abdomen pelvis wo con Modality: CT Findings Reporting MD: Francisco Barry Dictation Time: May 19, 2021 11:47 Manager Business: Not available Detective Lieutenant Date: CT OF THE CHEST, ABDOMEN AND PELVIS WITHOUT CONTRAST INDICATION / CLINICAL INFORMATION: Abdominal pain. Chills. Generalized illness. TECHNIQUE: All CT scans at this location are performed using CT dose reduction for ALARA by means of automated exposure control. COMPARISON: CTA chest 03/27/[address] of the abdomen and pelvis 01/12/21. FINDINGS: CHEST: The tracheobronchial tree is normal. There is a 1 cm thin-walled cyst in the right middle lobe. The lung parenchyma is otherwise clear. There is no evidence of adenopathy or effusion. The heart size is normal. No coronary artery calcification is present. ABDOMEN: The gallbladder is surgically absent. The liver, spleen, bile ducts, pancreas and right adrenal gland are normal. There is a 1.8 cm left adrenal nodule which is stable. There is a small nonobstructive calculus in the right upper kidney. The left kidney is normal. There is no evidence of bowel obstruction, wall thickening or free air. No adenopathy is present. PELVIS: There is a moderate-sized fat-containing hernia just above the umbilicus without complication. The distal ureters and urinary bladder are normal. The uterus and adnexal regions are unremarkable. There is no evidence of appendicitis or diverticulitis. No abnormal mass or fluid collection is seen. There is mild spondylosis. IMPRESSION: No acute abnormality is identified. Signer Name: Francisco Barry MD Signed: 05/19/2021 11:47 AM Workstation Name: [id number] - Medical Decision Making This 50-year-old female presents with elevated blood sugar reading is remaining complaint. When I speak with patient she is concerned for body aches headache abdominal upset. With tachycardia and leukocytosis work-up indicated in order to rule out infectious source. Upon further history taking, patient takes diltiazem for palpitations. She also recently had steroid therapy. Steroid therapy explained leukocytosis. No evidence of infection. She received 2 L IV fluid therapy. No evidence of DKA. She also received p.o. Percocet and IV morphine. She is discharged home. Chemistry reveals mild hyponatremia corrected to 131. Venous pH within normal limits. H&H does reveal hemoconcentration. Critical care attestation.: If time is entered above; I have spent that time in minutes in the direct care of this critically ill patient, excluding procedure time. ED Disposition Clinical Impression: Uncontrolled diabetes mellitus, Dehydration, Tension headache Disposition: 01 HOME / SELF CARE / HOMELESS Is pt being admited?: No Does the pt Need Aspirin: No Condition: Stable Instructions: Diabetes Mellitus Type 2 in Adults (ED), Tension Headache, Adult, [id number] Referrals: PRIMARY CARE, [Primary Care Provider] - 3-5 Days
[2021-05-19] MEDS ORDERED: MORPHINE 4 MG/1 ML INJ IV ONE (13:36)
[2021-05-19] MEDS ORDERED: oxyCODONE /ACETAMINOPHEN 5-325MG TAB PO ONE (13:36)
== END 2021-05-19 14:43 | disposition home or self-care (01) ==
LOC: ED 08:33
DX: E11.9 Type 2 diabetes mellitus without complications (principal); E86.0 Dehydration; R51.9 Headache, unspecified; I10 Essential (primary) hypertension; Z87.891 Personal history of nicotine dependence; Z88.0 Allergy status to penicillin; Z90.49 Acquired absence of other specified parts of digestive tract; Z88.6 Allergy status to analgesic agent
CPT/HCPCS: 36415; 71250; 74176; 80053; 82805; 83735; 84100; 85025; 87040; 96361; 96374; 96375; 99284; J2270; J2405

== ENCOUNTER 2022-01-27 18:09 | Emergency (ER) | payer OTHER ==
[2022-01-27 19:27] VITALS: BP 117/75
== END 2022-01-28 02:48 | disposition left against medical advice (07) ==
LOC: ED 18:09
DX: R07.89 Other chest pain (principal); R10.9 Unspecified abdominal pain; Z53.21 Procedure and treatment not carried out due to patient leaving prior to being seen by health care provider